=== PATIENT | male | born 1930 | race Caucasian/White ===

== ENCOUNTER 2017-01-14 14:13 | Emergency (ER) | payer BC ==
[~2017-01-14] VITALS: Ht 172.7 cm; Wt 66.0 kg
[~2017-01-14 14:13] MED LIST: CRD2 PO; CZR25 PO; MULTCAP42 PO; [UNRECOGNIZED DRUG - CODE] PO
[2017-01-14 14:26] VITALS: TEMP 36.7; Ht 172.7 cm; Wt 66.0 kg
[2017-01-14] MEDS ORDERED: DOXA1TAB88 PO (15:16)
[2017-01-14] MEDS ORDERED: ASPI81TA28 PO (15:16)
[2017-01-14] MEDS ORDERED: ACET-1256 PO (15:16)
[2017-01-14] MEDS ORDERED: CARB25TA12 PO (15:16)
[2017-01-14] MEDS ORDERED: POLY335019 PO (15:16)
[2017-01-14] MEDS ORDERED: NAPR-1169 PO (15:16)
--- NOTE | 2017-01-14 15:38 | DIAGNOSTIC IMAGING REPORT ---
LUMBAR SPINE 5 VIEWS HISTORY: L-S1 back pain x1wk COMPARISON: Lumbar spine 05/06/2011. FINDINGS: There is no fracture. 3 mm of retrolisthesis of L2 on L3 and 3 mm of anterolisthesis of L4 and L5. This is similar to the prior study. Mild to moderate disc space narrowing with large endplate osteophytes throughout the lumbar spine. There is moderate to severe facet arthrosis within the mid to lower lumbar spine. This remains unchanged. IMPRESSION: Similar degenerative changes as described above. No acute fracture within the lumbar spine. Electronically signed by: Esdras Hinkle M.D. 01/14/2017 3:37 PM Dictated Date/Time: 01/14/2017 3:33 PM
--- NOTE | 2017-01-14 16:09 | EMERGENCY ROOM VISIT NOTE ---
ED Visit Note First contact with patient: 14:46 I saw this patient in conjunction with Dontrell Boo PA-C. I agree with his decision-making and treatment plan.
[2017-01-14] MEDS ORDERED: HYDR-5688 PO (16:18)
[2017-01-14 16:26] VITALS: BP 153/82; PULSE 77; O2SAT 100
--- NOTE | 2017-01-15 10:30 | EMERGENCY ROOM VISIT NOTE ---
ED Visit Note First contact with patient: 14:46 Chief Complaint: Lower back pain. History of Present Illness: Mr. Bro is an 86-year-old white male who ambulates into the ED accompanied by multiple family members complaining of lumbar back pain. Historically patient denies any prior significant back disease/surgeries. Patient reports 6 days ago he spilled something on the floor. He then went down and now the floor and scrub the floor to clean up the mass. He reports while he was scrubbing the floor he felt like he "pulled something". After standing he reports he had intermittent mild back pain. Since that time the pain has gradually increased in intensity. Currently he describes the pain as a sharp sensation. He places his discomfort predominantly over the right sacroiliac joint but does also report he has some mild pain over the left sacroiliac joint area. His pain occurs with the initial flexion at the waist to sit down and extension of the waist to stand up. Once he is in these positions he is comfortable and describes minimal pain. The severity of his pain is 10/10. His pain is nonradiating. His cranium improves when he is not flexing or extending at the waist. He has taken intermittent ibuprofen with minimal relief of his discomfort. He denies any associated fevers, chills, sweats, skin eruptions, skin color changes, urinary symptoms, hematuria, abdominal pain, nausea, vomiting, diarrhea, constipation, rectal bleeding, black/tarry stools, genital paresthesias, bowel and bladder dysfunction, lower extremity weakness/numbness/tingling. Review of Systems: As noted above in history of present illness. At least body systems were reviewed and found to be negative as noted above. Past Medical History: Hypertension, Parkinson's disease, status post right knee arthroplasty and tonsillectomy. Current Medications: Home Meds and Scripts Medications Dose Route/Sig Max Daily Dose Days Date Category Dose Instructions Miralax (Polyethylene Glycol 3350) 1 Pow 17 Gm PO DAILY PRN 01/14/17 Reported Tylenol (Acetaminophen) 500 Mg Tab 500-1,000 Mg PO DIRECTED PRN 01/14/17 Reported Naprosyn (Naproxen) 500 Mg Tab 500 Mg PO BID PRN 01/14/17 Reported Sinemet 25MG/100MG (Carbidopa/Levodopa) Tab 1 Tab PO TID 01/14/17 Reported TAKES AM, NOON, HS. Aspirin Ec (Aspirin) 81 Mg Tab 81 Mg PO QAM 01/14/17 Reported Doxazosin Mesylate 1 Mg Tab 1 Mg PO HS 01/14/17 Reported Selegiline HCl 5 Mg Tab 5 Mg PO BIDM 04/07/14 Reported MORNING AND NOON WITH MEALS Allergies to Medications: Bactrim, clopidogrel, allopurinol. Social History: Patient is currently retired; he lives with his and feels safe in his home environment; he denies tobacco use; he admits to alcohol use. Physical Examination: Vital Signs: Date Time Temp Pulse Resp B/P Pulse Ox O2 Delivery O2 Flow Rate FiO2 01/14/17 16:26 77 153/82 100 01/14/17 14:26 36.7 103 18 168/77 98 Room Air GENERAL: 86-year-old male in mild distress due to pain, nontoxic-appearing, afebrile and hemodynamically stable. Patient does rest comfortably but when he starts to flex and extend his lumbar spine as noted above his pain is apparently severe NEUROLOGICAL: Awake, alert and oriented to person, place and time. Answering questions appropriately and following commands. Normal gait. Good hand eye coordination. No focal motor or sensory deficits. SKIN: Warm, dry and pink. No soft tissue eruptions or trauma noted. HEENT: Atraumatic and normocephalic. PERRLA. Sclera white and conjunctiva pink. Airway patent. Speech normal. No lymphadenopathy. Trachea midline. No jugular venous distention. BACK: No tenderness over the bony cervical and thoracic spine. Mild tenderness over the area of the left sacroiliac joint without bony deformity, swelling or ecchymosis. Decreased range of motion predominantly in flexion and extension of the waist due to pain. Negative straight leg raise test. No CVA tenderness. THORAX: Lungs sounds are clear to auscultation and equal bilaterally with symmetrical chest wall. ABDOMEN: Flat, soft and nontender. Positive bowel sounds in all quadrants. No guarding, rigidity or organomegaly. EXTREMITIES: Moves all extremities well on command and with purpose. All distal neurovascular statuses are intact and equal bilaterally. No calf tenderness or cords. Lower Extremities: 2+ patellar and Achilles deep tendon reflexes intact and equal bilaterally. He was able to distinguish light sensations through all dermatomes of the legs and feet. 4/5 muscle strength in flexion and extension and abduction and abduction of the hips, flexion and extension of the knees and plantar flexion and dorsiflexion of the ankles. ED Course: Patient is assessed as noted above. Lumbar Spine X-Rays: Were reviewed by myself and read by the radiologist and shows no acute fractures. 3 mm retolisthesis of L2 on L3 and 3 mm of anterolisthesis of L4-L5 similar to previous x-rays. [id number] disc narrowing with large endplate osteophytes throughout the lumbar spine. Moderate to severe facet that arthrosis within the mid to lower lumbar spine. These x-rays were similar to previous from 2010. Patient was offered pain medication and refused. Patient's case was reviewed with Dr. Nguyễn; he independently assessed the patient we agreed on diagnostic approach, treatment, disposition and plan. Patient and family members were educated about jeermieight's findings and instructed on his treatment plan; they verbalized understanding and agreement with this plan. Clinical Impression: Lumbar back pain. Disposition: Patient discharged home in stable condition accompanied by his family member; prior to departure he was reassessed and subjectively reported he was feeling better. Plan: Patient was encouraged to continue his ibuprofen and if he felt like he was not receiving enough relief he was prescribed one Henry 5/325 tablets every 6 hours as needed for pain. Additional cough or measures were discussed with the patient including the use of ice and proper standing and moving techniques. Patient was encouraged to follow-up with family physician early this week for recheck. Patient was encouraged return the ED for worsening/uncontrolled pain, abdominal pain, nausea/vomiting, leg weakness/numbness/tingling or any new/concerning symptoms.
[2017-07-18] MEDS ORDERED: TPRSR25 PO (17:13)
[2017-07-18] MEDS ORDERED: ELAS-2208 (17:24)
== END 2017-01-14 16:27 | disposition home or self-care (01) ==
LOC: C.EDB 14:14 → C.EDD 16:27
DX: M54.5 Low back pain (principal); I10 Essential (primary) hypertension; G20 Parkinson's disease; Z96.651 Presence of right artificial knee joint; Z98.890 Other specified postprocedural states; Z88.8 Allergy status to other drugs, medicaments and biological substances

== ENCOUNTER 2017-02-17 20:01 | Observation (INO) | payer BC ==
[~2017-02-17] VITALS: Ht 172.7 cm; Wt 69.8 kg
[~2017-02-17 20:01] MED LIST changes: +ACET-1256 PO; +ASPI81TA28 PO; +CARB25TA12 PO; -CRD2 PO; -CZR25 PO; +DOXA1TAB88 PO; +HYDR-5688 PO; -MULTCAP42 PO; +NAPR-1169 PO; +POLY335019 PO
[2017-02-17 20:34] LABS: BASO % 0.2 %; BASO ABS # 0.01 K/uL (0-0.2); COMPLETE YES; EOS % 1.5 %; HEMATOCRIT 41.2 % (42-52); IG% 0.2 %; LYMPH ABS # 1.53 K/uL (1.2-3.4); MEAN CELL VOLUME 93.2 fL (80-100); MEAN CORPUSCULAR HEMOGLOBIN 30.8 pg (25-34); MEAN PLATELET VOLUME 10.8 fL (7.4-10.4); MONO % 12.3 %; NEUT % 57.8 %; PLATELET COUNT 216 K/uL (130-400); RED BLOOD COUNT 4.42 M/uL (4.7-6.1); WHITE BLOOD COUNT 5.46 K/uL (4.8-10.8)
[2017-02-17 20:43] LABS: ALT/SGPT 10 U/L (12-78); AST/SGOT 13 U/L (15-37); BLOOD UREA NITROGEN 23 mg/dl (7-18); BUN/CREATININE RATIO 20.9 (10-20); CALCIUM 8.5 mg/dl (8.5-10.1); CARBON DIOXIDE 29 mmol/L (21-32); CHLORIDE 104 mmol/L (98-107); GLUCOSE 108 mg/dl (70-99); SODIUM 141 mmol/L (136-145)
[2017-02-17 20:48] LABS: ALKALINE PHOSPHATASE 70 U/L (45-117); CKMB/CK RATIO 1.8 (0-3.0)
[2017-02-17] MEDS ORDERED: ONDANSETRON INJ 2 MG/ML 2 ML VIAL IV STA (20:49)
--- NOTE | 2017-02-17 20:50 | DIAGNOSTIC IMAGING REPORT ---
SINGLE VIEW CHEST CLINICAL HISTORY: Atypical chest pain. FINDINGS: 2 AP, portable, upright chest radiographs are compared to study dated 10/14/2014. Correlation is made with chest CT dated 05/13/2011. The examination is degraded by portable technique and patient rotation. The heart is enlarged and there is atherosclerotic calcification of the thoracic aorta. The pulmonary vasculature is noncongested. Chronic interstitial thickening is similar to previous. No airspace consolidation, pleural effusion, or pneumothorax is seen. The skeletal structures are osteopenic. Degenerative change is noted throughout the thoracic spine. IMPRESSION: Cardiomegaly with no acute cardiopulmonary abnormality. Electronically signed by: Juan M Anne M.D. 02/17/2017 8:49 PM Dictated Date/Time: 02/17/2017 8:47 PM
[2017-02-17] MEDS ORDERED: SODIUM CHLORIDE 0.9% 1000ML 1,000 ML IV STA (20:55)
[2017-02-17] MEDS ORDERED: NITROGLYCERIN 0.4 MG SL PER TAB CHARGE SL PRN (21:00)
--- NOTE | 2017-02-17 21:59 | DIAGNOSTIC IMAGING REPORT ---
CT SCAN OF THE BRAIN WITHOUT IV CONTRAST CLINICAL HISTORY: Dizziness. COMPARISON STUDY: CT of the brain dated 10/14/2014. TECHNIQUE: Unenhanced axial CT scan of the brain is performed from the vertex to the skull base. CT DOSE: 537.48 mGy.cm FINDINGS: Brain parenchyma: There are age-related involutional changes noting mild subcortical and periventricular microangiopathic change. There is no hemorrhage, mass effect, or evidence of acute territorial ischemia by CT criteria. Hickey-white matter is preserved. No extra-axial fluid collection is seen. Ventricles, sulci, cisterns: Prominent secondary to involutional change. Intracranial vasculature: There is atherosclerotic calcification of the cavernous carotid and vertebral arteries. Calvarium: Unremarkable. Sinuses and mastoids: The visualized paranasal sinuses are clear. The mastoid air cells are well pneumatized. Orbits: The bony orbits are grossly intact. IMPRESSION: There is no hemorrhage, mass effect, or evidence of acute territorial ischemia by CT criteria. Electronically signed by: Juan M Anne M.D. 02/17/2017 9:58 PM Dictated Date/Time: 02/17/2017 9:56 PM
[2017-02-17] MEDS ORDERED: FSM70 PO (22:21)
[2017-02-17] MEDS ORDERED: NITROGLYCERIN OINT 2% 1GM PACKET EXT ONE (22:30)
[2017-02-17 23:56] LABS: MAGNESIUM 2.1 mg/dl (1.8-2.4)
[2017-02-18] VITALS (12 sets, daily range): BP systolic 100–168; BP diastolic 55–93; PULSE 44–92; TEMP 36.3–36.7; O2SAT 94–100; Ht 172.7 cm; Wt 69.8 kg
--- NOTE | 2017-02-18 00:29 | EMERGENCY ROOM VISIT NOTE ---
History Report prepared by Laureano: Netta Hutchins Under the Supervision of: Dr. Dontrell Sheriff M.D. First contact with patient: 20:26 Chief Complaint: CHEST PAIN Stated Complaint: CHEST PAIN Nursing Triage Summary: Pt reports feeling dizzy this morning and went away around noon. Pt then starting feeling chest tightness that progressively got worse throughout the day. Hx parkinsons. Pt received 324mg aspiring from EMS. History of Present Illness The patient is a 87 year old male who presents to the Emergency Room via EMS with complaints of constant mid-chest tightness starting about 4 hours ago. He woke up with dizziness this morning. He had another episode of dizziness after the chest pain started. He currently reports some lightheadedness. He is unable to ambulate as normal due to the dizziness. He also currently complains of some mild nausea. He received Aspirin in route to the Emergency Room. He denies any history of similar pain. He does not have a history of heart disease. He denies any history of stress tests or heart catheterization. He has a history of hypotension but is no longer on any medications. He also has a history of Parkinson's disease. Pt denies LOC, headache, fevers, chills, cough, diaphoresis, visual changes, neck pain, breathing difficulties, vomiting, abdominal pain, back pain, melena, hematochezia, urinary symptoms, numbness, weakness, lymphadenopathy, rash, or other complaints. Source of History: patient Onset: about 4 hours ago Position: chest (mid) Quality: other (tightness) Timing: constant Modifying Factors (Relieving): other (Aspirin) Associated Symptoms: + nausea Review of Systems See HPI for pertinent positives and negatives. A total of ten systems were reviewed and were otherwise negative. Past Medical & Surgical Medical Problems: (1) Anemia (2) Bronchitis (3) Chest pain (4) Closed head injury (5) Facial contusion (6) Facial laceration (7) Fall (8) Hyperlipidemia Nec/Nos (9) Hypertension Nos (10) Lower extremity edema (11) Parkinson disease (12) Thrombocytopenia (13) Weakness Surgical Problems: (1) S/P knee replacement Family History Cancer Diabetes mellitus Social History Smoking Status: Former Smoker Alcohol Use: occasionally Drug Use: none Marital Status: Occupation Status: retired Current/Historical Medications Scheduled Alendronate Sodium (Alendronate Sodium), 1 TAB PO WK Aspirin (Aspirin Ec), 81 MG PO QAM Carbidopa/Levodopa (Sinemet 25MG/100MG), 1 TAB PO TID Doxazosin Mesylate (Doxazosin Mesylate), 1 MG PO HS Selegiline HCl (Selegiline HCl), 5 MG PO BIDM Scheduled PRN Acetaminophen (Tylenol), 500-1,000 MG PO DIRECTED PRN for Pain Hydrocodone/Acetaminophen 5MG/325MG ([place] 5MG/325MG), 1 TABLET PO Q6H PRN for Pain Naproxen (Naprosyn), 500 MG PO BID PRN for Pain Polyethylene Glycol 3350 (Miralax), 17 GM PO DAILY PRN for Constipation Allergies Coded Allergies: Sulfamethoxazole w/Trimethoprim (Verified Allergy, Severe, ANEMIA, THROMBOCYTOPENIA, 02/17/17) Clopidogrel (Verified Allergy, Unknown, UNKNOWN, 02/17/17) Allopurinol (Verified Adverse Reaction, Intermediate, DIARRHEA, 02/17/17) Physical Exam Vital Signs Date Time Temp Pulse Resp B/P (MAP) Pulse Ox O2 Delivery O2 Flow Rate FiO2 02/18/17 00:02 86 18 117/79 97 Room Air 02/17/17 22:19 82 20 172/75 96 Room Air 02/17/17 20:50 80 20 149/86 97 Room Air 02/17/17 20:30 96 Room Air 02/17/17 20:24 90 20 172/81 96 Room Air 02/17/17 20:16 88 02/17/17 20:10 37.0 87 16 186/109 99 Room Air 02/17/17 20:10 99 Room Air 02/17/17 20:10 Room Air Physical Exam GENERAL: Awake, alert, well-appearing, in no distress HENT: Normocephalic, atraumatic. Oropharynx unremarkable. EYES: Normal conjunctiva. Sclera non-icteric. NECK: Supple. No nuchal rigidity. FROM. No JVD. RESPIRATORY: Clear to auscultation. CARDIAC: Regular rate, normal rhythm. Extremities warm and well perfused. Pulses equal. ABDOMEN: Soft, non-distended. No tenderness to palpation. No rebound or guarding. No masses. RECTAL: Deferred. MUSCULOSKELETAL: Chest examination reveals no tenderness. The back is symmetrical on inspection without obvious abnormality. There is no CVA tenderness to palpation. No joint edema. LOWER EXTREMITIES: Calves are equal size bilaterally and non-tender. No edema. No discoloration. NEURO: Normal sensorium. No sensory or motor deficits noted. Parkinson tremor. SKIN: No rash or jaundice noted. Medical Decision & Procedures ER Provider Diagnostic Interpretation: X-ray: Per my interpretation, radiologist review. SINGLE VIEW CHEST CLINICAL HISTORY: Atypical chest pain. FINDINGS: 2 AP, portable, upright chest radiographs are compared to study dated 10/14/2014. Correlation is made with chest CT dated 05/13/2011. The examination is degraded by portable technique and patient rotation. The heart is enlarged and there is atherosclerotic calcification of the thoracic aorta. The pulmonary vasculature is noncongested. Chronic interstitial thickening is similar to previous. No airspace consolidation, pleural effusion, or pneumothorax is seen. The skeletal structures are osteopenic. Degenerative change is noted throughout the thoracic spine. IMPRESSION: Cardiomegaly with no acute cardiopulmonary abnormality. Electronically signed by: Jua nM Anne M.D. 02/17/2017 8:49 PM Dictated Date/Time: 02/17/2017 8:[address]: Radiology results as stated below per my review and radiologist interpretation CT SCAN OF THE BRAIN WITHOUT IV CONTRAST CLINICAL HISTORY: Dizziness. COMPARISON STUDY: CT of the brain dated 10/14/2014. TECHNIQUE: Unenhanced axial CT scan of the brain is performed from the vertex to the skull base. CT DOSE: 537.48 mGy.cm FINDINGS: Brain parenchyma: There are age-related involutional changes noting mild subcortical and periventricular microangiopathic change. There is no hemorrhage, mass effect, or evidence of acute territorial ischemia by CT criteria. Hickey-white matter is preserved. No extra-axial fluid collection is seen. Ventricles, sulci, cisterns: Prominent secondary to involutional change. Intracranial vasculature: There is atherosclerotic calcification of the cavernous carotid and vertebral arteries. Calvarium: Unremarkable. Sinuses and mastoids: The visualized paranasal sinuses are clear. The mastoid air cells are well pneumatized. Orbits: The bony orbits are grossly intact. IMPRESSION: There is no hemorrhage, mass effect, or evidence of acute territorial ischemia by CT criteria. Electronically signed by: Juan M Anne M.D. 02/17/2017 9:58 PM Dictated Date/Time: 02/17/2017 9:56 PM Laboratory Results 02/17/17 19:40 Red Blood Count 4.42, Mean Corpuscular Volume 93.2, Mean Corpuscular Hemoglobin 30.8, Mean Corpuscular Hemoglobin Concent 33.0, Mean Platelet Volume 10.8, Neutrophils (%) (Auto) 57.8, Lymphocytes (%) (Auto) 28.0, Monocytes (%) (Auto) 12.3, Eosinophils (%) (Auto) 1.5, Basophils (%) (Auto) 0.2, Neutrophils # (Auto ) 3.16, Lymphocytes # (Auto) 1.53, Monocytes # (Auto) 0.67, Eosinophils # (Auto ) 0.08, Basophils # (Auto) 0.01 02/17/17 19:40 Test 02/17/17 19:40 White Blood Count 5.46 K/uL (4.8-10.8) Red Blood Count 4.42 M/uL (4.7-6.1) Hemoglobin 13.6 g/dL (14.0-18.0) Hematocrit 41.2 % (42-52) Mean Corpuscular Volume 93.2 fL (80-100) Mean Corpuscular Hemoglobin 30.8 pg (25-34) Mean Corpuscular Hemoglobin Concent 33.0 g/dl (32-36) Platelet Count 216 K/uL (130-400) Mean Platelet Volume 10.8 fL (7.4-10.4) Neutrophils (%) (Auto) 57.8 % Lymphocytes (%) (Auto) 28.0 % Monocytes (%) (Auto) 12.3 % Eosinophils (%) (Auto) 1.5 % Basophils (%) (Auto) 0.2 % Neutrophils # (Auto) 3.16 K/uL (1.4-6.5) Lymphocytes # (Auto) 1.53 K/uL (1.2-3.4) Monocytes # (Auto) 0.67 K/uL (0.11-0.59) Eosinophils # (Auto) 0.08 K/uL (0-0.5) Basophils # (Auto) 0.01 K/uL (0-0.2) RDW Standard Deviation 47.6 fL (36.4-46.3) RDW Coefficient of Variation 13.9 % (11.5-14.5) Immature Granulocyte % (Auto) 0.2 % Immature Granulocyte # (Auto) 0.01 K/uL (0.00-0.02) Activated Partial Thromboplast Time 26.7 SECONDS (21.0-31.0) Partial Thromboplastin Ratio 1.0 Anion Gap 8.0 mmol/L (3-11) Est Creatinine Clear Calc Drug Dose 45.0 ml/min Estimated GFR () 70.1 Estimated GFR (Non- 60.5 BUN/Creatinine Ratio 20.9 (10-20) Calcium Level 8.5 mg/dl (8.5-10.1) Magnesium Level 2.1 mg/dl (1.8-2.4) Total Bilirubin 0.5 mg/dl (0.2-1) Direct Bilirubin 0.1 mg/dl (0-0.2) Aspartate Amino Transf (AST/SGOT) 13 U/L (15-37) Alanine Aminotransferase (ALT/SGPT) 10 U/L (12-78) Alkaline Phosphatase 70 U/L (45-117) Total Creatine Kinase 50 U/L (39-308) Creatine Kinase MB 0.9 ng/ml (0.5-3.6) Creatine Kinase MB Ratio 1.8 (0-3.0) Troponin I < 0.015 ng/ml (0-0.045) Total Protein 7.6 gm/dl (6.4-8.2) Albumin 4.1 gm/dl (3.4-5.0) Lipase 457 U/L (73-393) Thyroid Stimulating Hormone (TSH) 2.090 uIu/ml (0.300-4.500) Laboratory results reviewed by me Medications Administered Medications (Trade) Dose Ordered Sig/Robbie Route Start Time Stop Time Status Last Admin Dose Admin Ondansetron HCl (Zofran Inj) 4 mg NOW STAT IV 02/17/17 20:49 02/17/17 20:51 DC 02/17/17 20:59 4 MG Sodium Chloride 1,000 ml @ 125 mls/hr Q8H STAT IV 02/17/17 20:55 02/18/17 04:54 02/17/17 21:00 125 MLS/HR Nitroglycerin (Nitroglycerin 2% Oint) 0.5 inch NOW ONCE EXT 02/17/17 22:30 02/18/17 00:04 DC 02/17/17 22:45 0.5 INCH ECG Indication: chest pain Rate (beats per minute): 85 Rhythm: sinus rhythm Findings: PAC, no acute ischemic change ED Course 2025: The patient was evaluated in room C04. A complete history and physical exam was performed. Medication Reconciliation: I attest that I have personally reviewed the patient' s current medication list Blood pressure screening: Patient was found to have an elevated blood pressure and was referred to their primary doctor for recheck and further treatment. 2048: Zofran Inj 4 mg IV 2099: Nitroglycerin 0.4 mg SL 2212: Upon reexamination, the patient was resting comfortably. I discussed the test results and treatment plan with him. The patient will be evaluated for further management. 2229: Nitroglycerin 0.5 Inch EXT 2235: I discussed the patient's case with Dr. Rosario, from [facility]. Medical Decision Triage Nursing notes reviewed. The patient's presentation and history were concerning for chest tightness and difficulty walking. Etiologies such as cardiac ischemia, aortic dissection, pulmonary embolism, pneumonia, pneumothorax, musculoskeletal, infections, gastrointestinal, neurologic as well as others were entertained. The patient was evaluated. He had been given aspirin. His ECG was nonischemic. Blood work was obtained. The patient was ordered Zofran and nitroglycerin. Head CT was ordered. Chest x-ray was unremarkable. The patient declined any nitroglycerin tablets. On reassessment his blood pressure still moderately elevated. He was feeling better but still had some tightness. He was given nitro paste. His CBC and chemistry panel were unremarkable. The patient had an unremarkable head CT. Given his chest symptoms and neurologic and plans the patient will need further evaluation and management in hospital. Consult patient was made with internal medicine. Patient was evaluated in the Emergency Room for further treatment. The chart was completed utilizing [employer] Speech voice recognition software. Grammatical errors, random word insertions, pronoun errors, and incomplete sentences are an occasional consequence of this system due to software limitations, ambient noise, and hardware issues. Any formal questions or concerns about the content, text, or information contained within the body of this dictation should be directly addressed to the physician for clarification. Consults Time Called: 2229 Consulting Physician: Dr. Rosario, from [facility] Returned Call: [phone] I discussed the [facility] Impression Primary Impression: Substernal chest pain Additional Impression: Gait disturbance Scribe Attestation The scribe's documentation has been prepared under my direction and personally reviewed by me in its entirety. I confirm that the note above accurately reflects all work, treatment, procedures, and medical decision making performed by me. Departure Information Dispostion Being Evaluated By Hospitalist Referrals Micheal Ramirez M.D. (PCP) Patient Instructions My [facility] Problem Qualifiers
[2017-02-18] MEDS ORDERED: IV FLUIDS COMPLETED PRN (00:45)
[2017-02-18] MEDS ORDERED: ACETAMINOPHEN 325 MG TAB PO PRN (01:00)
[2017-02-18] MEDS ORDERED: POLYETHYLENE (MIRALAX) 17 GM PACK PO PRN (01:00)
[2017-02-18] MEDS ORDERED: ONDANSETRON INJ 2 MG/ML 2 ML VIAL IV PRN (01:00)
[2017-02-18] MEDS ORDERED: MoRPHine SULFATE 2 MG/ML CARP IV PRN (01:00)
[2017-02-18] MEDS ORDERED: NITROGLYCERIN 0.4 MG SL PER TAB CHARGE SL PRN (01:00)
[2017-02-18] MEDS ORDERED: HYDROCODONE/ACETAMOPHEN 5/325MG TAB PO PRN (01:00)
[2017-02-18] MEDS ORDERED: SODIUM CHLORIDE 0.9% 1000ML 1,000 ML IV ONE (02:15)
[2017-02-18 06:28] LABS: BASO % 0.4 %; BASO ABS # 0.02 K/uL (0-0.2); COMPLETE YES; HEMATOCRIT 37.9 % (42-52); IG% 0.2 %; LYMPH % 29.1 %; LYMPH ABS # 1.45 K/uL (1.2-3.4); MEAN CELL VOLUME 92.7 fL (80-100); MEAN CORPUSCULAR HEMOGLOBIN 29.8 pg (25-34); MEAN CORPUSCULAR HGB CONC 32.2 g/dl (32-36); MEAN PLATELET VOLUME 10.3 fL (7.4-10.4); MONO % 10.4 %; NEUT % 56.9 %; PLATELET COUNT 176 K/uL (130-400); RED BLOOD COUNT 4.09 M/uL (4.7-6.1); WHITE BLOOD COUNT 4.99 K/uL (4.8-10.8)
[2017-02-18 06:39] LABS: PROTHROMBIN TIME (PATIENT) 10.7 SECONDS (9.0-12.0)
[2017-02-18 06:56] LABS: BLOOD UREA NITROGEN 20 mg/dl (7-18); CALCIUM 8.2 mg/dl (8.5-10.1); CARBON DIOXIDE 29 mmol/L (21-32); CHLORIDE 108 mmol/L (98-107); CREATININE 0.99 mg/dl (0.60-1.40); GLUCOSE 89 mg/dl (70-99); SODIUM 143 mmol/L (136-145)
[2017-02-18] MEDS ORDERED: LORAZEPAM 2 MG/ML 1 ML VIAL IV PRN (07:15)
[2017-02-18] MEDS ORDERED: LACTATED RINGER'S 1000ML 1,000 ML IV ONE (07:15)
[2017-02-18] MEDS ORDERED: LORAZEPAM 1 MG TAB PO PRN (07:30)
[2017-02-18] MEDS ORDERED: LORAZEPAM INJ 0.5 MG in SYRINGE 0.75 ML IV PRN (07:30)
[2017-02-18] MEDS: ASPIRIN 81 MG ECTAB PO SCH (07:53)
[2017-02-18] MEDS: THIAMINE HCL 100 MG TAB PO SCH (07:53)
[2017-02-18] MEDS: SELEGILINE HCL 5 MG CAP PO SCH ×2 (07:53→16:40)
[2017-02-18] MEDS: CARBIDOPA/LEVODOPA 25/100MG TAB PO SCH ×3 (07:53→20:16)
[2017-02-18] MEDS: FLINTSTONES COMPLETE CHEWABLE TAB PO SCH (07:53)
[2017-02-18] MEDS: ENOXAPARIN 40 MG/0.4 ML SYR SC SCH (07:54)
[2017-02-18] MEDS ORDERED: PNEUMOCOCCAL POLYSACCHARIDES 25 MCG/0.5 ML VIAL/SYR IM. ONE (08:00)
[2017-02-18] MEDS ORDERED: PNEUMOCOCCAL ADMINISTRATION CHARGE ONE (08:00)
[2017-02-18] MEDS ORDERED: GABAPENTIN 600 MG TAB PO ONE (08:00)
[2017-02-18] MEDS ORDERED: DOXAZosin TAB 1 MG TAB PO ONE (08:00)
--- NOTE | 2017-02-18 08:25 | HISTORY & PHYSICAL EXAMINATION ---
DATE OF ADMISSION: 02/18/2017 PRIMARY CARE PHYSICIAN: Dr. Ramirez. CHIEF COMPLAINT: Chest pain. HISTORY OF PRESENT ILLNESS: Hx obtained from px and records. Medical history significant for Parkinson disease, hypertension, chronic diastolic dysfunction as per records, PACs per records, past tobacco abuse, ETOH abuse as per records. Recent confinement August 2014 for leg swelling, attributed to not being very active. Yesterday morning, the patient noted dizziness described as lightheadedness, had chest tightness, out of breath, no cough symptoms. Patient does not check blood pressure at home. Admits to daily intake of OTC NSAIDs for right lower extremity pain. Denies abdominal pain. At the Emergency Room, systolic blood pressure noted to be 180s. Chest tightness relieved with nitroglycerin. MEDICAL HISTORY: As above. Deputy Sheriff Generalist/Bailiff is Dr. Cornejo of [facility]. SURGERIES: He has had a knee surgery, tonsillectomy, prostate biopsy, cataract surgery. HOME MEDICATIONS: Include MiraLax, aspirin, Tylenol, alendronate, Sinemet, doxazosin, naproxen. ALLERGIES: BACTRIM, PLAVIX. ALLOPURINOL FAMILY HISTORY: Hypertension. PERSONAL AND SOCIAL HISTORY: Past tobacco abuse. Daily alcohol beverage intake. ("2 swallows/day"), retired from TV work REVIEW OF SYSTEMS: As per HPI. all other ROS negative PHYSICAL EXAMINATION: VITAL SIGNS: Blood pressure was noted to be 186/109 pulse rate 86, RR 18, T 37 sats 100% in room air. GENERAL: Noted to be comfortable, no respiratory distress, looks younger for stated age. SKIN: Pallor. HEENT: Pale palpebral conjunctivae. Dry mucosa. NECK: No JVD. supple CHEST: Clear to auscultation. HEART: Regular rate and rhythm. ABDOMEN: Soft. EXTREMITIES: Minimal LE edema, no tenderness. NEUROLOGIC: no gross focality except for intention tremors. gait and stance not assessed LABORATORY DATA: Hemoglobin was noted to be 13.6, hematocrit 41.2, platelets 216. Sodium 140 chloride 104, CO2 23, glucose 108. trop 0 IMAGING DATA: Chest x-ray - cardiomegaly. CT head, no acute pathology. EKG as per my interpretation rate 85, normal sinus rhythm, no ischemia. PACs ASSESSMENT: 1. Chest pain, dizziness possibly from hypertensive urgency NSAID intake poss contributory. ro orthostasis as cause of dizziness 2. Parkinson's, stable on meds. 3. past tobacco abuse. 4. alcohol abuse per records. 5 LE pain ro dvt PLAN: Observation PCU. facilitate home Cardura, may need augment home rx check orthostatic VS Follow cardiac markers 2D echo, Cardio consult RE cp (Dr. Cornejo as per patient request) px counselled about adverse effects of NSAIDs on HTN LE dopplers ro dvt DT precautions. PT OT eval DVT prophylaxis. Lovenox SQ Full code. Patient's son requesting updates from providers. Mr. Erich Bro at [phone]. MTDD
[2017-02-18] MEDS ORDERED: METOPROLOL TARTRATE 1 MG/ML VIAL IV ONE (09:00)
--- NOTE | 2017-02-18 09:56 | DIAGNOSTIC IMAGING REPORT ---
BILATERAL LOWER EXTREMITY VENOUS DOPPLER HISTORY: leg pain COMPARISON STUDY: None. FINDINGS: There is normal compressibility, flow, and augmentation within the bilateral lower extremity deep venous systems. IMPRESSION: No DVT within the right or left lower extremity. Electronically signed by: Esdras Hinkle M.D. 02/18/2017 9:54 AM Dictated Date/Time: 02/18/2017 9:54 AM
[2017-02-18] MEDS: GABAPENTIN 600 MG TAB PO SCH ×2 (13:58→20:16)
--- NOTE | 2017-02-18 15:29 | Progress Note ---
Internal Med Progress Note Date of Service: Feb 18, 2017. Provider Documentation: SUBJECTIVE: Patient denies any complaints today. No dizziness, chest tightness, pain, sob, cough, fever, chills, headaches, vertigo, nausea, vomiting No fever, chills. OBJECTIVE: Vital Signs-as noted below Exam: General-AAOX3, no distress Neck-Supple Lungs-AEBE , no wheezing, rhonchi Heart-S1, S2 normal Abdomen-Soft , non tender, BS present Extremities-No edema Neuro-AAOX3, Power 5/5 all extremities, No sensory deficits Lab data as noted below. ASSESSMENT & PLAN: ASSESSMENT AND PLAN : DIZZINESS- Had 2 episodes of dizziness yesterday - AM and PM described as " feeling that he would pass out". In evening, just couldnt get up and had some chest tightness and thus was brought to ER. No more dizziness or chest tightness today. No associated symptoms or neurological deficits. -D/D considered: Vasovagal, Autonomic dysfunction with hx of parkinsons disease of sinemet, posterior circulation stroke but lightheadedness more than vertigo with no associated neurological symptoms or signs, so less likely. -Will do orthostats -PT/OT -Work up- CT scan head- no acute abnormalities CHEST TIGHTNESS From hx , less likely to be cardiac etiology -EKG- no acute ischemic changes, Troponin x 2 negative -Cardiology consulted HYPERTENSIVE URGENCY BP 186/100s on presentation, now down to 110s -S/P IV Metoprolol 5 mg x 1 dose -Not on any medications at home. -Will monitor BP closely and accordingly add new medication as BP down already ELEVATED LIPASE No signs or symptoms of pancreatitis -Monitor ALCOHOL USE Daily 2-3 glasses of whiskey PARKINSONS -Says gait has not been an issue, was able to ambulate and go up and down the stairs yesterday -Continue with sinemet -PT/OT ordered DVT PRECAUTIONS FULL CODE DISPOSITION Continue with tele monitoring The patient's son requesting updates from providers, Mr. Erich Bro . Vital Signs: Date Time Temp Pulse Resp B/P (MAP) Pulse Ox O2 Delivery O2 Flow Rate FiO2 02/18/17 15:40 36.5 44 17 110/70 (83) 98 Room Air 02/18/17 14:19 92 104/59 (74) 02/18/17 12:00 Room Air 02/18/17 11:31 36.3 87 16 128/63 (84) 97 Room Air 02/18/17 09:09 84 110/73 (85) 02/18/17 09:00 84 110/73 02/18/17 08:00 Room Air 02/18/17 07:40 36.4 87 16 168/93 (118) 96 Room Air 02/18/17 04:52 36.7 86 20 166/79 Room Air 02/18/17 01:55 36.7 86 20 166/79 (108) 100 Room Air 02/18/17 01:36 79 20 155/72 97 02/18/17 00:02 86 18 117/79 97 Room Air 02/17/17 22:19 82 20 172/75 96 Room Air 02/17/17 20:50 80 20 149/86 97 Room Air 02/17/17 20:30 96 Room Air 02/17/17 20:24 90 20 172/81 96 Room Air 02/17/17 20:16 88 02/17/17 20:10 37.0 87 16 186/109 99 Room Air 02/17/17 20:10 99 Room Air 02/17/17 20:10 Room Air Lab Results: Results Past 24 Hours Test 02/17/17 19:40 02/18/17 06:15 Range/Units White Blood Count 5.46 4.99 4.8-10.8 K/uL Red Blood Count 4.42 4.09 4.7-6.1 M/uL Hemoglobin 13.6 12.2 14.0-18.0 g/dL Hematocrit 41.2 37.9 42-52 % Mean Corpuscular Volume 93.2 92.7 80-100 fL Mean Corpuscular Hemoglobin 30.8 29.8 25-34 pg Mean Corpuscular Hemoglobin Concent 33.0 32.2 32-36 g/dl Platelet Count 216 176 130-400 K/uL Mean Platelet Volume 10.8 10.3 7.4-10.4 fL Neutrophils (%) (Auto) 57.8 56.9 % Lymphocytes (%) (Auto) 28.0 29.1 % Monocytes (%) (Auto) 12.3 10.4 % Eosinophils (%) (Auto) 1.5 3.0 % Basophils (%) (Auto) 0.2 0.4 % Neutrophils # (Auto) 3.16 2.84 1.4-6.5 K/uL Lymphocytes # (Auto) 1.53 1.45 1.2-3.4 K/uL Monocytes # (Auto) 0.67 0.52 0.11-0.59 K/uL Eosinophils # (Auto) 0.08 0.15 0-0.5 K/uL Basophils # (Auto) 0.01 0.02 0-0.2 K/uL RDW Standard Deviation 47.6 47.0 36.4-46.3 fL RDW Coefficient of Variation 13.9 13.8 11.5-14.5 % Immature Granulocyte % (Auto) 0.2 0.2 % Immature Granulocyte # (Auto) 0.01 0.01 0.00-0.02 K/uL Activated Partial Thromboplast Time 26.7 21.0-31.0 SECONDS Partial Thromboplastin Ratio 1.0 Sodium Level 141 143 136-145 mmol/L Potassium Level 4.0 4.0 3.5-5.1 mmol/L Chloride Level 104 108 98-107 mmol/L Carbon Dioxide Level 29 29 21-32 mmol/L Anion Gap 8.0 6.0 3-11 mmol/L Blood Urea Nitrogen 23 20 7-18 mg/dl Creatinine 1.10 0.99 0.60-1.40 mg/dl Est Creatinine Clear Calc Drug Dose 45.0 50.0 ml/min Estimated GFR () 70.1 79.6 Estimated GFR (Non- 60.5 68.7 BUN/Creatinine Ratio 20.9 20.0 10-20 Random Glucose 108 89 70-99 mg/dl Calcium Level 8.5 8.2 8.5-10.1 mg/dl Magnesium Level 2.1 1.8-2.4 mg/dl Total Bilirubin 0.5 0.2-1 mg/dl Direct Bilirubin 0.1 0-0.2 mg/dl Aspartate Amino Transf (AST/SGOT) 13 15-37 U/L Alanine Aminotransferase (ALT/SGPT) 10 12-78 U/L Alkaline Phosphatase 70 45-117 U/L Total Creatine Kinase 50 39-308 U/L Creatine Kinase MB 0.9 0.5-3.6 ng/ml Creatine Kinase MB Ratio 1.8 0-3.0 Troponin I < 0.015 < 0.015 0-0.045 ng/ml Total Protein 7.6 6.4-8.2 gm/dl Albumin 4.1 3.4-5.0 gm/dl Lipase 457 637 73-393 U/L Thyroid Stimulating Hormone (TSH) 2.090 0.300-4.500 uIu/ml Prothrombin Time 10.7 9.0-12.0 SECONDS Prothromb Time International Ratio 1.0 0.9-1.1
--- NOTE | 2017-02-18 19:54 | Cardiology Consultation ---
Cardiology Consultation Date of Consultation: Feb 18, 2017 History of Present Illness Nabil Bro is a 87 year old male seen in cardiology consultation per the request of Dr. Devi for evaluation of chest discomfort. The patient's primary switchboard receptionist is Dr. Nabil Cornejo of our practice. The patient is followed for his history of frequent premature atrial contractions. The Holter monitor in December 2014 revealed nearly 50,000 PACs in a 24 hour interval. He has reportedly been relatively asymptomatic from a premature atrial contractions standpoint and has not been treated with beta julia therapy perhaps due to concerns of orthostatics and gait stability setting of Parkinson' s disease. He presented to the emergency department the evening of 02/17/17 complaining of 4 hours of chest tightness as well as waxing and waning dizziness. He tells me that mostly his concern was that he was trying to walk and he just could not get his legs to move. He denies having any falls. He typically walks without a walker and without any assistance. He lives with his spouse and per his description is also debilitated and unable to walk. He was concerned regarding chest tightness but this has completely subsided since being in the hospital and he has no residual discomfort at present. EKG performed presentation 02/17/2017 at 20:06 reviewed independently revealed sinus rhythm at 85 bpm with frequent premature atrial contractions significant repolarization changes. Repeat tracing dated 02/18/2017 at 10:59 AM revealed sinus rhythm with frequent premature atrial contractions in a pattern of atrial bigeminy. Orthostatic vital signs have been taken this evening at 1712 his blood pressure was 111/55 sitting 100/60 standing. Serial cardiac isoenzymes are negative. His blood pressure was elevated on presentation at 186/109, this is normalized with most recent reading of 100/60 mmHg. History Past Medical History: 1. History of hypertension, off medications due to Parkinson's disease 2. Parkinson's disease 3. History of pancytopenia for which she previously followed with hematology 4. Prior tobacco use 5. Dyslipidemia Past Surgical History: 1. Right knee arthroplasty 2013 2. Tonsillectomy and adenoidectomy 3. Pilonidal cyst surgery 4. Prostate biopsy 5. Cataract surgery Social History: He quit smoking 1963. Received doesn't penetrate television station Family History: Mother had history of lung carcinoma and diabetes. Brother with history of hypertension. Review Of Systems See above for pertinent positives & negatives. A total of 10 systems reviewed and were otherwise negative. Allergies Coded Allergies: Sulfamethoxazole w/Trimethoprim (Verified Allergy, Severe, ANEMIA, THROMBOCYTOPENIA, 02/17/17) Clopidogrel (Verified Allergy, Unknown, UNKNOWN, 02/17/17) Allopurinol (Verified Adverse Reaction, Intermediate, DIARRHEA, 02/17/17) Medications Reported Home Medications Medications Dose Route/Sig Max Daily Dose Days Date Category Dose Instructions Alendronate Sodium 70 Mg Tab 1 Tab PO WK 02/17/17 Reported Collins 5MG/325MG (Acetaminophen/Hydrocodone Bitart) Tab 1 Tablet PO Q6H PRN 01/14/17 Rx For Initial Treatment Miralax (Polyethylene Glycol 3350) 1 Pow 17 Gm PO DAILY PRN 01/14/17 Reported Tylenol (Acetaminophen) 500 Mg Tab 500-1,000 Mg PO DIRECTED PRN 01/14/17 Reported Naprosyn (Naproxen) 500 Mg Tab 500 Mg PO BID PRN 01/14/17 Reported Sinemet 25MG/100MG (Carbidopa/Levodopa) Tab 1 Tab PO TID 01/14/17 Reported TAKES AM, NOON, HS. Aspirin Ec (Aspirin) 81 Mg Tab 81 Mg PO QAM 01/14/17 Reported Doxazosin Mesylate 1 Mg Tab 1 Mg PO HS 01/14/17 Reported Selegiline HCl 5 Mg Tab 5 Mg PO BIDM 04/07/14 Reported MORNING AND NOON WITH MEALS Physical Exam Vital Signs (Last 8hrs): Last 8 Hrs Date Time Temp Pulse Resp B/P (MAP) Pulse Ox O2 Delivery O2 Flow Rate FiO2 02/18/17 17:12 80 111/55 (73) 02/18/17 17:12 88 100/60 (73) 02/18/17 17:11 76 124/67 (86) 02/18/17 16:00 Room Air 02/18/17 15:40 36.5 76 17 110/70 (83) 98 Room Air 02/18/17 14:19 92 104/59 (74) 02/18/17 12:00 Room Air 02/18/17 11:31 36.3 87 16 128/63 (84) 97 Room Air General Appearance: Alert and Oriented x3. NAD. Head: Normocephalic Atraumatic. Eyes: PERRLA, EOMI, conjunctiva and sclera clear Neck: Supple. No carotid bruits noted. No JVD. No HJD. Respiratory: Breath sounds clear to auscultation bilaterally. No w/r/r. Cardiovascular: Reg rate and rhythm. S1 and S2 noted. No murmurs, rubs, gallops. PMI non displace. Abdomen: Normal bowel sounds, soft nontender. no abdominal bruits. Extremities: No edema, no clubbing or cyanosis. distal pulses 2/4 bilaterally. Neuro: No focal deficits. Psychiatric: Normal affect. Data Last 24 Hours Test 02/17/17 19:40 02/18/17 06:15 White Blood Count 5.46 K/uL 4.99 K/uL Red Blood Count 4.42 M/uL 4.09 M/uL Hemoglobin 13.6 g/dL 12.2 g/dL Hematocrit 41.2 % 37.9 % Mean Corpuscular Volume 93.2 fL 92.7 fL Mean Corpuscular Hemoglobin 30.8 pg 29.8 pg Mean Corpuscular Hemoglobin Concent 33.0 g/dl 32.2 g/dl Platelet Count 216 K/uL 176 K/uL Mean Platelet Volume 10.8 fL 10.3 fL Neutrophils (%) (Auto) 57.8 % 56.9 % Lymphocytes (%) (Auto) 28.0 % 29.1 % Monocytes (%) (Auto) 12.3 % 10.4 % Eosinophils (%) (Auto) 1.5 % 3.0 % Basophils (%) (Auto) 0.2 % 0.4 % Neutrophils # (Auto) 3.16 K/uL 2.84 K/uL Lymphocytes # (Auto) 1.53 K/uL 1.45 K/uL Monocytes # (Auto) 0.67 K/uL 0.52 K/uL Eosinophils # (Auto) 0.08 K/uL 0.15 K/uL Basophils # (Auto) 0.01 K/uL 0.02 K/uL RDW Standard Deviation 47.6 fL 47.0 fL RDW Coefficient of Variation 13.9 % 13.8 % Immature Granulocyte % (Auto) 0.2 % 0.2 % Immature Granulocyte # (Auto) 0.01 K/uL 0.01 K/uL Activated Partial Thromboplast Time 26.7 SECONDS Partial Thromboplastin Ratio 1.0 Sodium Level 141 mmol/L 143 mmol/L Potassium Level 4.0 mmol/L 4.0 mmol/L Chloride Level 104 mmol/L 108 mmol/L Carbon Dioxide Level 29 mmol/L 29 mmol/L Anion Gap 8.0 mmol/L 6.0 mmol/L Blood Urea Nitrogen 23 mg/dl 20 mg/dl Creatinine 1.10 mg/dl 0.99 mg/dl Est Creatinine Clear Calc Drug Dose 45.0 ml/min 50.0 ml/min Estimated GFR () 70.1 79.6 Estimated GFR (Non- 60.5 68.7 BUN/Creatinine Ratio 20.9 20.0 Random Glucose 108 mg/dl 89 mg/dl Calcium Level 8.5 mg/dl 8.2 mg/dl Magnesium Level 2.1 mg/dl Total Bilirubin 0.5 mg/dl Direct Bilirubin 0.1 mg/dl Aspartate Amino Transf (AST/SGOT) 13 U/L Alanine Aminotransferase (ALT/SGPT) 10 U/L Alkaline Phosphatase 70 U/L Total Creatine Kinase 50 U/L Creatine Kinase MB 0.9 ng/ml Creatine Kinase MB Ratio 1.8 Troponin I < 0.015 ng/ml < 0.015 ng/ml Total Protein 7.6 gm/dl Albumin 4.1 gm/dl Lipase 457 U/L 637 U/L Thyroid Stimulating Hormone (TSH) 2.090 uIu/ml Prothrombin Time 10.7 SECONDS Prothromb Time International Ratio 1.0 EKG on presentation repeat today as noted above. Telemetry revealed sinus rhythm with PACs. CT of the brain without hemorrhage, mass effect or evidence of acute territorial ischemia. Lower extremity venous duplex negative for DVT. Chest x-ray report per radiology revealed cardiomegaly without acute cardiopulmonary disease. Assessment & Plan Impression: 87-year-old male 1. Transient chest discomfort, negative EKG, negative cardiac enzymes 2. 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 Hypotension, concern for autonomic insufficiency in the setting of Parkinson 's disease. Recommendations: At present, I recommend just continued surveillance for his chest discomfort. He obviously would not be able to complete an exercise stress test. Given his generalized frailty, I would have significant reservations about proceeding with stress testing as even if he did have ischemia, he is a poor candidate for cardiac catheterization. At present recommend continued conservative management. Resting echocardiogram will be requested and will be reviewed. Hubert Canada D.O.
--- NOTE | 2017-02-18 20:10 | ECHOCARDIOGRAM REPORT ---
*NOTICE TO RECEIVING DEMOCRAT AGENCY This information is strictly Confidential and protected under [place] law. [place] law prohibits you from making any further disclosure of this information unless further disclosure is expressly permitted by the written consent of the person to whom it pertains or is authorized by law. A general authorization for the release of medical or other information is not sufficient for this purpose. Hospital accepts no responsibility if the information is made available to any other person, INCLUDING THE PATIENT. Interpretation Summary * Name: PAMELA PATEL Study Date: 02/18/2017 10:22 AM BP: 166/79 mmHg * Patient Location: [facility]\S\N276\S\2 HR: 85 * : 1930 (M/d/yyyy) Gender: Male Height: 68 in * Age: 87 yrs Ethnicity: [place] Weight: 145 lb * Ordering Physician: Pipe Rosario * Referring Physician: Self, Referred * Performed By: Pipe Arana RDCS * * Reason For Study: Chest pain * BSA: 1.8 m2 * -- Conclusions -- * Sinus rhythm with frequent supraventricular ectopy was present during the echocardiogram. * The left ventricular wall motion is normal. * The LV Ejection Fraction = 55-60%. * Aortic valve sclerosis moderate, without significant aortic valvular stenosis. * There is mild mitral regurgitation. * Grade I diastolic dysfunction, (abnormal relaxation pattern). Procedure Details * A complete two-dimensional transthoracic echocardiogram was performed (2D, M-mode, Doppler and color flow Doppler). * The study was technically adequate. Left Ventricle * The left ventricle is normal in size. * There is normal left ventricular wall thickness. * Left ventricular systolic function is normal. * Ejection Fraction = 55-60%. * The left ventricular wall motion is normal. Right Ventricle * The right ventricle is normal size. * The right ventricular systolic function is normal as assessed by tricuspid annular plane systolic excursion (TAPSE) (normal >1.5 cm). Atria * The left atrial size is normal. * Right atrial size is normal. * There is no evidence of atrial septal defect, but resolution does not allow assessment for a patent foramen ovale. Mitral Valve * There is mild mitral annular calcification. * There is no mitral valve stenosis. * There is mild mitral regurgitation. Tricuspid Valve * The tricuspid valve is normal. * There is no tricuspid stenosis. * Significant tricuspid regurgitation is absent. * Doppler findings do not suggest pulmonary hypertension. Aortic Valve * The aortic valve is trileaflet. * Aortic valve sclerosis moderate, without significant aortic valvular stenosis. * Aortic stenosis is absent. * There is no significant aortic regurgitation. Pulmonic Valve * The pulmonary valve is not well seen, but the Doppler examination is normal without significant regurgitation or stenosis. Great Vessels * The aortic root and proximal ascending aorta are normal sized. Pericardium/Pleural * There is no pericardial effusion. Great Vessels * Normal inferior vena cava diameter and respiratory variation suggests normal central venous pressure. Left Ventricular Diastolic Function * Grade I diastolic dysfunction, (abnormal relaxation pattern). MMode 2D Measurements and Calculations IVSd 1.5 cm IVSs 1.8 cm LVIDd 4.6 cm LVIDs 4.3 cm LVPWd 1.5 cm LVPWs 1.8 cm IVS/LVPW 0.98 FS 6.4 % EDV(Teich) 99.4 ml ESV(Teich) 85.1 ml EF(Teich) 14.4 % EDV(cubed) 100.0 ml ESV(cubed) 82.0 ml EF(cubed) 18.1 % % IVS thick 19.5 % % LVPW thick 19.7 % LV mass(C)d 293.2 grams LV mass(C)dI 164.4 grams/m\S\2 LV mass(C)s 353.4 grams LV mass(C)sI 198.2 grams/m\S\2 SV(Teich) 14.4 ml SI(Teich) 8.1 ml/m\S\2 SV(cubed) 18.1 ml SI(cubed) 10.1 ml/m\S\2 EPSS 0.34 cm Ao root diam 3.4 cm Ao root area 9.0 cm\S\2 ACS 1.0 cm LA dimension 4.5 cm asc Aorta Diam 2.6 cm LA/Ao 1.3 LVOT diam 2.0 cm LVOT area 3.1 cm\S\2 LVAd ap4 20.0 cm\S\2 LVLd ap4 7.2 cm EDV(MOD-sp4) 45.0 ml LVAs ap4 11.7 cm\S\2 LVLs ap4 6.5 cm ESV(MOD-sp4) 18.0 ml EF(MOD-sp4) 60.0 % LVAd ap2 22.2 cm\S\2 LVLd ap2 7.5 cm EDV(MOD-sp2) 55.0 ml LVAs ap2 12.9 cm\S\2 LVLs ap2 6.4 cm ESV(MOD-sp2) 22.0 ml EF(MOD-sp2) 60.0 % SV(MOD-sp4) 27.0 ml SI(MOD-sp4) 15.1 ml/m\S\2 SV(MOD-sp2) 33.0 ml SI(MOD-sp2) 18.5 ml/m\S\2 Doppler Measurements and Calculations MV E max geremias 87.4 cm/sec MV A max geremias 131.3 cm/sec MV E/A 0.67 MV dec time 0.22 sec Ao V2 max 200.3 cm/sec Ao max PG 16.0 mmHg Ao max PG (full) 11.1 mmHg DIANA(V,A) 1.7 cm\S\2 DIANA(V,D) 1.7 cm\S\2 LV V1 max PG 5.0 mmHg LV V1 max 111.8 cm/sec PA V2 max 117.3 cm/sec PA max PG 5.5 mmHg PI end-d geremias 99.9 cm/sec TR max geremias 191.8 cm/sec
[2017-02-18] MEDS ORDERED: DOXAZosin TAB 1 MG TAB PO SCH (21:00)
[2017-02-19 04:00] VITALS: BP 95/56; PULSE 83; TEMP 36.8; O2SAT 96
[2017-02-19] MEDS: GABAPENTIN 600 MG TAB PO SCH ×2 (05:37→14:20)
[2017-02-19 07:27] VITALS: BP 101/63; PULSE 41; TEMP 36.3; O2SAT 96
[2017-02-19] MEDS: ASPIRIN 81 MG ECTAB PO SCH (07:52)
[2017-02-19] MEDS: THIAMINE HCL 100 MG TAB PO SCH (07:52)
[2017-02-19] MEDS: ENOXAPARIN 40 MG/0.4 ML SYR SC SCH (07:52)
[2017-02-19] MEDS: SELEGILINE HCL 5 MG CAP PO SCH (07:52)
[2017-02-19] MEDS: FLINTSTONES COMPLETE CHEWABLE TAB PO SCH (07:52)
[2017-02-19] MEDS: CARBIDOPA/LEVODOPA 25/100MG TAB PO SCH ×2 (07:53→14:20)
[2017-02-19 07:59] LABS: BUN/CREATININE RATIO 22.7 (10-20); CALCIUM 8.4 mg/dl (8.5-10.1); CREATININE 0.82 mg/dl (0.60-1.40); POTASSIUM 4.1 mmol/L (3.5-5.1)
--- NOTE | 2017-02-19 09:37 | Progress Note ---
Internal Med Progress Note Date of Service: Feb 19, 2017. Provider Documentation: SUBJECTIVE: Patient did have c/o dizziness yesterday, no association with change of position , but orthostatics significantly positive. Today feeling well and denies any dizziness, chest tightness, pain, sob, cough, fever, chills, headaches, vertigo, nausea, vomiting No fever, chills. Tolerating PO well. OBJECTIVE: Vital Signs-as noted below Exam: General-AAOX3, no distress Neck-Supple Lungs-AEBE , no wheezing, rhonchi Heart-S1, S2 normal Abdomen-Soft , non tender, BS present Extremities-No edema Neuro-AAOX3, Power 5/5 all extremities, No sensory deficits Lab data as noted below. 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 In evening, just couldnt get up and had some chest tightness and thus was brought to ER. No more dizziness or chest tightness today. No associated symptoms or neurological deficits. -D/D considered: Vasovagal, Posterior circulation stroke but lightheadedness more than vertigo with no associated neurological symptoms or signs, so less likely. -Orthostats- significantly positive . Explained about changing positions slowly -PT/OT ordered -Work up- CT scan head- no acute abnormalities CHEST TIGHTNESS - Resolved From hx , less likely to be cardiac etiology. Resolved and no more episodes since admission. Was not associated with any symptoms concerning for cardiac etiology -EKG- no acute ischemic changes, Troponin x 2 negative -Cardiology consulted- No further intervention as likely chest tightness is non cardiac in etiology, Echo done- EF 55-60%, Gd I diastolic dysfunction, Normal wall motion HYPERTENSIVE URGENCY- Resolved BP 186/100s on presentation, now down to 110s- 90s -S/P IV Metoprolol 5 mg x 1 dose -Not on any medications at home. -Will avoid any antihypertensives as BP is already in 90s ELEVATED LIPASE No signs or symptoms of pancreatitis -Monitor ALCOHOL USE Daily 2-3 glasses of whiskey -Watch for withdrawal PARKINSONS DISEASE -Says gait has not been an issue, was able to ambulate and go up and down the stairs yesterday -Continue with sinemet -PT/OT ordered DVT PRECAUTIONS FULL CODE DISPOSITION Likely discharge today after PT/OT assessment The patient's son requesting updates from providers, Mr. Erich Bro . Vital Signs: Date Time Temp Pulse Resp B/P (MAP) Pulse Ox O2 Delivery O2 Flow Rate FiO2 02/19/17 12:00 Room Air 02/19/17 08:00 Room Air 02/19/17 07:27 36.3 41 16 101/63 (76) 96 Room Air 02/19/17 04:00 Room Air 02/19/17 04:00 36.8 83 18 95/56 (69) 96 Room Air 02/19/17 00:00 Room Air 02/18/17 23:21 36.5 66 16 119/69 (86) 98 Room Air 02/18/17 20:00 Room Air 02/18/17 19:43 36.7 64 16 122/62 (82) 94 Room Air 02/18/17 17:12 80 111/55 (73) 02/18/17 17:12 88 100/60 (73) 02/18/17 17:11 76 124/67 (86) 02/18/17 16:00 Room Air 02/18/17 15:40 36.5 76 17 110/70 (83) 98 Room Air 02/18/17 14:19 92 104/59 (74) Lab Results: Results Past 24 Hours Test 02/19/17 07:01 Range/Units Sodium Level 142 136-145 mmol/L Potassium Level 4.1 3.5-5.1 mmol/L Chloride Level 108 98-107 mmol/L Carbon Dioxide Level 26 21-32 mmol/L Anion Gap 8.0 3-11 mmol/L Blood Urea Nitrogen 19 7-18 mg/dl Creatinine 0.82 0.60-1.40 mg/dl Est Creatinine Clear Calc Drug Dose 62.5 ml/min Estimated GFR () 92.8 Estimated GFR (Non- 80.1 BUN/Creatinine Ratio 22.7 10-20 Random Glucose 96 70-99 mg/dl Calcium Level 8.4 8.5-10.1 mg/dl
--- NOTE | 2017-02-19 14:04 | Discharge Instructions ---
Discharge Instructions Date of Service Feb 19, 2017. Admission Reason for Admission: Chest Pain Discharge Discharge Diagnosis / Problem: 1. Dizziness secondary to orthostatic hypotension Discharge Goals Goal(s): Decrease discomfort, Improve function Activity Recommendations Activity Limitations: per Instructions/Follow-up section (as tolerated prior to admission) . Instructions / Follow-Up Instructions / Follow-Up No changes in medications FOLLOW UP 1. Follow up with Dr Ramirez 02/23/17 at 12:40 PM Current Hospital Diet Patient's current hospital diet: AHA Diet (Heart Healthy) Discharge Diet Recommended Diet: AHA Diet (Heart Healthy), Low Sodium Diet (2gm Na) Pending Studies Studies pending at discharge: no Medical Emergencies . Who to Call and When: Medical Emergencies: If at any time you feel your situation is an emergency, please call 911 immediately. . Non-Emergent Contact Non-Emergency issues call your: Primary Care Provider . . "Provider Documentation" section prepared by Oriana Whitlock. . VTE Core Measure Inpt VTE Proph given/why not?: Enoxaparin (Lovenox)SQ
--- NOTE | 2017-02-19 14:10 | Discharge Summary ---
Discharge Summary Date of Service Feb 19, 2017. Discharge Summary Admission Date: Feb 18, 2017 at 00:03 Discharge Date: Feb 19, 2017 Discharge Disposition: Home with services Principal Diagnosis: 1. Dizziness secondary to orthostatic hypotension secondary to autonomic dysfunction with parkinsons 2. Chest tightness, acute VA ruled out Secondary Diagnoses/Problems: 1. Parkinsons disease 2. Alcohol use 3. Ambulatory dysfunction Procedures: Tele monitoring EKG- serial Troponin- serial Echocardiogram CXR CT head Venous duplex Orthostats- positive Consultations: Cardiology Pending Studies/Follow-Up: Instructions / Follow-Up Instructions / Follow-Up No changes in medications FOLLOW UP 1. Follow up with PCP in 1 week. We will call you for appt date/time Medication Reconciliation Continued Medications: Acetaminophen (Tylenol) 500 Mg Tab 500-1000 MG PO DIRECTED PRN for Pain, TAB Alendronate Sodium (Alendronate Sodium) 70 Mg Tab 1 TAB PO WK, #12 Aspirin (Aspirin Ec) 81 Mg Tab 81 MG PO QAM Carbidopa/Levodopa (Sinemet 25MG/100MG) Tab 1 TAB PO TID, TAB TAKES AM, NOON, HS. Doxazosin Mesylate (Doxazosin Mesylate) 1 Mg Tab 1 MG PO HS Hydrocodone/Acetaminophen 5MG/325MG ([place] 5MG/325MG) Tab 1 TABLET PO Q6H PRN for Pain, #12 TAB For Initial Treatment Naproxen (Naprosyn) 500 Mg Tab 500 MG PO BID PRN for Pain, TAB Polyethylene Glycol 3350 (Miralax) 1 Pow Pow 17 GM PO DAILY PRN for Constipation, #527 GM Selegiline HCl (Selegiline HCl) 5 Mg Tab 5 MG PO BIDM MORNING AND NOON WITH MEALS Admission Information HPI (per Admitting provider): HISTORY OF PRESENT ILLNESS: Medical history significant for Parkinson disease, hypertension, chronic diastolic dysfunction as per records, PVCs per records, past tobacco abuse. Recent confinement August 2014 for leg swelling, attributed to being very active. Yesterday morning, the patient noted dizziness described as lightheadedness, had chest tightness, of breath, no cough symptoms. At the Emergency Room, systolic blood pressure noted to be 180s, relieved with nitroglycerin. Patient ____ blood pressure at home, intake of NSAIDs for right lower extremity pain. Denies abdominal pain. 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 In evening, just couldnt get up and had some chest tightness and thus was brought to ER. No more dizziness or chest tightness today. No associated symptoms or neurological deficits. -D/D considered: Vasovagal, Posterior circulation stroke but lightheadedness more than vertigo with no associated neurological symptoms or signs, so less likely. -Orthostats- significantly positive . Explained about changing positions slowly , Tele - Atrial bigeminy -PT/OT ordered -Work up- CT scan head- no acute abnormalities CHEST TIGHTNESS - Resolved From hx , less likely to be cardiac etiology. Resolved and no more episodes since admission. Was not associated with any symptoms concerning for cardiac etiology -EKG- no acute ischemic changes, Troponin x 2 negative; Trop- atrial bigeminy -Cardiology consulted- No further intervention as likely chest tightness is non cardiac in etiology, Echo done- EF 55-60%, Gd I diastolic dysfunction, Normal wall motion HYPERTENSIVE URGENCY- Resolved BP 186/100s on presentation, now down to 110s- 90s -S/P IV Metoprolol 5 mg x 1 dose -Not on any medications at home. -Will avoid any antihypertensives as BP is already in 90s ELEVATED LIPASE No signs or symptoms of pancreatitis -Monitor ALCOHOL USE Daily 2-3 glasses of whiskey -Watch for withdrawal PARKINSONS DISEASE -Says gait has not been an issue- same as baseline, was able to ambulate and go up and down the stairs. -Continue with Sinemet, Selegiline -PT/OT ordered DVT PRECAUTIONS Lovenox SQ FULL CODE DISPOSITION PT/OT evaluated- near his baseline Eager to be discharged Ok to discharge home with [facility] today. Family does have care givers at home The patient's son requesting updates from providers, Mr. Erich Bro [phone]. Total time spent on discharge = 28 minutes This includes examination of the patient, discharge planning, medication reconciliation, and communication with other providers. Discharge Instructions Discharge Goals Goal(s): Decrease discomfort, Improve function Activity Recommendations Activity Limitations: per Instructions/Follow-up section (as tolerated prior to admission) . Instructions / Follow-Up Instructions / Follow-Up No changes in medications FOLLOW UP 1. Follow up with PCP in 1 week. We will call you for appt date/time Current Hospital Diet Patient's current hospital diet: AHA Diet (Heart Healthy) Discharge Diet Recommended Diet: AHA Diet (Heart Healthy), Low Sodium Diet (2gm Na) Pending Studies Studies pending at discharge: no Medical Emergencies . Who to Call and When: Medical Emergencies: If at any time you feel your situation is an emergency, please call 911 immediately. . Non-Emergent Contact Non-Emergency issues call your: Primary Care Provider . . "Provider Documentation" section prepared by Oriana Whitlock. . VTE Core Measure Inpt VTE Proph given/why not?: Enoxaparin (Lovenox)SQ
[2017-02-19 14:27] VITALS: BP 101/63; PULSE 41; TEMP 36.3; O2SAT 96
[2017-02-20] MEDS ORDERED: GABAPENTIN 600 MG TAB PO SCH (10:00)
[2017-02-21] MEDS ORDERED: GABAPENTIN 600 MG TAB PO SCH (22:00)
[2017-07-18] MEDS ORDERED: TPRSR25 PO (17:13)
[2017-07-18] MEDS ORDERED: ELAS-2208 (17:24)
== END 2017-02-19 15:23 | disposition home health service (06) ==
LOC: EDBD 20:01 → C.EDC 20:02 → C.MED 02-18 00:03 → ENRESERV 02-18 01:19
PROVIDERS: ADMIT Internal Medicine; ATTEND Internal Medicine
DX: R42 Dizziness and giddiness (principal); I95.1 Orthostatic hypotension; G20 Parkinson's disease; R07.89 Other chest pain; Z72.89 Other problems related to lifestyle; R26.89 Other abnormalities of gait and mobility; Z87.891 Personal history of nicotine dependence; Z96.659 Presence of unspecified artificial knee joint; Z88.2 Allergy status to sulfonamides; Z90.89 Acquired absence of other organs; Z98.890 Other specified postprocedural states; Z98.49 Cataract extraction status, unspecified eye; Z80.9 Family history of malignant neoplasm, unspecified; Z83.3 Family history of diabetes mellitus; Z82.49 Family history of ischemic heart disease and other diseases of the circulatory system

== ENCOUNTER 2017-04-16 21:31 | Emergency (ER) | payer BC ==
[~2017-04-16] VITALS: Ht 172.7 cm; Wt 62.0 kg
[~2017-04-16 21:31] MED LIST changes: +FSM70 PO
[2017-04-16 21:34] VITALS: TEMP 36.7; Ht 172.7 cm; Wt 62.0 kg
--- NOTE | 2017-04-16 21:48 | EMERGENCY ROOM VISIT NOTE ---
History Report prepared by Laureano: Tristan Lowery Under the Supervision of: Dr. Nabil Jorgensen D.O. First contact with patient: 21:39 Chief Complaint: OTHER COMPLAINT Stated Complaint: BLUE HANDS,TREMOR, RAYNAUDS History of Present Illness The patient is an 87 year old male who presents to the Emergency Room with concerns over a "blue/purple" coloration to his hands bilaterally that occurred shortly prior to arrival. The patient is here in the emergency department with his , who is also currently a patient. The patient's son states that his hands became blue suddenly while waiting in the hospital room. He was also complaining of dizziness and global tremors. He is currently being evaluated for Raynaud's disease. Source of History: patient, family Onset: shotly [employer] Position: hand Quality: other (Blue color) Timing: other (Sudden onset) Note: Dizziness, tremors. Review of Systems See HPI for pertinent positives and negatives. A total of ten systems were reviewed and were otherwise negative. Past Medical & Surgical Medical Problems: (1) Anemia (2) Bronchitis (3) Chest pain (4) Closed head injury (5) Facial contusion (6) Facial laceration (7) Fall (8) Hyperlipidemia Nec/Nos (9) Hypertension Nos (10) Lower extremity edema (11) Parkinson disease (12) Thrombocytopenia (13) Weakness Surgical Problems: (1) S/P knee replacement Family History Cancer Diabetes mellitus Social History Smoking Status: Former Smoker Alcohol Use: occasionally Drug Use: none Marital Status: Occupation Status: retired Current/Historical Medications Scheduled Alendronate Sodium (Alendronate Sodium), 1 TAB PO WK Aspirin (Aspirin Ec), 81 MG PO QAM Carbidopa/Levodopa (Sinemet 25MG/100MG), 1 TAB PO TID Selegiline HCl (Selegiline HCl), 5 MG PO BIDM Scheduled PRN Acetaminophen (Tylenol), 500-1,000 MG PO DIRECTED PRN for Pain Naproxen (Naprosyn), 500 MG PO BID PRN for Pain Polyethylene Glycol 3350 (Miralax), 17 GM PO DAILY PRN for Constipation Allergies Coded Allergies: Sulfamethoxazole w/Trimethoprim (Verified Allergy, Severe, ANEMIA, THROMBOCYTOPENIA, 04/16/17) Clopidogrel (Verified Allergy, Unknown, UNKNOWN, 04/16/17) Allopurinol (Verified Adverse Reaction, Intermediate, DIARRHEA, 04/16/17) Physical Exam Vital Signs Date Time Temp Pulse Resp B/P (MAP) Pulse Ox O2 Delivery O2 Flow Rate FiO2 04/16/17 22:30 84 20 117/84 97 Room Air 04/16/17 22:06 89 20 145/116 97 Room Air 04/16/17 22:02 89 04/16/17 21:34 36.7 42 16 158/69 95 Room Air Physical Exam GENERAL: Awake, alert, well-appearing, in no distress HENT: Normocephalic, atraumatic. Oropharynx unremarkable. EYES: Normal conjunctiva. Sclera non-icteric. NECK: Supple. No nuchal rigidity. FROM. No JVD. RESPIRATORY: Clear to auscultation. CARDIAC: Regular rate, normal rhythm. Extremities warm and well perfused. Pulses equal. ABDOMEN: Soft, non-distended. No tenderness to palpation. No rebound or guarding. No masses. RECTAL: Deferred. MUSCULOSKELETAL: Chest examination reveals no tenderness. The back is symmetrical on inspection without obvious abnormality. There is no CVA tenderness to palpation. No joint edema. LOWER EXTREMITIES: Calves are equal size bilaterally and non-tender. No edema. Hands are erythematous, not cyanotic. The capillary refill is less than 2 seconds. There are bounding radial pulses bilaterally. NEURO: Normal sensorium. No sensory or motor deficits noted. Resting tremors. SKIN: No rash or jaundice noted. Medical Decision & Procedures ECG Indication: other (Raynaud's ) Rate (beats per minute): 88 Rhythm: normal sinus Findings: no acute ischemic change, no ectopy ED Course 2140: The patient was evaluated in room A2. A complete history and physical exam was performed. 5: I reevaluated the patient. His hands are warm and the hands have good blood blow. The patient is ready to be discharged home. 4: Patient's repeat blood pressure was 117/84 Much better on re-exam; hands are warm; suspect vasospasm no clot Medical Decision Differential Diagnosis includes; Raynaud's, vasospasm, anxiety. Medication Reconcilliation Current Medication List: was personally reviewed by me Blood Pressure Screening Patient's blood pressure: Normal blood pressure Impression Primary Impression: Cold hand without peripheral vascular disease Scribe Attestation The scribe's documentation has been prepared under my direction and personally reviewed by me in its entirety. I confirm that the note above accurately reflects all work, treatment, procedures, and medical decision making performed by me. Departure Information Dispostion Home / Self-Care Referrals Micheal Ramirez M.D. (PCP) Patient Instructions My [facility], Raynaud Disease
[2017-04-16 22:49] VITALS: BP 131/88; PULSE 85; O2SAT 97
== END 2017-04-16 22:51 | disposition home or self-care (01) ==
LOC: C.EDB 21:33 → C.EDA 22:51
DX: R20.9 Unspecified disturbances of skin sensation (principal); R42 Dizziness and giddiness; G25.2 Other specified forms of tremor; E78.5 Hyperlipidemia, unspecified; I10 Essential (primary) hypertension; G20 Parkinson's disease; Z79.82 Long term (current) use of aspirin; Z79.899 Other long term (current) drug therapy; Z87.891 Personal history of nicotine dependence; Z87.898 Personal history of other specified conditions; Z83.3 Family history of diabetes mellitus

== ENCOUNTER 2017-07-16 18:16 | Observation (INO) | payer BC ==
[~2017-07-16] VITALS: Ht 172.7 cm; Wt 63.9 kg
[~2017-07-16 18:16] MED LIST changes: -DOXA1TAB88 PO; -HYDR-5688 PO
[2017-07-16] MEDS ORDERED: SODIUM CHLORIDE 0.9% 1000ML 500 ML IV STA (18:31)
[2017-07-16] MEDS ORDERED: CHOL400T PO (18:47)
--- NOTE | 2017-07-16 18:47 | EMERGENCY ROOM VISIT NOTE ---
History Report prepared by Laureano: Manda Azevedo Under the Supervision of: Dr. Juan M Yousif M.D. First contact with patient: 18:25 Chief Complaint: DIZZY Stated Complaint: WOOZY,LIGHT HEADED,GENERAL MALAISE,LEAD IN STOMACH History of Present Illness The patient is a 87 year old male who presents to the Emergency Room with complaints of persistent dizziness that started 3 hours ago. He notes that the dizziness is diffuse. The patient states that he has been feeling off balance but has not fallen. He notes that he has Parkinson's and he loses balance from time to time but this feeling is different. The patient states that he had an irregular heartbeat 1 year ago where his doctor felt there was no need for intervention. He notes that his telephoto engineer noticed "a little extra something after every heart beat". The patient states that he has been experiencing shortness of breath for the last three hours. He notes that he has been having chest pain that he describes as a "lead feeling". The patient denies having a cough, congestion, or any urinary symptoms. He notes that he has been eating and drinking regularly. He denies any medication changes recently. Source of History: patient History Limited By: other (dizzy) Onset: 3 hours ago Position: other (global) Symptom Intensity: mild Quality: other (dizzy) Timing: other (persistent) Associated Symptoms: + chest pain, + SOB, No headache, No cough, No urinary symptoms Review of Systems See HPI for pertinent positives & negatives. A total of 10 systems reviewed and were otherwise negative. Past Medical & Surgical Medical Problems: (1) Anemia (2) Bronchitis (3) Chest pain (4) Closed head injury (5) Facial contusion (6) Facial laceration (7) Fall (8) Hyperlipidemia Nec/Nos (9) Hypertension Nos (10) Lower extremity edema (11) Parkinson disease (12) Thrombocytopenia (13) Weakness Surgical Problems: (1) S/P knee replacement Family History Cancer Diabetes mellitus Social History Smoking Status: Former Smoker Alcohol Use: occasionally Drug Use: none Marital Status: Occupation Status: retired Current/Historical Medications Scheduled Alendronate Sodium (Alendronate Sodium), 1 TAB PO WK Aspirin (Aspirin Ec), 81 MG PO QAM Carbidopa/Levodopa (Sinemet 25MG/100MG), 1 TAB PO TID Cholecalciferol (Vitamin D), 400 UNITS PO QAM Selegiline HCl (Selegiline HCl), 5 MG PO BIDM Scheduled PRN Acetaminophen (Tylenol), 500-1,000 MG PO DIRECTED PRN for Pain Naproxen (Naprosyn), 500 MG PO BID PRN for Pain Polyethylene Glycol 3350 (Miralax), 17 GM PO DAILY PRN for Constipation Allergies Coded Allergies: Sulfamethoxazole w/Trimethoprim (Verified Allergy, Severe, ANEMIA, THROMBOCYTOPENIA, 07/16/17) Clopidogrel (Verified Allergy, Unknown, UNKNOWN, 07/16/17) Allopurinol (Verified Adverse Reaction, Intermediate, DIARRHEA, 07/16/17) Physical Exam Vital Signs Date Time Temp Pulse Resp B/P (MAP) Pulse Ox O2 Delivery O2 Flow Rate FiO2 07/16/17 19:21 88 07/16/17 19:13 86 174/68 89 148/66 103 143/72 07/16/17 19:13 87 174/68 07/16/17 18:42 Room Air 07/16/17 18:19 36.4 47 20 163/107 100 Room Air Physical Exam GENERAL: Patient is in no acute distress. HEENT: No acute trauma, normocephalic atraumatic, mucous membranes moist, no nasal congestion, no scleral icterus. NECK: No stridor, no adenopathy, no meningismus, trachea is midline. LUNGS: Clear to auscultation bilaterally, no wheeze, no rhonchi, breath sounds equal. HEART: irregular rhythm with frequent extra beats. No murmurs. Normal rate. ABDOMEN: Soft, nontender, bowel sounds positive, no hernias, no peritonitis. EXTREMITIES: No cyanosis or edema, full range of motion of all the joints without pain or difficulty, no signs for acute trauma. NEUROLOGIC: Oriented x 3, no acute motor or sensory deficits, no focal weakness. No cerebellar deficits or pronator drift. No speech slur or facial droop. SKIN: No rash, no jaundice, no diaphoresis. Medical Decision & Procedures ER Provider Diagnostic Interpretation: Radiology results as stated below per my review and radiologist interpretation: HEAD WITHOUT CONTRAST (CT) CT DOSE: 623.48 mGy.cm HISTORY: Mental status change weakness TECHNIQUE: Multiaxial CT images of the head were performed without the use of intravenous contrast. A dose lowering technique was utilized adhering to the principles of ALARA. Comparison: 02/17/2017 Findings: The paranasal sinuses and mastoid air cells are clear. The calvarium and skull base are intact. The ventricles and sulci are within normal limits. There is no mass, hematoma, midline shift, or acute infarct. Impression: No acute intracranial abnormality. The above report was generated using voice recognition software. It may contain grammatical, syntax or spelling errors. Electronically signed by: Ridge Appiah M.D. 07/16/2017 6:56 PM Dictated Date/Time: 07/16/2017 6:54 PM CHEST ONE VIEW PORTABLE CLINICAL HISTORY: EVALUATE ALTERED MENTAL STATUS/WEAKNESS dyspnea COMPARISON STUDY: 02/17/2017 FINDINGS: Moderate emphysematous change. No acute infiltrate. Heart top limits of normal terms of size. Diaphragms smooth. IMPRESSION: Emphysematous change. No acute process. The above report was generated using voice recognition software. It may contain grammatical, syntax or spelling errors. Electronically signed by: Ridge Appiah M.D. 07/16/2017 7:10 PM Dictated Date/Time: 07/16/2017 7:09 PM Orthostatic vital signs were positive. Laboratory Results 07/16/17 18:31 Red Blood Count 4.26, Mean Corpuscular Volume 92.7, Mean Corpuscular Hemoglobin 30.5, Mean Corpuscular Hemoglobin Concent 32.9, Mean Platelet Volume 10.3, Neutrophils (%) (Auto) 61.5, Lymphocytes (%) (Auto) 26.0, Monocytes (%) (Auto) 10.6, Eosinophils (%) (Auto) 1.5, Basophils (%) (Auto) 0.3, Neutrophils # (Auto ) 4.63, Lymphocytes # (Auto) 1.96, Monocytes # (Auto) 0.80, Eosinophils # (Auto ) 0.11, Basophils # (Auto) 0.02 07/16/17 18:31 Test 07/16/17 18:31 White Blood Count 7.53 K/uL (4.8-10.8) Red Blood Count 4.26 M/uL (4.7-6.1) Hemoglobin 13.0 g/dL (14.0-18.0) Hematocrit 39.5 % (42-52) Mean Corpuscular Volume 92.7 fL (80-100) Mean Corpuscular Hemoglobin 30.5 pg (25-34) Mean Corpuscular Hemoglobin Concent 32.9 g/dl (32-36) Platelet Count 247 K/uL (130-400) Mean Platelet Volume 10.3 fL (7.4-10.4) Neutrophils (%) (Auto) 61.5 % Lymphocytes (%) (Auto) 26.0 % Monocytes (%) (Auto) 10.6 % Eosinophils (%) (Auto) 1.5 % Basophils (%) (Auto) 0.3 % Neutrophils # (Auto) 4.63 K/uL (1.4-6.5) Lymphocytes # (Auto) 1.96 K/uL (1.2-3.4) Monocytes # (Auto) 0.80 K/uL (0.11-0.59) Eosinophils # (Auto) 0.11 K/uL (0-0.5) Basophils # (Auto) 0.02 K/uL (0-0.2) RDW Standard Deviation 46.4 fL (36.4-46.3) RDW Coefficient of Variation 13.7 % (11.5-14.5) Immature Granulocyte % (Auto) 0.1 % Immature Granulocyte # (Auto) 0.01 K/uL (0.00-0.02) Prothrombin Time 10.1 SECONDS (9.0-12.0) Prothromb Time International Ratio 0.9 (0.9-1.1) Activated Partial Thromboplast Time 27.5 SECONDS (21.0-31.0) Partial Thromboplastin Ratio 1.1 Anion Gap 7.0 mmol/L (3-11) Est Creatinine Clear Calc Drug Dose 59.3 ml/min Estimated GFR () 92.8 Estimated GFR (Non- 80.1 BUN/Creatinine Ratio 27.2 (10-20) Calcium Level 8.6 mg/dl (8.5-10.1) Magnesium Level 2.3 mg/dl (1.8-2.4) Total Bilirubin 0.5 mg/dl (0.2-1) Aspartate Amino Transf (AST/SGOT) 12 U/L (15-37) Alanine Aminotransferase (ALT/SGPT) < 6 U/L (12-78) Alkaline Phosphatase 68 U/L (45-117) Total Creatine Kinase 42 U/L (39-308) Creatine Kinase MB 0.9 ng/ml (0.5-3.6) Creatine Kinase MB Ratio 2.1 (0-3.0) Troponin I < 0.015 ng/ml (0-0.045) Total Protein 7.6 gm/dl (6.4-8.2) Albumin 4.1 gm/dl (3.4-5.0) Globulin 3.5 gm/dl (2.5-4.0) Albumin/Globulin Ratio 1.2 (0.9-2) Thyroid Stimulating Hormone (TSH) 1.200 uIu/ml (0.300-4.500) Laboratory results reviewed by me. Medications Administered Medications (Trade) Dose Ordered Sig/Robbie Route Start Time Stop Time Status Last Admin Dose Admin Sodium Chloride 500 ml @ 999 mls/hr Q31M STAT IV 07/16/17 18:31 07/16/17 19:01 DC 07/16/17 19:12 999 MLS/HR Metoprolol Tartrate (Lopressor Iv) 2.5 mg NOW STAT IV 07/16/17 19:02 07/16/17 19:03 DC 07/16/17 19:13 2.5 MG ECG Indication: other (dizzy) Rate (beats per minute): 86 Rhythm: sinus rhythm Findings: PAC (frequent), no acute ischemic change, other (bigeminy pattern) ED Course 1824: The patient was evaluated in room A10. A complete history and physical exam was performed. 1830: Sodium Chloride 500 ml @ 999 mls/hr IV. 1853: I discussed the patient's case with [facility]. He considers giving the patient beta blockers. He recommends hospitalization. 1901: Lopressor IV 2.5 mg IV. 0: I discussed results and treatment plan with the patient. He verbalizes agreement and understanding. The patient will be evaluated for further management. 1927: Discussed the patient's case with Gregory [facility]. He agrees with the treatment plan. 1929: I updated the patient and let him know his treatment plan.The patient will be evaluated for further management by Dr. Rosario. 1931: Lopressor IV 2.5 mg IV. Medical Decision Differential diagnosis: Dysrhythmia, cardiac ischemia, NV, dehydration, electrolyte imbalance, stroke, infection There is no leukocytosis or concerning anemia. No significant electrolyte abnormality or kidney failure. There is no hepatitis or coagulopathy. Brain CT shows no acute bleed or mass effect. Chest x-ray shows some emphysema, no pneumonia or CHF. EKG shows a sinus rhythm with PACs in a pattern of bigeminy. No acute ischemia. Cardiac enzyme testing times one is not consistent with acute cardiac injury. The patient appears to be in a euthyroid state. Patient received IV saline, he was given a few doses of IV Lopressor to try to lessen the number of PACs. I did speak with cardiology. They did recommend Lopressor use. At this point, I do think a hospital stay is warranted. He has some chest discomfort, he is orthostatic, he is technically bradycardic in that the PAC does not produce a palpable pulse. His physiologic heart rate is really in the 40s. I think this is causing him to feel weak and fatigued. I spoke to the patient and case management. The on-call hospitalist was consulted. Medication Reconcilliation Current Medication List: was personally reviewed by me Blood Pressure Screening Patient's blood pressure: Elevated blood pressure Blood pressure disposition: Referred to PCP Consults Time Called: 1849 Consulting Physician: Dr. Burroughs. [facility] Returned Call: 1853 I discussed the patient's case with [facility]. He considers giving the patient beta blockers. He recommends hospitalization. Additional Consults: Time Called: 1923 Consulted Physician: Dr. Rosario Returned Call: 1927 Additional Comments: Discussed the patient's case with Gregory [facility]. He agrees with the treatment plan. Impression Primary Impression: Dizziness Additional Impressions: Weakness Bradycardia Scribe Attestation The scribe's documentation has been prepared under my direction and personally reviewed by me in its entirety. I confirm that the note above accurately reflects all work, treatment, procedures, and medical decision making performed by me. Departure Information Dispostion Being Evaluated By Hospitalist Referrals Micheal Ramirez M.D. (PCP) Patient Instructions My [facility] Problem Qualifiers
[2017-07-16 18:49] LABS: BASO % 0.3 %; BASO ABS # 0.02 K/uL (0-0.2); COMPLETE YES; EOS % 1.5 %; HEMATOCRIT 39.5 % (42-52); IG% 0.1 %; LYMPH ABS # 1.96 K/uL (1.2-3.4); MEAN CELL VOLUME 92.7 fL (80-100); MEAN CORPUSCULAR HEMOGLOBIN 30.5 pg (25-34); MEAN CORPUSCULAR HGB CONC 32.9 g/dl (32-36); MEAN PLATELET VOLUME 10.3 fL (7.4-10.4); MONO % 10.6 %; NEUT % 61.5 %; PLATELET COUNT 247 K/uL (130-400); RED BLOOD COUNT 4.26 M/uL (4.7-6.1); WHITE BLOOD COUNT 7.53 K/uL (4.8-10.8)
--- NOTE | 2017-07-16 18:57 | DIAGNOSTIC IMAGING REPORT ---
HEAD WITHOUT CONTRAST (CT) CT DOSE: 623.48 mGy.cm HISTORY: Mental status change weakness TECHNIQUE: Multiaxial CT images of the head were performed without the use of intravenous contrast. A dose lowering technique was utilized adhering to the principles of ALARA. Comparison: 02/17/2017 Findings: The paranasal sinuses and mastoid air cells are clear. The calvarium and skull base are intact. The ventricles and sulci are within normal limits. There is no mass, hematoma, midline shift, or acute infarct. Impression: No acute intracranial abnormality. The above report was generated using voice recognition software. It may contain grammatical, syntax or spelling errors. Electronically signed by: Ridge Appiah M.D. 07/16/2017 6:56 PM Dictated Date/Time: 07/16/2017 6:54 PM
[2017-07-16 18:59] LABS: INR 0.9 (0.9-1.1); PARTIAL THROMBOPLASTIN RATIO 1.1; PROTHROMBIN TIME (PATIENT) 10.1 SECONDS (9.0-12.0)
[2017-07-16] MEDS ORDERED: METOPROLOL TARTRATE 1 MG/ML VIAL IV STA ×2 (19:02→19:32)
[2017-07-16 19:08] LABS: ALT/SGPT < 6 U/L (12-78); AST/SGOT 12 U/L (15-37); BLOOD UREA NITROGEN 22 mg/dl (7-18); BUN/CREATININE RATIO 27.2 (10-20); CALCIUM 8.6 mg/dl (8.5-10.1); CARBON DIOXIDE 29 mmol/L (21-32); CHLORIDE 103 mmol/L (98-107); CREATININE 0.82 mg/dl (0.60-1.40); GLUCOSE 93 mg/dl (70-99); MAGNESIUM 2.3 mg/dl (1.8-2.4); POTASSIUM 4.1 mmol/L (3.5-5.1); SODIUM 139 mmol/L (136-145)
--- NOTE | 2017-07-16 19:11 | DIAGNOSTIC IMAGING REPORT ---
CHEST ONE VIEW PORTABLE CLINICAL HISTORY: EVALUATE ALTERED MENTAL STATUS/WEAKNESS dyspnea COMPARISON STUDY: 02/17/2017 FINDINGS: Moderate emphysematous change. No acute infiltrate. Heart top limits of normal terms of size. Diaphragms smooth. IMPRESSION: Emphysematous change. No acute process. The above report was generated using voice recognition software. It may contain grammatical, syntax or spelling errors. Electronically signed by: Ridge Appiah M.D. 07/16/2017 7:10 PM Dictated Date/Time: 07/16/2017 7:09 PM
[2017-07-16 19:19] LABS: ALB/GLOB RATIO 1.2 (0.9-2); ALKALINE PHOSPHATASE 68 U/L (45-117); CKMB/CK RATIO 2.1 (0-3.0)
[2017-07-16] MEDS ORDERED: IV FLUIDS COMPLETED PRN (20:00)
[2017-07-16] MEDS ORDERED: MULTI-VITAMIN INFUSION INJ 10 ML, THIAMINE HCL INJ 100 MG, FoLIC ACID INJ 1 MG in SODIU... IV ONE (20:15)
[2017-07-16] MEDS ORDERED: POLYETHYLENE (MIRALAX) 17 GM PACK PO ONE (20:18)
[2017-07-16] MEDS ORDERED: DOCUSATE SODIUM 100 MG CAP PO ONE (20:18)
[2017-07-16] MEDS ORDERED: NITROGLYCERIN 0.4 MG SL PER TAB CHARGE SL PRN (20:30)
[2017-07-16] MEDS ORDERED: PROMETHAZINE HCL INJ 12.5 MG in SODIUM CHLORIDE 0.9% 50ML 50 ML IV PRN (20:30)
[2017-07-16] MEDS ORDERED: GABAPENTIN 600 MG TAB PO SCH (20:30)
[2017-07-16] MEDS ORDERED: ACETAMINOPHEN 325 MG TAB PO PRN (20:30)
[2017-07-16] MEDS ORDERED: LORAZEPAM 2 MG/ML 1 ML VIAL IV PRN (20:30)
[2017-07-16] MEDS ORDERED: ATROPINE SO4 1 MG/ML 1ML VIAL IV PRN (20:30)
[2017-07-16] MEDS ORDERED: POLYETHYLENE (MIRALAX) 17 GM PACK PO PRN (20:30)
[2017-07-16] MEDS ORDERED: TRAMADOL HCL 50 MG TAB PO PRN (20:30)
[2017-07-16] MEDS ORDERED: OXYCODONE/ACETAMINOPHEN 5-325 TAB PO PRN (20:45)
[2017-07-16] MEDS: ENOXAPARIN 40 MG/0.4 ML SYR SC SCH (21:21)
[2017-07-16] MEDS: CARBIDOPA/LEVODOPA 25/100MG TAB PO SCH (21:21)
[2017-07-16] MEDS ORDERED: GABAPENTIN 1200MG LOADING DOSE PO SCH (21:30)
--- NOTE | 2017-07-16 21:54 | HISTORY & PHYSICAL EXAMINATION ---
DATE OF ADMISSION: 07/16/2017 PRIMARY CARE PHYSICIAN: Dr. Ramirez. CHIEF COMPLAINT: Dizziness. HISTORY OF PRESENT ILLNESS: History obtained from patient and records. Medical history significant for chronic diastolic dysfunction as per records, hypertension, currently not on meds, orthostatic hypotension, Parkinson's disease, chronic anemia (baseline hemoglobin 12), alcohol abuse as per records, past tobacco abuse. Recent confinement February 2017 for chest pain, dizziness attributed to orthostatic hypotension from Parkinson's dse. A 2D echo at that time showed EF of 60%, grade 1 diastolic dysfunction. Patient had a followup with PCP following discharge. Patient noted to be orthostatic in the clinic 02/23/2017. Bradycardic episodes noted in the office as well. Doxazosin stopped. Outpatient Holter monitor did not show any significant bradycardia; frequent symptomatic PACs noted. Patient referred to [facility]. Patient seen last 03/07/2017. As per note, patient noted to be bradycardic during the visit - pulse rate of 44. As per EPS note, the patient having frequent APCs sometimes a bigeminal pattern w/c can be misinterpreted as bradycardia. No indication for pacemaker during visit. Few hours ago, patient was watching television when he developed dizziness described as lightheadedness when he got up. No chest pain, no shortness of breath, no abdominal pain, kind of constipated. At the Emergency Room, initially cardiac rate was noted to be in the 40s, later patient noted to be orthostatic. Patient given IV Lopressor as per Cardiology recommendation for PACs as per ER M.D. MEDICAL HISTORY: As above. SURGERIES: He has had knee surgery, prostate biopsy, tonsillectomy, cataract surgery, removal of pilonidal cyst. HOME MEDICATIONS: Include, Carbidopa, selegiline, alendronate, aspirin. ALLERGIES: ALLOPURINOL, PLAVIX. FAMILY HISTORY: There is a family history of lung cancer, Parkinson's disease, high blood pressure. PERSONAL AND SOCIAL HISTORY: Past tobacco use. 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 Daily alcohol intake. REVIEW OF SYSTEMS: As per HPI, all other ROS negative. PHYSICAL EXAMINATION: VITAL SIGNS: Blood pressure noted to be 163/107 later 148/60, pulse rate 47, later 86, RR 20 T37, sats 100 on room air. GENERAL: Noted to be comfortable, no respiratory distress. Looks younger for stated age. SKIN: Pallor. Warm. HEENT: Pale palpebral conjunctivae. No ptosis. Dry buccal mucosa. NECK: Supple, no JVD, no tenderness. CHEST: Clear to auscultation. No tenderness. CARDIOVASCULAR: Regular rate and rhythm. Palpable lower extremity pulses. ABDOMEN: Soft, nontender. EXTREMITIES: No edema. No gross deformities. No tenderness. NEUROLOGIC: Coherent, intentional tremors of the hands. Gait and stance not assessed. LABORATORY DATA: Hemoglobin was noted to be 13, hematocrit 39.1, white cell 7.5, platelets 247. Sodium 139, potassium 4.1, chloride 103, CO2 of 29, BUN 22, creatinine 1.82, glucose 92. trop 0 CT head, no acute pathology. Chest x-ray: COPD. EKG as per my interpretation, rate 85, normal sinus rhythm, PACs. ASSESSMENT: 1. Dizziness likely from recurrent orthostasis (hx autonomic dysfunction secondary to Parkinson's disease, home Selegiline possibly contributory) ro symptomatic bradycardia versus pseudo-bradycardia (PACs, occ bigeminy perceived as bradycardia as per outpatient EPS note) 2. Hypertension, slightly elevated not on meds due to recurrent orthostasis 3. History of diastolic dysfunction. euvolemic to dry 4. Chronic anemia, Hg at baseline 5. alcohol abuse as per records 6. past tobacco abuse. 7. Constipation PLAN: Observation PCU. Would hold off on additional beta julia given propensity for bradycardia/ orthostasis until patient seen by Cardiology in a.m. May need PPM placement if symptoms coincide with bradycardic episodes. DT precautions. Laxative Rx PT, OT eval. DVT prophylaxis with Lovenox subQ. Full code. MTDD
[2017-07-16 22:23] VITALS: BP 150/72; PULSE 41; TEMP 36.5; O2SAT 100; Ht 172.7 cm; Wt 63.9 kg
[2017-07-17] VITALS (7 sets, daily range): BP systolic 101–168; BP diastolic 52–82; PULSE 40–106; TEMP 36.4–36.9; O2SAT 96–99
[2017-07-17 02:45] LABS: URINE APPEARANCE CLEAR (CLEAR); URINE BILIRUBIN NEG (NEG); URINE COLOR YELLOW; URINE NITRITE NEG (NEG); URINE SPECIFIC GRAVITY 1.023 (1.000-1.030); UROBILINOGEN NEG (NEG); ZZUR CULT IF INDIC CLEAN CATCH NO
[2017-07-17 02:52] LABS: MANUAL MICROSCOPIC REQUIRED? NO; REVIEW REQ? NO
[2017-07-17] MEDS ORDERED: GABAPENTIN 600MG Q6H DOSE PO SCH (06:00)
[2017-07-17 07:54] LABS: BASO % 0.4 %; BASO ABS # 0.02 K/uL (0-0.2); COMPLETE YES; HEMATOCRIT 34.3 % (42-52); IG% 0.2 %; LYMPH % 32.8 %; LYMPH ABS # 1.64 K/uL (1.2-3.4); MEAN CELL VOLUME 92.2 fL (80-100); MEAN CORPUSCULAR HEMOGLOBIN 29.8 pg (25-34); MEAN CORPUSCULAR HGB CONC 32.4 g/dl (32-36); MEAN PLATELET VOLUME 10.5 fL (7.4-10.4); NEUT % 52.6 %; PLATELET COUNT 218 K/uL (130-400); RED BLOOD COUNT 3.72 M/uL (4.7-6.1)
[2017-07-17] MEDS: CARBIDOPA/LEVODOPA 25/100MG TAB PO SCH ×3 (08:32→20:13)
[2017-07-17] MEDS: THIAMINE HCL 100 MG TAB PO SCH (08:32)
[2017-07-17] MEDS: MULTIVITAMIN TAB PO SCH (08:33)
[2017-07-17] MEDS: SELEGILINE HCL 5 MG CAP PO SCH ×2 (08:33→17:00)
[2017-07-17] MEDS: ASPIRIN 81 MG ECTAB PO SCH (08:34)
[2017-07-17] MEDS: DOCUSATE SODIUM 100 MG CAP PO SCH (08:34)
--- NOTE | 2017-07-17 10:42 | Cardiology Consultation ---
Cardiology Consultation Date of Consultation: Jul 17, 2017 Requesting Physician: Abraham Attending Check Embosser: Heike (Ridge Perry PA-C) History of Present Illness Mr. Bro is a very pleasant 87 year old male who is being seen at the request of Dr. Rosario. Reason for cardiology consultation is dizziness. Mr. Bro notes developing dizziness while sitting in a chair watching television a few hours prior to presentation to the [facility]. Symptoms occurred while sitting, at rest, and seemed to be aggravated by positional change. He denies the sensation of spinning. Denies nausea, vomiting, or recent issues with diarrhea (currently constipated). Denies recent illnesses. Denies recent medication changes. Denies chest pain, tachypalpitations, new or worsening dyspnea, cough, orthopnea, PND, or peripheral edema. EKG on presentation, dated and timed 16-JUL-2017 @ 18:32:15, revealed sinus rhythm with premature atrial complexes. When compared to the EKG from 16-APR-2017 @ 21:45 there were no significant changes. He was noted to be orthostatic. Head CT showed no acute intracranial abnormality as per interpretation radiologist. Chest x-ray showed emphysematous change but no acute process. Patient recently admitted to [facility] in February 2017 with chest pain and dizziness attributed to orthostatic hypotension from Parkinson's disease. Echocardiography was obtained and is summarized below. Post discharge he was again noted to be orthostatic for which doxazosin was discontinued. He was also noted to be bradycardic for which he underwent 24-hour holter monitoring prior to Electrophysiology consultation. The patient was noted to have frequent PAC's sometimes in a pattern of bigeminy. No significant bradycardia observed. No indication for permanent pacemaker implantation noted. This morning the patient's dizziness, after administration of IVF's and two doses of 2.5 mg IV lopressor, his dizziness has improved. (Ridge Perry PA-C) Past Medical/Surgical History Problem List: Past Medical and Surgical History: Parkinson's disease Orthostatic hypotension Hypertension Chart history of diastolic dysfunction Dyslipidemia Obstructive sleep apnea Stage III chronic kidney disease History of pancytopenia for which she previously followed with hematology Remote history of tobacco abuse Chronic alcohol use. Gout Psoriasis Osteoarthritis Right knee arthroplasty 2014 Tonsillectomy and adenoidectomy Pilonidal cyst surgery Prostate biopsy Cataract surgery (Ridge Perry PA-C) Family History Family History: Mother at 63 with lung carcinoma. Father at 83 with Parkinson's disease. Brother with hypertension. (Ridge Perry PA-C) Cancer Diabetes mellitus (Patrick Burroughs DO) Social History Social History: Reformed smoker, quit in 1963. He did smoke less than 1 ppd from the age of 17 to 34. No smokeless tobacco use. Alcohol: 3 drinks per day. Illegal drug use: Denies. to [place]. Two grown children. Retired [employer] after working his way up to [employer]. (Ridge Perry PA-C) Review Of Systems General: Denies weight change. Denies fever or chills. HEENT: Prior head trauma. No headache Cardiovascular: Denies chest pain or chest discomfort. Chronic stable dyspnea on exertion. Denies palpitations. No orthopnea or PND. Pulmonary: See above. No cough. No hemoptysis. No sputum. Gastrointestinal: No nausea, vomiting, or diarrhea. + Constipation. Skin: Denies rash. Musculoskeletal: See above. Neurological: Denies history of TIA, CVA, seizure disorder. Complete review of systems is as stated above, negative, or noncontributory. (Rideg Perry PA-C) Allergies Coded Allergies: Sulfamethoxazole w/Trimethoprim (Verified Allergy, Severe, ANEMIA, THROMBOCYTOPENIA, 07/16/17) Clopidogrel (Verified Allergy, Unknown, UNKNOWN, 07/16/17) Allopurinol (Verified Adverse Reaction, Intermediate, DIARRHEA, 07/16/17) Medications Reported Home Medications Medications Dose Route/Sig Max Daily Dose Days Date Category Dose Instructions Vitamin D (Cholecalciferol) 400 Unit Tab 400 Units PO QAM 07/16/17 Reported Alendronate Sodium 70 Mg Tab 1 Tab PO WK 02/17/17 Reported TAKES ON SUNDAYS Miralax (Polyethylene Glycol 3350) 1 Pow Pow 17 Gm PO DAILY PRN 01/14/17 Reported Tylenol (Acetaminophen) 500 Mg Tab 500-1,000 Mg PO DIRECTED PRN 01/14/17 Reported Naprosyn (Naproxen) 500 Mg Tab 500 Mg PO BID PRN 01/14/17 Reported Sinemet 25MG/100MG (Carbidopa/Levodopa) Tab 1 Tab PO TID 01/14/17 Reported TAKES AM, NOON, HS. Aspirin Ec (Aspirin) 81 Mg Tab 81 Mg PO QAM 01/14/17 Reported Selegiline HCl 5 Mg Tab 5 Mg PO BIDM 04/07/14 Reported MORNING AND NOON WITH MEALS (Ridge Perry PA-C) Physical Exam Vital Signs (Last 8hrs): Last 8 Hrs Date Time Temp Pulse Resp B/P (MAP) Pulse Ox O2 Delivery O2 Flow Rate FiO2 07/17/17 09:16 Room Air 07/17/17 07:17 36.5 80 20 124/55 (78) 96 Room Air 07/17/17 04:00 Room Air General Appearance: Alert and Oriented x3. NAD. Head: Normocephalic Atraumatic. Eyes: PER. EOMI. Conjunctiva and sclera clear Neck: Supple. No carotid bruits. No JVD. Respiratory: Diminished but clear to auscultation bilaterally. No w/r/r. Cardiovascular: Regular with ectopy in a pattern of bigeminy. Heart rates in the 80's. Soft apical systolic murmur. No diastolic murmur. No rub. Abdomen: +BS. No abdominal bruits. Soft. Nontender. Extremities: Mild edema. No clubbing. No cyanosis. Distal pulses 1/4 bilaterally. Neuro: Typical Parkinson's features. Psychiatric: Normal affect. (Ridge Perry PA-C) Data Last 24 Hours Test 07/16/17 18:31 07/16/17 21:16 07/17/17 02:34 07/17/17 06:43 White Blood Count 7.53 K/uL 5.00 K/uL Red Blood Count 4.26 M/uL 3.72 M/uL Hemoglobin 13.0 g/dL 11.1 g/dL Hematocrit 39.5 % 34.3 % Mean Corpuscular Volume 92.7 fL 92.2 fL Mean Corpuscular Hemoglobin 30.5 pg 29.8 pg Mean Corpuscular Hemoglobin Concent 32.9 g/dl 32.4 g/dl Platelet Count 247 K/uL 218 K/uL Mean Platelet Volume 10.3 fL 10.5 fL Neutrophils (%) (Auto) 61.5 % 52.6 % Lymphocytes (%) (Auto) 26.0 % 32.8 % Monocytes (%) (Auto) 10.6 % 12.0 % Eosinophils (%) (Auto) 1.5 % 2.0 % Basophils (%) (Auto) 0.3 % 0.4 % Neutrophils # (Auto) 4.63 K/uL 2.63 K/uL Lymphocytes # (Auto) 1.96 K/uL 1.64 K/uL Monocytes # (Auto) 0.80 K/uL 0.60 K/uL Eosinophils # (Auto) 0.11 K/uL 0.10 K/uL Basophils # (Auto) 0.02 K/uL 0.02 K/uL RDW Standard Deviation 46.4 fL 46.3 fL RDW Coefficient of Variation 13.7 % 13.7 % Immature Granulocyte % (Auto) 0.1 % 0.2 % Immature Granulocyte # (Auto) 0.01 K/uL 0.01 K/uL Prothrombin Time 10.1 SECONDS Prothromb Time International Ratio 0.9 Activated Partial Thromboplast Time 27.5 SECONDS Partial Thromboplastin Ratio 1.1 Sodium Level 139 mmol/L Potassium Level 4.1 mmol/L Chloride Level 103 mmol/L Carbon Dioxide Level 29 mmol/L Anion Gap 7.0 mmol/L Blood Urea Nitrogen 22 mg/dl Creatinine 0.82 mg/dl Est Creatinine Clear Calc Drug Dose 59.3 ml/min Estimated GFR () 92.8 Estimated GFR (Non- 80.1 BUN/Creatinine Ratio 27.2 Random Glucose 93 mg/dl Calcium Level 8.6 mg/dl Magnesium Level 2.3 mg/dl Total Bilirubin 0.5 mg/dl Aspartate Amino Transf (AST/SGOT) 12 U/L Alanine Aminotransferase (ALT/SGPT) < 6 U/L Alkaline Phosphatase 68 U/L Total Creatine Kinase 42 U/L Creatine Kinase MB 0.9 ng/ml Creatine Kinase MB Ratio 2.1 Troponin I < 0.015 ng/ml Total Protein 7.6 gm/dl Albumin 4.1 gm/dl Globulin 3.5 gm/dl Albumin/Globulin Ratio 1.2 Lipase 363 U/L Thyroid Stimulating Hormone (TSH) 1.200 uIu/ml Ethyl Alcohol mg/dL < 3.0 mg/dl Urine Color YELLOW Urine Appearance CLEAR Urine pH 7.0 Urine Specific [place] 1.023 Urine Protein NEG Urine Glucose (UA) NEG Urine Ketones NEG Urine Occult Blood NEG Urine Nitrite NEG Urine Bilirubin NEG Urine Urobilinogen NEG Urine Leukocyte Esterase NEG December 2014 Holter Monitor: Sinus with an average heart rate of 80 bpm. PACs - very frequent isolated complexes (40,999). Frequent atrial bigeminy. Rare 3-5 beat salvos of atrial tachycardia. PVCs - one isolated complex. One 4-beat cynthia of nonsustained ventricular tachycardia. Symptoms - No symptoms reported. No diary submitted. February 2017 Holter Monitor: Sinus rhythm with an average heart rate of 81 bpm. Max. Heart Rate: 116 bpm. Min. Heart Rate: 62 bpm. PACs - very frequent, including isolated PACs and atrial bigeminy (31,066). There was a 5 beat cynthia of supraventricular tachycardia with peak rate of 138 beats per minute. PVCs - rare, including isolated PVCs ,two runs of three beast in duration with rate of 125 bmp, and an 11 beat ventricular run at 87 bpm. Symptoms - none reported. No prolonged bradycardia, pauses , or AV block was detected. February 18, 2017 TTE Interpretation Summary ([facility], Dr. [place]): Sinus rhythm with frequent supraventricular ectopy was present during the echocardiogram. The left ventricular wall motion is normal. The LV Ejection Fraction = 55-60%. Aortic valve sclerosis moderate, without significant aortic valvular stenosis. There is mild mitral regurgitation. Grade I diastolic dysfunction, (abnormal relaxation pattern). Inpatient Telemetry this admission reveals sinus predominately in a pattern of bigeminy. No significant bradycardia. No significant pauses. No overt atrial fibrillation yet. EKG: See above. (Ridge Perry PA-C) Assessment & Plan Multifactorial dizziness, intravascular volume depletion, symptomatic orthostasis from Selegiline and/or Sinemet, Parkinson's disease Seemingly asymptomatic frequent premature atrial complexes predominately in a pattern of bigeminy. No overt atrial fibrillation thus far Hypertension Chart history of diastolic dysfunction. Chronic anemia Chronic alcohol use. Dyslipidemia RECOMMENDATIONS/PLAN: Add low dose Toprol XL, 12.5 mg/day, in an attempt to lessen atrial ectopy and reduce future possibility of atrial fibrillation No overt indication for permanent pacemaker implantation at this point. Conservative medical management of the presumed underlying coronary artery disease OK to feed this morning, as discussed with nursing. No invasive cardiac evaluations planned today. ? Adjustment in Parkinson's disease medications. (Ridge Perry PA-C) Cardiology attending physician: Patient seen and examined at the bedside. Notes worsening dizziness this a.m. Continues to be in sinus rhythm with atrial bigeminy on telemetry. No significant changes from a rhythm standpoint overnight. Orthostatic hypotension documented. Patient admits to moderate to high levels of alcohol intake on a daily basis. IV fluid infusing at this time. He received a dose of gabapentin as well which may have exacerbated his baseline dizziness. Denies orthopnea, PND, or lower extremity edema. No chest discomfort or unusual shortness of breath. Chronic gait unsteadiness unchanged. No falls or injuries reported. Son is present at bedside PE: VSS, +orthostatic BP. Gen: NAD, AAO x 3. Heart Regularly Irregular, no murmur. Lungs: Clear bilateral, No rales rhonchi or wheeze. Ext: no edema. A/P: Agree with above PAC history, physical exam, assessment and plan. Patient presents with orthostatic hypotension without evidence of symptomatic bradycardia. No indication for permanent pacemaker placement at this time. Agree with low-dose beta julia. Gabapentin will be discontinued. Continue IV hydration and monitor for signs of alcohol withdrawal. Consider addition of knee-high compression stockings. PT scheduled. We will continue to follow during hospitalization. Rodriguez Burroughs DO, FACC (Patrick Burroughs DO)
[2017-07-17] MEDS: METOPROLOL SUCC 25MG EXT REL TAB PO SCH (12:46)
--- NOTE | 2017-07-17 14:29 | DIAGNOSTIC IMAGING REPORT ---
SINUSES MIN 3 VIEWS ROUTINE CLINICAL HISTORY: f/u sinusitis sinusitis COMPARISON STUDY: FINDINGS: All sinuses are considered clear. Orbital margins are intact. There are no air-fluid levels. IMPRESSION: All major sinuses are clear. The above report was generated using voice recognition software. It may contain grammatical, syntax or spelling errors. Electronically signed by: Ridge Appiah M.D. 07/17/2017 2:27 PM Dictated Date/Time: 07/17/2017 2:25 PM
--- NOTE | 2017-07-17 15:42 | Neurology Consultation ---
Neurology Consultation Date of Consultation: Jul 17, 2017. Attending Physician: Yeimi Lopez DO Primary Care Physician: Micheal Ramirez M.D. Reason for Consultation: dizziness/hx parkinson's History of Present Illness Source: patient Nabil has a H chronic diastolic dysfunction, HTN, orthostatic hypotension, PD , chronic anemia, EtOH abuse. He was admitted in February of 2017 for CP, and dizziness attributed to orthostatic hypotension. TTE showed EF 60% diastolic dysfunctions. He was also orthostatic in clinic on 02/23/2017, and bradycardic. his doxazosin was stopped at that time. he wore an outpatient monitor with no significant bradycardia. When he was seen 03/07/2017 he was noted to have a pulse of 44. He presents to the hospital with dizziness. He states the feeling is not the same as he gets with his parkinson's it's more than dizziness but its hard for him to define. He had a 15 pound weight loss over this past year although he states he is eating well. currently he is not having the dizziness. denies falls, medication changes, N, V, CP, SOB, abdominal pain, weakness, numbness tingling one sided. Past Medical/Surgical History Medical Problems: (1) Bradycardia Status: Acute (2) Cold hand without peripheral vascular disease Status: Acute (3) Dizziness Status: Acute (4) Gait disturbance Status: Acute (5) Lumbar back pain Status: Acute (6) Substernal chest pain Status: Acute (7) Weakness Status: Acute Allergies Coded Allergies: Sulfamethoxazole w/Trimethoprim (Verified Allergy, Severe, ANEMIA, THROMBOCYTOPENIA, 07/16/17) Clopidogrel (Verified Allergy, Unknown, UNKNOWN, 07/16/17) Allopurinol (Verified Adverse Reaction, Intermediate, DIARRHEA, 07/16/17) Current Inpatient Medications Current Inpatient Medications Medications (Trade) Dose Ordered Sig/Robbie Route Start Time Stop Time Status Last Admin Dose Admin Miscellaneous (Iv Fluids Completed) 1 ea PRN PRN N/A 07/16/17 20:00 07/16/18 19:59 Enoxaparin Sodium (Lovenox Inj) 40 mg Q24H SC 07/16/17 21:00 08/15/17 20:59 07/16/17 21:21 40 MG Acetaminophen (Tylenol Tab) 650 mg Q4H PRN PO 07/16/17 20:30 08/15/17 20:29 Nitroglycerin (Nitrostat Tab) 0.4 mg UD PRN SL 07/16/17 20:30 08/15/17 20:29 Aspirin (Ecotrin Tab) 81 mg QAM PO 07/17/17 09:00 08/16/17 08:59 07/17/17 08:34 81 MG Carbidopa/Levodopa (Sinemet 25/ 100MG Tab) 1 tab TID PO 07/16/17 21:00 08/15/17 20:59 07/17/17 14:30 1 TAB Selegiline HCl (Eldepryl Cap) 5 mg BIDM PO 07/17/17 08:00 08/16/17 07:59 07/17/17 08:33 5 MG Docusate Sodium (coLACE CAP) 100 mg DAILY PO 07/17/17 09:00 08/16/17 08:59 07/17/17 08:34 100 MG Polyethylene (Miralax Powder Packet) 17 gm DAILY PRN PO 07/16/17 20:30 08/15/17 20:29 Atropine Sulfate (Atropine Sulfate 1MG/Ml Inj) 0.5 mg Q5M PRN IV 07/16/17 20:30 08/15/17 20:29 Promethazine HCl 12.5 mg/Sodium Chloride 50.5 ml @ 204 mls/hr Q6H PRN IV 07/16/17 20:30 08/15/17 20:29 Lorazepam (Ativan Inj) PRN Dosing -Active Protocol Q1H PRN IV 07/16/17 20:30 08/15/17 20:29 Thiamine HCl (Vitamin B-1 Tab) 100 mg QAM PO 07/17/17 09:00 08/16/17 08:59 07/17/17 08:32 100 MG Multivitamins (Multivitamin Tab) 1 tab QAM PO 07/17/17 09:00 08/16/17 08:59 07/17/17 08:33 1 TAB Folic Acid (Folvite Tab) 1 mg QAM PO 07/17/17 09:00 08/16/17 08:59 07/17/17 08:32 1 MG Oxycodone/ Acetaminophen (Percocet 5-325mg Tab) 1 tab Q6H PRN PO 07/16/17 20:45 07/30/17 20:44 Metoprolol Succinate (Toprol Xl Tab) 12.5 mg QAM PO 07/17/17 11:00 08/16/17 10:59 07/17/17 12:46 12.5 MG Physical Exam Vital Signs (Past 24 Hrs): Date Time Temp Pulse Resp B/P (MAP) Pulse Ox O2 Delivery O2 Flow Rate FiO2 07/17/17 15:09 36.4 81 18 101/52 (68) 99 Room Air 07/17/17 13:11 40 99 07/17/17 12:00 Room Air 07/17/17 10:50 58 18 136/62 (86) 99 66 128/58 (81) 07/17/17 09:16 Room Air 07/17/17 07:17 36.5 80 20 124/55 (78) 96 Room Air 07/17/17 04:00 Room Air 07/17/17 00:06 36.9 84 18 139/56 (83) 96 Room Air 07/17/17 00:00 Room Air 07/16/17 22:23 36.5 41 18 150/72 100 Room Air 07/16/17 20:21 78 18 155/68 100 Room Air 07/16/17 19:50 77 18 148/63 99 Room Air 07/16/17 19:49 79 148/63 07/16/17 19:21 88 07/16/17 19:13 86 174/68 89 148/66 103 143/72 07/16/17 19:13 87 174/68 07/16/17 18:42 Room Air 07/16/17 18:19 36.4 47 20 163/107 100 Room Air Physical Exam: Constitutional: appearance nourished, healthy and normal, mask facies Ears, Nose, Mouth and Throat: mucous membranes moist, no injection and skin normal, eyes normal Cardiovascular: normal S-1 and S-2 and regular rate and rhythm Respiratory: clear to auscultation (CTA) and no rales, rhonchi or wheeze Musculoskeletal: no peripheral edema and good distal pulses Skin: no stigmata of neurocutaneous disease noted and normal and intact Eyes: extraocular muscles intact (EOMI) and pupils equal, round and reactive to light (PERRL), decreased blink frequency NEUROLOGIC EXAMINATION: Mental status: Alert and interactive Oriented to full date and location[facility], phillip [place] pen, phone Oriented to person Speech fluent with no evidence of aphasia Cranial Nerves smile eye brow raise symmetric Reflexes: Deep tendon reflexes were symmetrical and graded 2/5. Plantar responses were flexor. Coordination: finger to nose with no bi pass, resting tremor L>R no cogwheeling Gait/Stance: Posture normal. stands with no assistance, slight off balance with standing. Motor: Negative for pronator drift of out stretched arms with eyes closed. Strength: biceps triceps hand teletype technician 5/5 bilaterally, hip flex 5/5 bilaterally Laboratory Results Past 24 Hours: 07/17/17 06:43 Red Blood Count 3.72, Mean Corpuscular Volume 92.2, Mean Corpuscular Hemoglobin 29.8, Mean Corpuscular Hemoglobin Concent 32.4, Mean Platelet Volume 10.5, Neutrophils (%) (Auto) 52.6, Lymphocytes (%) (Auto) 32.8, Monocytes (%) (Auto) 12.0, Eosinophils (%) (Auto) 2.0, Basophils (%) (Auto) 0.4, Neutrophils # (Auto ) 2.63, Lymphocytes # (Auto) 1.64, Monocytes # (Auto) 0.60, Eosinophils # (Auto ) 0.10, Basophils # (Auto) 0.02 07/16/17 18:31 Test 07/16/17 18:31 07/16/17 21:16 07/17/17 02:34 07/17/17 06:43 Prothrombin Time 10.1 SECONDS (9.0-12.0) Prothromb Time International Ratio 0.9 (0.9-1.1) Activated Partial Thromboplast Time 27.5 SECONDS (21.0-31.0) Partial Thromboplastin Ratio 1.1 Anion Gap 7.0 mmol/L (3-11) Est Creatinine Clear Calc Drug Dose 59.3 ml/min Estimated GFR () 92.8 Estimated GFR (Non- 80.1 BUN/Creatinine Ratio 27.2 (10-20) Calcium Level 8.6 mg/dl (8.5-10.1) Magnesium Level 2.3 mg/dl (1.8-2.4) Total Bilirubin 0.5 mg/dl (0.2-1) Aspartate Amino Transf (AST/SGOT) 12 U/L (15-37) Alanine Aminotransferase (ALT/SGPT) < 6 U/L (12-78) Alkaline Phosphatase 68 U/L (45-117) Total Creatine Kinase 42 U/L (39-308) Creatine Kinase MB 0.9 ng/ml (0.5-3.6) Creatine Kinase MB Ratio 2.1 (0-3.0) Troponin I < 0.015 ng/ml (0-0.045) Total Protein 7.6 gm/dl (6.4-8.2) Albumin 4.1 gm/dl (3.4-5.0) Globulin 3.5 gm/dl (2.5-4.0) Albumin/Globulin Ratio 1.2 (0.9-2) Lipase 363 U/L (73-393) Thyroid Stimulating Hormone (TSH) 1.200 uIu/ml (0.300-4.500) Ethyl Alcohol mg/dL < 3.0 mg/dl (0-3) Urine Color YELLOW Urine Appearance CLEAR (CLEAR) Urine pH 7.0 (4.5-7.5) Urine Specific [place] 1.023 (1.000-1.030) Urine Protein NEG (NEG) Urine Glucose (UA) NEG (NEG) Urine Ketones NEG (NEG) Urine Occult Blood NEG (NEG) Urine Nitrite NEG (NEG) Urine Bilirubin NEG (NEG) Urine Urobilinogen NEG (NEG) Urine Leukocyte Esterase NEG (NEG) White Blood Count 5.00 K/uL (4.8-10.8) Red Blood Count 3.72 M/uL (4.7-6.1) Hemoglobin 11.1 g/dL (14.0-18.0) Hematocrit 34.3 % (42-52) Mean Corpuscular Volume 92.2 fL (80-100) Mean Corpuscular Hemoglobin 29.8 pg (25-34) Mean Corpuscular Hemoglobin Concent 32.4 g/dl (32-36) Platelet Count 218 K/uL (130-400) Mean Platelet Volume 10.5 fL (7.4-10.4) Neutrophils (%) (Auto) 52.6 % Lymphocytes (%) (Auto) 32.8 % Monocytes (%) (Auto) 12.0 % Eosinophils (%) (Auto) 2.0 % Basophils (%) (Auto) 0.4 % Neutrophils # (Auto) 2.63 K/uL (1.4-6.5) Lymphocytes # (Auto) 1.64 K/uL (1.2-3.4) Monocytes # (Auto) 0.60 K/uL (0.11-0.59) Eosinophils # (Auto) 0.10 K/uL (0-0.5) Basophils # (Auto) 0.02 K/uL (0-0.2) RDW Standard Deviation 46.3 fL (36.4-46.3) RDW Coefficient of Variation 13.7 % (11.5-14.5) Immature Granulocyte % (Auto) 0.2 % Immature Granulocyte # (Auto) 0.01 K/uL (0.00-0.02) Test 07/17/17 10:45 Bedside Glucose 90 mg/dl (70-99) Imaging xray sinuses- All sinuses are considered clear. Orbital margins are intact. There are no air-fluid levels. CT head- No acute intracranial abnormality. Impression 87 year old male s/p dizziness and hx parkinson's disease. Plan 1. continue current Sinemet dosing 100/25 mg TID has been on for years 2. 15 pound unintentional weight loss will need to monitor for further weight loss 3. cardiology for evaluate and med changes 4. fall precautions 5. PT/OT for discharge needs 6. correct and metabolic issues 7. continue orthostatic blood pressure checks 8. would avoid narcotics 9. MRI brain with and without r/o embolic shower I have seen and discussed above patient with Dr Dontrell Martinez, neurology I have seen this man in the past and currently his parkinsons control seems stable The event yesterday that precipitated admission is very unclear historically and I would classify it a a protracted low grade confusional event for want of a better term An embolic shower or protracted supraventricular tachycardial could have produced a similar pattern douobt seizure and doubt orthostatic event as he was seated most of the time and symptoms did not apparently increase with standing. agree with the above plans will add an eeg but doubt we will see much Dontrell Martinez MD
--- NOTE | 2017-07-17 17:00 | Progress Note ---
Subjective Date of Service: Jul 17, 2017. Subjective Pt evaluation today including: conversation w/ patient, physical exam, lab review, review of studies, review of inpatient medication list Saw/examined the patient in room 280 He is in the room, seated, son is at bedside States he's been getting lightheaded - denies dizziness Denies chest pain/shortness of breath Problem List Medical Problems: (1) Bradycardia Status: Acute (2) Cold hand without peripheral vascular disease Status: Acute (3) Dizziness Status: Acute (4) Gait disturbance Status: Acute (5) Lumbar back pain Status: Acute (6) Substernal chest pain Status: Acute (7) Weakness Status: Acute Review of Systems Respiratory: No shortness of breath Cardiac: No chest pain Musculoskeletal: No joint pain Male : No dysuria, No urinary frequency Neurologic: + balance problems (lightheadedness), + problem reported (tremor, chronic), No memory loss, No paralysis Heme: No abnormal bleeding/bruising Medications Current Inpatient Medications Medications (Trade) Dose Ordered Sig/Robbie Route Start Time Stop Time Status Last Admin Dose Admin Miscellaneous (Iv Fluids Completed) 1 ea PRN PRN N/A 07/16/17 20:00 07/16/18 19:59 Enoxaparin Sodium (Lovenox Inj) 40 mg Q24H SC 07/16/17 21:00 08/15/17 20:59 07/16/17 21:21 40 MG Acetaminophen (Tylenol Tab) 650 mg Q4H PRN PO 07/16/17 20:30 08/15/17 20:29 Nitroglycerin (Nitrostat Tab) 0.4 mg UD PRN SL 07/16/17 20:30 08/15/17 20:29 Aspirin (Ecotrin Tab) 81 mg QAM PO 07/17/17 09:00 08/16/17 08:59 07/17/17 08:34 81 MG Carbidopa/Levodopa (Sinemet 25/ 100MG Tab) 1 tab TID PO 07/16/17 21:00 08/15/17 20:59 07/17/17 14:30 1 TAB Selegiline HCl (Eldepryl Cap) 5 mg BIDM PO 07/17/17 08:00 08/16/17 07:59 07/17/17 08:33 5 MG Docusate Sodium (coLACE CAP) 100 mg DAILY PO 07/17/17 09:00 08/16/17 08:59 07/17/17 08:34 100 MG Polyethylene (Miralax Powder Packet) 17 gm DAILY PRN PO 07/16/17 20:30 08/15/17 20:29 Atropine Sulfate (Atropine Sulfate 1MG/Ml Inj) 0.5 mg Q5M PRN IV 07/16/17 20:30 08/15/17 20:29 Promethazine HCl 12.5 mg/Sodium Chloride 50.5 ml @ 204 mls/hr Q6H PRN IV 07/16/17 20:30 08/15/17 20:29 Lorazepam (Ativan Inj) PRN Dosing -Active Protocol Q1H PRN IV 07/16/17 20:30 08/15/17 20:29 Thiamine HCl (Vitamin B-1 Tab) 100 mg QAM PO 07/17/17 09:00 08/16/17 08:59 07/17/17 08:32 100 MG Multivitamins (Multivitamin Tab) 1 tab QAM PO 07/17/17 09:00 08/16/17 08:59 07/17/17 08:33 1 TAB Folic Acid (Folvite Tab) 1 mg QAM PO 07/17/17 09:00 08/16/17 08:59 07/17/17 08:32 1 MG Oxycodone/ Acetaminophen (Percocet 5-325mg Tab) 1 tab Q6H PRN PO 07/16/17 20:45 07/30/17 20:44 Metoprolol Succinate (Toprol Xl Tab) 12.5 mg QAM PO 07/17/17 11:00 08/16/17 10:59 07/17/17 12:46 12.5 MG Objective Vital Signs Date Time Temp Pulse Resp B/P (MAP) Pulse Ox O2 Delivery O2 Flow Rate FiO2 07/17/17 15:09 36.4 81 18 101/52 (68) 99 Room Air 07/17/17 13:11 40 99 07/17/17 12:00 Room Air 07/17/17 10:50 58 18 136/62 (86) 99 66 128/58 (81) 07/17/17 09:16 Room Air 07/17/17 07:17 36.5 80 20 124/55 (78) 96 Room Air 07/17/17 04:00 Room Air 07/17/17 00:06 36.9 84 18 139/56 (83) 96 Room Air 07/17/17 00:00 Room Air 07/16/17 22:23 36.5 41 18 150/72 100 Room Air 07/16/17 20:21 78 18 155/68 100 Room Air 07/16/17 19:50 77 18 148/63 99 Room Air 07/16/17 19:49 79 148/63 07/16/17 19:21 88 07/16/17 19:13 86 174/68 89 148/66 103 143/72 07/16/17 19:13 87 174/68 07/16/17 18:42 Room Air 07/16/17 18:19 36.4 47 20 163/107 100 Room Air Physical Exam General Appearance: no apparent distress, + thin, + pertinent finding (ill appearing) Respiratory/Chest: no respiratory distress, no accessory muscle use Cardiovascular: regular rate, rhythm, no edema, no murmur Neurologic/Psychiatric: + pertinent finding (chronic resting tremor) Laboratory Results Last 24 Hours Test 07/16/17 18:31 07/16/17 21:16 07/17/17 02:34 07/17/17 06:43 White Blood Count 7.53 K/uL 5.00 K/uL Red Blood Count 4.26 M/uL 3.72 M/uL Hemoglobin 13.0 g/dL 11.1 g/dL Hematocrit 39.5 % 34.3 % Mean Corpuscular Volume 92.7 fL 92.2 fL Mean Corpuscular Hemoglobin 30.5 pg 29.8 pg Mean Corpuscular Hemoglobin Concent 32.9 g/dl 32.4 g/dl Platelet Count 247 K/uL 218 K/uL Mean Platelet Volume 10.3 fL 10.5 fL Neutrophils (%) (Auto) 61.5 % 52.6 % Lymphocytes (%) (Auto) 26.0 % 32.8 % Monocytes (%) (Auto) 10.6 % 12.0 % Eosinophils (%) (Auto) 1.5 % 2.0 % Basophils (%) (Auto) 0.3 % 0.4 % Neutrophils # (Auto) 4.63 K/uL 2.63 K/uL Lymphocytes # (Auto) 1.96 K/uL 1.64 K/uL Monocytes # (Auto) 0.80 K/uL 0.60 K/uL Eosinophils # (Auto) 0.11 K/uL 0.10 K/uL Basophils # (Auto) 0.02 K/uL 0.02 K/uL RDW Standard Deviation 46.4 fL 46.3 fL RDW Coefficient of Variation 13.7 % 13.7 % Immature Granulocyte % (Auto) 0.1 % 0.2 % Immature Granulocyte # (Auto) 0.01 K/uL 0.01 K/uL Prothrombin Time 10.1 SECONDS Prothromb Time International Ratio 0.9 Activated Partial Thromboplast Time 27.5 SECONDS Partial Thromboplastin Ratio 1.1 Sodium Level 139 mmol/L Potassium Level 4.1 mmol/L Chloride Level 103 mmol/L Carbon Dioxide Level 29 mmol/L Anion Gap 7.0 mmol/L Blood Urea Nitrogen 22 mg/dl Creatinine 0.82 mg/dl Est Creatinine Clear Calc Drug Dose 59.3 ml/min Estimated GFR () 92.8 Estimated GFR (Non- 80.1 BUN/Creatinine Ratio 27.2 Random Glucose 93 mg/dl Calcium Level 8.6 mg/dl Magnesium Level 2.3 mg/dl Total Bilirubin 0.5 mg/dl Aspartate Amino Transf (AST/SGOT) 12 U/L Alanine Aminotransferase (ALT/SGPT) < 6 U/L Alkaline Phosphatase 68 U/L Total Creatine Kinase 42 U/L Creatine Kinase MB 0.9 ng/ml Creatine Kinase MB Ratio 2.1 Troponin I < 0.015 ng/ml Total Protein 7.6 gm/dl Albumin 4.1 gm/dl Globulin 3.5 gm/dl Albumin/Globulin Ratio 1.2 Lipase 363 U/L Thyroid Stimulating Hormone (TSH) 1.200 uIu/ml Ethyl Alcohol mg/dL < 3.0 mg/dl Urine Color YELLOW Urine Appearance CLEAR Urine pH 7.0 Urine Specific [place] 1.023 Urine Protein NEG Urine Glucose (UA) NEG Urine Ketones NEG Urine Occult Blood NEG Urine Nitrite NEG Urine Bilirubin NEG Urine Urobilinogen NEG Urine Leukocyte Esterase NEG Test 07/17/17 10:45 Bedside Glucose 90 mg/dl Assessment and Plan This is an 87 year old male with a PMH of Parkinson's disease, chronic diastolic dysfunction, hx. of orthostatic hypotension, hx. of atrial bigeminy, HTN, possible hx. of alcohol abuse as per records - presents with dizziness/ lightheadedness Lightheadedness Presyncope secondary to Orthostatic Hypotension? possibly related to his Parkinson's vs. orthostatic hypotension checked sinus x-ray - no sinusitis PT/OT appreciate cardiology and neurology input b-julia started as per cardiology due to PACs; atrial bigeminy checking MRI - pending - as per neurology Parkinson's Disease continue current medications Hx. of EtOH abuse had discussion with patient and patient's son they state that there is no dependence on EtOH; he has stopped in the past with no withdrawal symptoms stopping gabapentin protocol HTN blood pressure stable, does not take any medications for blood pressure at home started on Toprol XL DVT ppx Lovenox FULL CODE
[2017-07-17] MEDS: ENOXAPARIN 40 MG/0.4 ML SYR SC SCH (20:13)
[2017-07-17] MEDS ORDERED: GABAPENTIN 600MG Q8H DOSE PO SCH (22:00)
[2017-07-18 04:23] VITALS: BP 132/65; PULSE 69; TEMP 36.6; O2SAT 97
[2017-07-18 06:41] LABS: BUN/CREATININE RATIO 23.5 (10-20); CALCIUM 8.4 mg/dl (8.5-10.1); CREATININE 0.96 mg/dl (0.60-1.40); POTASSIUM 3.9 mmol/L (3.5-5.1)
[2017-07-18 07:35] VITALS: BP_SYST 110; BP_SYST 111; BP_SYST 131; BP_DIAS 63; BP_DIAS 64; BP_DIAS 75; PULSE 43; PULSE 60; PULSE 93; TEMP 36.4; O2SAT 98
[2017-07-18] MEDS: SELEGILINE HCL 5 MG CAP PO SCH ×2 (09:06→17:08)
[2017-07-18] MEDS: CARBIDOPA/LEVODOPA 25/100MG TAB PO SCH ×2 (09:06→14:16)
[2017-07-18] MEDS: ASPIRIN 81 MG ECTAB PO SCH (09:06)
[2017-07-18] MEDS: DOCUSATE SODIUM 100 MG CAP PO SCH (09:06)
[2017-07-18] MEDS: MULTIVITAMIN TAB PO SCH (09:06)
[2017-07-18] MEDS: THIAMINE HCL 100 MG TAB PO SCH (09:07)
[2017-07-18] MEDS: METOPROLOL SUCC 25MG EXT REL TAB PO SCH (09:15)
--- NOTE | 2017-07-18 09:31 | Cardiology Follow-Up ---
Subjective General Date of Service: Jul 18, 2017. Chief Complaint: PAC's Pt evaluation today including: conversation w/ patient, physical exam, chart review, lab review, review of studies, review of inpatient medication list History of Present Illness Patient seen and examined. Dizziness resolved. Telemetry: Sinus with ongoing PAC's in a pattern of bigeminy. PVC's in singles. One 7 beat VPC run on 07/17/2017 at 17:16:01. Denies chest pain, palpitations, or dizziness. Allergies Coded Allergies: Sulfamethoxazole w/Trimethoprim (Verified Allergy, Severe, ANEMIA, THROMBOCYTOPENIA, 07/16/17) Clopidogrel (Verified Allergy, Unknown, UNKNOWN, 07/16/17) Allopurinol (Verified Adverse Reaction, Intermediate, DIARRHEA, 07/16/17) Social History Hx Tobacco Use In Past Year?: No Hx Alcohol Use - Type And Amou: Yes (scotch, few drinks a week) Hx Substance Use - Type And Am: No Problem List Medical Problems: (1) Bradycardia Status: Acute (2) Cold hand without peripheral vascular disease Status: Acute (3) Dizziness Status: Acute (4) Gait disturbance Status: Acute (5) Lumbar back pain Status: Acute (6) Substernal chest pain Status: Acute (7) Weakness Status: Acute Review of Systems Respiratory: No cough, No wheezing, No shortness of breath, No dyspnea on exertion, No dyspnea at rest, No hemoptysis Cardiac: No chest pain, No orthopnea, No PND, No edema, No claudication, No palpitations Physical Exam Vital Signs Last Vital Signs Documentation Date Time Temp Pulse Resp B/P (MAP) Pulse Ox O2 Delivery O2 Flow Rate FiO2 07/18/17 07:36 Room Air 07/18/17 07:35 36.4 43 20 131/75 (93) 98 60 110/64 (79) 93 111/63 (79) Physical Exam Constitutional: Level of Distress: NAD Psychiatric: Mental Status: active & alert Orientation: to time, to place, to person Memory: recent memory normal, remote memory normal Head: normocephalic, atraumatic Neck: pertinent finding (Normal JVP) Lungs: Respiratory effort: no dyspnea Auscultation: no wheezing, no rales/crackles, no rhonchi, deminished air movement Cardiovascular: Heart Auscultation: no rubs, pertinent finding (irregular with ectopy in a pattern of bigeminy) Peripheral Pulses: Radial Pulse: normal on the left, normal on the right Dorsalis Pedis Pulse: normal on the left, normal on the right Extremities: no cyanosis, no edema, no clubbing Assessment and Plan Assessment and Plan Dizziness, resolved. Intravascular volume depletion Symptomatic orthostatic hypotension complicated by resting/supine hypertension. Parkinson's disease Asymptomatic premature atrial complexes predominately in a pattern of bigeminy. Asymptomatic seven beat run of wide complex tachycardia as detailed above. No overt atrial fibrillation thus far Chart history of diastolic dysfunction. Chronic anemia Chronic alcohol use. Dyslipidemia RECOMMENDATIONS/PLAN: Increase Toprol XL from 12.5 mg/day to 25 mg/day; benefits, use, and risks explained. Increase oral intake of water. Decrease intake of alcohol. Utilize knee high compression stockings, on in the AM and off in the PM No overt indication for permanent pacemaker implantation at this point. Conservative medical management of the presumed underlying coronary artery disease. Cardiology attending physician: Patient seen and examined at the bedside. Feeling better today. Denies dizziness or lightheadedness this AM. Tolerating low dose Toprol. Remains in atrial bigeminy on telemetry. Notes worsening dizziness this a.m. PE: VSS, +orthostatic BP. Gen: NAD, AAO x 3. Heart Regularly Irregular, no murmur. Lungs: Clear bilateral, No rales rhonchi or wheeze. Ext: no edema. A/P: Agree with above PAC history, physical exam, assessment and plan. Toprol XL will be titrated to 25mg daily. Other conservative treatment measure for orthostasis as noted above. Rodriguez Burroughs DO, [facility] Laboratory Results Last 24 Hours Test 07/17/17 10:45 07/18/17 05:53 Bedside Glucose 90 mg/dl Sodium Level 140 mmol/L Potassium Level 3.9 mmol/L Chloride Level 107 mmol/L Carbon Dioxide Level 28 mmol/L Anion Gap 5.0 mmol/L Blood Urea Nitrogen 23 mg/dl Creatinine 0.96 mg/dl Est Creatinine Clear Calc Drug Dose 50.6 ml/min Estimated GFR () 82.6 Estimated GFR (Non- 71.3 BUN/Creatinine Ratio 23.5 Random Glucose 93 mg/dl Calcium Level 8.4 mg/dl Magnesium Level 2.0 mg/dl
--- NOTE | 2017-07-18 11:14 | Progress Note ---
Internal Med Progress Note Date of Service: Jul 18, 2017. Provider Documentation: SUBJECTIVE: Patient seen and examined at the bedside. Patient denies further episodes of "dizziness" or pressure of the head OBJECTIVE: GENERAL: Noted to be comfortable, no respiratory distress. Looks younger for stated age. SKIN: Pallor. Warm. HEENT: Pale palpebral conjunctivae. No ptosis. Dry buccal mucosa. NECK: Supple, no JVD, no tenderness. CHEST: Clear to auscultation. No tenderness. CARDIOVASCULAR: irregular beats ABDOMEN: Soft, nontender, + bowel sound EXTREMITIES: No edema. No gross deformities. No tenderness. NEUROLOGIC: right hand some rigidity of the wrist and tremors ASSESSMENT & PLAN: This is an 87 year old male with a PMH of Parkinson's disease, chronic diastolic dysfunction, hx. of orthostatic hypotension, hx. of atrial bigeminy, HTN, possible hx. of alcohol abuse as per records - presents with dizziness/ lightheadedness Lightheadedness symptoms resolving: possibly related to his Parkinson vs dehydration admission Sinus X ray: All sinuses are considered clear. Orbital margins are intact. There are no air-fluid levels admission Head CT: The paranasal sinuses and mastoid air cells are clear. The calvarium and skull base are intact. The ventricles and sulci are within normal limits. There is no mass, hematoma, midline shift, or acute infarct EEG completed on 07/18/17 obtain MRI as per neurology - imaging pending Cardiac: has been on telemetry with findings of: Asymptomatic premature atrial complexes predominately in a pattern of bigeminy, Asymptomatic seven beat run of wide complex tachycardia b-julia started as per cardiology due to PACs on this admission with recent cardiology recommendations to increase Toprol XL from 12.5 mg/day to 25 mg/day; Increase oral intake of water. Decrease intake of alcohol. Utilize knee high compression stockings, on in the AM and off in the PM. No overt indication for permanent pacemaker implantation at this point. Conservative medical management of the presumed underlying coronary artery disease. Parkinson's Disease continue current medications Hx. of EtOH abuse in the past but not currently HTN blood pressure stable, does not take any medications for blood pressure at home , is now on on Toprol XL DVT ppx Lovenox FULL CODE Disposition: Patient assessed by PT/OT and plans for discharge to home with assistance from his and family vs Home w/ Home Health vs inpatient Rehab when medical workup completed Vital Signs: Date Time Temp Pulse Resp B/P (MAP) Pulse Ox O2 Delivery O2 Flow Rate FiO2 07/18/17 11:29 36.7 97 20 153/74 (100) 98 Room Air 07/18/17 07:36 Room Air 07/18/17 07:35 36.4 43 20 131/75 (93) 98 Room Air 60 110/64 (79) 93 111/63 (79) 07/18/17 04:23 36.6 69 18 132/65 (87) 97 07/18/17 04:00 Room Air 07/18/17 00:00 Room Air 07/17/17 23:47 36.6 69 18 168/82 (110) 97 Room Air 145/70 (95) 149/70 (96) 07/17/17 19:47 Room Air 07/17/17 19:24 36.4 106 18 119/55 (76) 99 Room Air 07/17/17 16:00 Room Air 07/17/17 15:09 36.4 81 18 101/52 (68) 99 Room Air 07/17/17 13:11 40 99 07/17/17 12:00 Room Air Lab Results: Results Past 24 Hours Test 07/18/17 05:53 Range/Units Sodium Level 140 136-145 mmol/L Potassium Level 3.9 3.5-5.1 mmol/L Chloride Level 107 98-107 mmol/L Carbon Dioxide Level 28 21-32 mmol/L Anion Gap 5.0 3-11 mmol/L Blood Urea Nitrogen 23 7-18 mg/dl Creatinine 0.96 0.60-1.40 mg/dl Est Creatinine Clear Calc Drug Dose 50.6 ml/min Estimated GFR () 82.6 Estimated GFR (Non- 71.3 BUN/Creatinine Ratio 23.5 10-20 Random Glucose 93 70-99 mg/dl Calcium Level 8.4 8.5-10.1 mg/dl Magnesium Level 2.0 1.8-2.4 mg/dl
[2017-07-18 11:29] VITALS: BP 153/74; PULSE 97; TEMP 36.7; O2SAT 98
--- NOTE | 2017-07-18 16:00 | ELECTROENCEPHALOGRAPH REPORT ---
REQUESTING PHYSICIAN: Yandy Gonzalez. CLINICAL DIAGNOSIS: Parkinsonism with several hours of low-grade confusion, question non-convulsive seizures. ELECTROENCEPHALOGRAM DIAGNOSIS: Essentially normal during wakefulness. DESCRIPTION OF TRACING: This EEG was done as a bedside recording and is of excellent technical quality with few or no muscle or movement artifacts. Simultaneous video analysis of patient movement and behavior was obtained. Photic stimulation was performed. Hyperventilation was not. Drowsiness and light sleep were not recorded. Under these conditions, there is evidence for normal appearing background rhythm in the alpha range of up to 9-10 Hz of maximum frequency and 40-50 microvolts of maximum amplitude. This is maximum posterior head regions bilaterally symmetrical. Polymorphic mid to slightly lower frequency modest amplitude theta activity is seen symmetrically over the central regions predominantly, but spreads anteriorly as well. Anterior head region maximum bilaterally symmetrical low voltage fast activity in the beta range is present. Photic stimulation provoked some modest driving response without a photomyogenic or photoparoxysmal component. At no time during the waking tracing is there evidence for potentially epileptogenic activity in the form of polyspike or spike wave bursts, focal sharp waves or focal spikes. INTERPRETATION: This EEG is essentially normal during wakefulness without evidence for focal or generalized encephalopathy and without evidence for potentially epileptogenic activity. MTDD
--- NOTE | 2017-07-18 16:21 | Neurology Progress Notes ---
Neurology Progress Note Date of Service Jul 18, 2017. Subjective Nabil has a PMH chronic diastolic dysfunction, HTN, orthostatic hypotension, PD , chronic anemia, EtOH abuse. He was admitted in February of 2017 for CP, and dizziness attributed to orthostatic hypotension. TTE showed EF 60% diastolic dysfunctions. He was also orthostatic in clinic on 02/23/2017, and bradycardic. his doxazosin was stopped at that time. he wore an outpatient monitor with no significant bradycardia. When he was seen 03/07/2017 he was noted to have a pulse of 44. He presents to the hospital with dizziness. He states the feeling is not the same as he gets with his parkinson's it's more than dizziness but its hard for him to define. He had a 15 pound weight loss over this past year although he states he is eating well. currently he is not having the dizziness. Currently he states the symptoms have resolved and he is feeling back to baseline. denies falls, medication changes, N, V, CP, SOB, abdominal pain, weakness, numbness tingling one sided. Objective Date Time Temp Pulse Resp B/P (MAP) Pulse Ox O2 Delivery O2 Flow Rate FiO2 07/18/17 12:00 Room Air 07/18/17 11:29 36.7 97 20 153/74 (100) 98 Room Air 07/18/17 07:36 Room Air 07/18/17 07:35 36.4 43 20 131/75 (93) 98 Room Air 60 110/64 (79) 93 111/63 (79) 07/18/17 04:23 36.6 69 18 132/65 (87) 97 07/18/17 04:00 Room Air 07/18/17 00:00 Room Air 07/17/17 23:47 36.6 69 18 168/82 (110) 97 Room Air 145/70 (95) 149/70 (96) 07/17/17 19:47 Room Air 07/17/17 19:24 36.4 106 18 119/55 (76) 99 Room Air Last 24 Hours Test 07/18/17 05:53 Sodium Level 140 mmol/L Potassium Level 3.9 mmol/L Chloride Level 107 mmol/L Carbon Dioxide Level 28 mmol/L Anion Gap 5.0 mmol/L Blood Urea Nitrogen 23 mg/dl Creatinine 0.96 mg/dl Est Creatinine Clear Calc Drug Dose 50.6 ml/min Estimated GFR () 82.6 Estimated GFR (Non- 71.3 BUN/Creatinine Ratio 23.5 Random Glucose 93 mg/dl Calcium Level 8.4 mg/dl Magnesium Level 2.0 mg/dl Imaging: MRI brain with and without contrast- prelaminarly no acute infarcts will await final radiology comments Exam: Physical Exam: Constitutional: appearance nourished, healthy and mask facies Ears, Nose, Mouth and Throat: mucous membranes moist, no injection and skin normal, eyes normal Cardiovascular: normal S-1 and S-2 and regular rate and rhythm Respiratory: clear to auscultation (CTA) and no rales, rhonchi or wheeze Musculoskeletal: no peripheral edema Skin: no stigmata of neurocutaneous disease noted and normal and intact Eyes: extraocular muscles intact (EOMI) and pupils equal, round and reactive to light (PERRL) decreased blink frequency NEUROLOGIC EXAMINATION: Mental status: Alert and interactive Oriented to full date and location Oriented to person Speech fluent with no evidence of aphasia Cranial Nerves smile eye brow raise symmetric Coordination: finger to nose without bi pass, no reaching tremor, +cogwheeling and resting tremor R>L Gait/Stance: Posture sitting in bed side chair Motor: Negative for pronator drift of out stretched arms with eyes closed. 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, hip flex 5/5 Current Inpatient Medications Medications (Trade) Dose Ordered Sig/Robbie Route Start Time Stop Time Status Last Admin Dose Admin Miscellaneous (Iv Fluids Completed) 1 ea PRN PRN N/A 07/16/17 20:00 07/16/18 19:59 Enoxaparin Sodium (Lovenox Inj) 40 mg Q24H SC 07/16/17 21:00 08/15/17 20:59 07/17/17 20:13 40 MG Acetaminophen (Tylenol Tab) 650 mg Q4H PRN PO 07/16/17 20:30 08/15/17 20:29 Nitroglycerin (Nitrostat Tab) 0.4 mg UD PRN SL 07/16/17 20:30 08/15/17 20:29 Aspirin (Ecotrin Tab) 81 mg QAM PO 07/17/17 09:00 08/16/17 08:59 07/18/17 09:06 81 MG Carbidopa/Levodopa (Sinemet 25/ 100MG Tab) 1 tab TID PO 07/16/17 21:00 08/15/17 20:59 07/18/17 14:16 1 TAB Selegiline HCl (Eldepryl Cap) 5 mg BIDM PO 07/17/17 08:00 08/16/17 07:59 07/18/17 09:06 5 MG Docusate Sodium (coLACE CAP) 100 mg DAILY PO 07/17/17 09:00 08/16/17 08:59 07/18/17 09:06 100 MG Polyethylene (Miralax Powder Packet) 17 gm DAILY PRN PO 07/16/17 20:30 08/15/17 20:29 Atropine Sulfate (Atropine Sulfate 1MG/Ml Inj) 0.5 mg Q5M PRN IV 07/16/17 20:30 08/15/17 20:29 Promethazine HCl 12.5 mg/Sodium Chloride 50.5 ml @ 204 mls/hr Q6H PRN IV 07/16/17 20:30 08/15/17 20:29 Lorazepam (Ativan Inj) PRN Dosing -Active Protocol Q1H PRN IV 07/16/17 20:30 08/15/17 20:29 Thiamine HCl (Vitamin B-1 Tab) 100 mg QAM PO 07/17/17 09:00 08/16/17 08:59 07/18/17 09:07 100 MG Multivitamins (Multivitamin Tab) 1 tab QAM PO 07/17/17 09:00 08/16/17 08:59 07/18/17 09:06 1 TAB Folic Acid (Folvite Tab) 1 mg QAM PO 07/17/17 09:00 08/16/17 08:59 07/18/17 09:06 1 MG Oxycodone/ Acetaminophen (Percocet 5-325mg Tab) 1 tab Q6H PRN PO 07/16/17 20:45 07/30/17 20:44 Metoprolol Succinate (Toprol Xl Tab) 25 mg QAM PO 07/19/17 09:00 08/16/17 10:59 Impression 87 year old male s/p dizziness and hx parkinson's disease. Plan 1. continue current Sinemet dosing 100/25 mg TID has been on for years 2. 15 pound unintentional weight loss will need to monitor for further weight loss 3. cardiology for evaluate and med changes 4. fall precautions 5. PT/OT for discharge needs 6. correct and metabolic issues 7. continue orthostatic blood pressure checks 8. would avoid narcotics 9. MRI brain with and without - no acute findings waiting radiology read I have seen and discussed above patient with Dr Dontrell Martinez, neurology Patient back to baseline mri shows no new or even significant old infarcts and eeg is normal so at this point unless there are medical issues he could likely be discharged back to home care on his old medication schedule Dontrell Martinez MD
[2017-07-18 16:27] VITALS: BP_SYST 155; BP_SYST 158; BP_SYST 162; BP_DIAS 109; BP_DIAS 69; BP_DIAS 80; PULSE 71; TEMP 36.3; O2SAT 100
--- NOTE | 2017-07-18 16:30 | DIAGNOSTIC IMAGING REPORT ---
MRI OF THE BRAIN WITHOUT AND WITH IV CONTRAST CLINICAL HISTORY: Dizziness. Confusion. Possible cerebrovascular accident. COMPARISON STUDY: Head CT July 16, 2017. TECHNIQUE: Utilizing a 1.5 Jaylene magnet and dedicated coil, multiplanar, multiecho imaging of the brain was performed pre and postcontrast administration. IV administration of 6.3 mL of Gadavist contrast was uneventful. FINDINGS: There are no areas of restricted diffusion. No acute intracranial hemorrhage, midline shift or mass effect is present. Mild atrophy is noted. Ventricular system is unremarkable for age. Basilar cisterns are patent. No extra axial collections are present. Flow-voids for the major intracranial vessels are present. There are numerous small white matter T2 hyperintense foci which likely reflect small vessel disease. No intracranial mass or pathologic enhancement is present. Calvarial signal is unremarkable. Orbits are unremarkable. There is no fluid within the mastoid air cells. IMPRESSION: 1. No acute intracranial findings. 2. No intracranial mass or pathologic enhancement. 3. Mild atrophy and small vessel disease. Electronically signed by: Ayad Arzola M.D. 07/18/2017 4:29 PM Dictated Date/Time: 07/18/2017 4:25 PM
[2017-07-18] MEDS ORDERED: TPRSR25 PO (17:13)
--- NOTE | 2017-07-18 17:18 | Discharge Instructions ---
Discharge Instructions Date of Service Jul 18, 2017. Admission Reason for Admission: Dizziness Discharge Discharge Diagnosis / Problem: dizziness,premature atrial complexes and bigeminy,wide complex tachycardia Discharge Goals Goal(s): Decrease discomfort, Improve function Activity Recommendations Activity Limitations: per Instructions/Follow-up section Lifting Limitations: until after follow-up appointment Exercise/Sports Limitations: until after follow-up appointment May Resume Sexual Activity: after follow-up appointment Shower/Bathe: no limitations . Instructions / Follow-Up Instructions / Follow-Up Cardiac: has been on telemetry with findings of: Asymptomatic premature atrial complexes predominately in a pattern of bigeminy, Asymptomatic seven beat run of wide complex tachycardia b-julia started as per cardiology due to PACs on this admission with recent cardiology recommendations to increase Toprol XL from 12.5 mg/day to 25 mg/day; Increase oral intake of water. Decrease intake of alcohol. Utilize knee high compression stockings, on in the AM and off in the PM. No overt indication for permanent pacemaker implantation at this point. Conservative medical management of the presumed underlying coronary artery disease. EEG resulted on 07/18/2017 and negative Brain MRI obtained on 07/18/2017 negative Patient has outpatient appointments made for 07/25/2017 2:40 PM Micheal Ramirez MD Family Practice [facility] 07/28/2017 3:00 PM Nabil Cornejo Jr., DO Cardiology, [facility] 08/11/2017 11:20 AM Dontrell Martinez MD Neurology [facility] Diet Patient's current hospital diet: [facility] Diet (Heart Healthy) Discharge Diet Recommended Diet: AHA Diet (Heart Healthy) Pending Studies Studies pending at discharge: no Laboratory Results 07/17/17 06:43 Red Blood Count 3.72, Mean Corpuscular Volume 92.2, Mean Corpuscular Hemoglobin 29.8, Mean Corpuscular Hemoglobin Concent 32.4, Mean Platelet Volume 10.5, Neutrophils (%) (Auto) 52.6, Lymphocytes (%) (Auto) 32.8, Monocytes (%) (Auto) 12.0, Eosinophils (%) (Auto) 2.0, Basophils (%) (Auto) 0.4, Neutrophils # (Auto ) 2.63, Lymphocytes # (Auto) 1.64, Monocytes # (Auto) 0.60, Eosinophils # (Auto ) 0.10, Basophils # (Auto) 0.02 07/18/17 05:53 Test 07/16/17 18:31 07/16/17 21:16 07/17/17 02:34 07/17/17 06:43 Prothrombin Time 10.1 SECONDS (9.0-12.0) Prothromb Time International Ratio 0.9 (0.9-1.1) Activated Partial Thromboplast Time 27.5 SECONDS (21.0-31.0) Partial Thromboplastin Ratio 1.1 Total Bilirubin 0.5 mg/dl (0.2-1) Aspartate Amino Transf (AST/SGOT) 12 U/L (15-37) Alanine Aminotransferase (ALT/SGPT) < 6 U/L (12-78) Alkaline Phosphatase 68 U/L (45-117) Total Creatine Kinase 42 U/L (39-308) Creatine Kinase MB 0.9 ng/ml (0.5-3.6) Creatine Kinase MB Ratio 2.1 (0-3.0) Troponin I < 0.015 ng/ml (0-0.045) Total Protein 7.6 gm/dl (6.4-8.2) Albumin 4.1 gm/dl (3.4-5.0) Globulin 3.5 gm/dl (2.5-4.0) Albumin/Globulin Ratio 1.2 (0.9-2) Lipase 363 U/L (73-393) Thyroid Stimulating Hormone (TSH) 1.200 uIu/ml (0.300-4.500) Ethyl Alcohol mg/dL < 3.0 mg/dl (0-3) Urine Color YELLOW Urine Appearance CLEAR (CLEAR) Urine pH 7.0 (4.5-7.5) Urine Specific [place] 1.023 (1.000-1.030) Urine Protein NEG (NEG) Urine Glucose (UA) NEG (NEG) Urine Ketones NEG (NEG) Urine Occult Blood NEG (NEG) Urine Nitrite NEG (NEG) Urine Bilirubin NEG (NEG) Urine Urobilinogen NEG (NEG) Urine Leukocyte Esterase NEG (NEG) White Blood Count 5.00 K/uL (4.8-10.8) Red Blood Count 3.72 M/uL (4.7-6.1) Hemoglobin 11.1 g/dL (14.0-18.0) Hematocrit 34.3 % (42-52) Mean Corpuscular Volume 92.2 fL (80-100) Mean Corpuscular Hemoglobin 29.8 pg (25-34) Mean Corpuscular Hemoglobin Concent 32.4 g/dl (32-36) Platelet Count 218 K/uL (130-400) Mean Platelet Volume 10.5 fL (7.4-10.4) Neutrophils (%) (Auto) 52.6 % Lymphocytes (%) (Auto) 32.8 % Monocytes (%) (Auto) 12.0 % Eosinophils (%) (Auto) 2.0 % Basophils (%) (Auto) 0.4 % Neutrophils # (Auto) 2.63 K/uL (1.4-6.5) Lymphocytes # (Auto) 1.64 K/uL (1.2-3.4) Monocytes # (Auto) 0.60 K/uL (0.11-0.59) Eosinophils # (Auto) 0.10 K/uL (0-0.5) Basophils # (Auto) 0.02 K/uL (0-0.2) RDW Standard Deviation 46.3 fL (36.4-46.3) RDW Coefficient of Variation 13.7 % (11.5-14.5) Immature Granulocyte % (Auto) 0.2 % Immature Granulocyte # (Auto) 0.01 K/uL (0.00-0.02) Test 07/17/17 10:45 07/18/17 05:53 Bedside Glucose 90 mg/dl (70-99) Anion Gap 5.0 mmol/L (3-11) Est Creatinine Clear Calc Drug Dose 50.6 ml/min Estimated GFR () 82.6 Estimated GFR (Non- 71.3 BUN/Creatinine Ratio 23.5 (10-20) Calcium Level 8.4 mg/dl (8.5-10.1) Magnesium Level 2.0 mg/dl (1.8-2.4) Medical Emergencies . Who to Call and When: Medical Emergencies: If at any time you feel your situation is an emergency, please call 911 immediately. . Non-Emergent Contact Non-Emergency issues call your: Primary Care Provider, Store Operations Associate, Neurologist Call Non-Emergent contact if: you have any medication questions . . "Provider Documentation" section prepared by Brett Tong. . VTE Core Measure Inpt VTE Proph given/why not?: Enoxaparin (Lovenox)SQ
[2017-07-18] MEDS ORDERED: ELAS-2208 (17:24)
--- NOTE | 2017-07-18 17:27 | Discharge Summary ---
Discharge Summary Date of Service Jul 18, 2017. Discharge Summary Admission Date: Jul 16, 2017 at 19:52 Discharge Date: Jul 18, 2017 Principal Diagnosis: dizziness/lightheadedness, symptomatic premature atrial complexes predominately in a pattern of bigeminy, Asymptomatic seven beat run of wide complex tachycardia, Parkinson's Disease Consultations: cardiology, neurology Medication Reconciliation New Medications: Elastic Bandages & Supports (Medical Compression Stock) 1 Mis Mis UNITS, #2 Metoprolol Succinate (Metoprolol Succinate ER) 25 Mg Tabcr 25 MG PO QAM for 30 Days, #30 TAB Continued Medications: Acetaminophen (Tylenol) 500 Mg Tab 500-1000 MG PO DIRECTED PRN for Pain Alendronate Sodium (Alendronate Sodium) 70 Mg Tab 1 TAB PO WK TAKES ON SUNDAYS Aspirin (Aspirin Ec) 81 Mg Tab 81 MG PO QAM Carbidopa/Levodopa (Sinemet 25MG/100MG) Tab 1 TAB PO TID TAKES AM, NOON, HS. Cholecalciferol (Vitamin D) 400 Unit Tab 400 UNITS PO QAM Naproxen (Naprosyn) 500 Mg Tab 500 MG PO BID PRN for Pain Polyethylene Glycol 3350 (Miralax) 1 Pow 17 GM PO DAILY PRN for Constipation Selegiline HCl (Selegiline HCl) 5 Mg Tab 5 MG PO BIDM MORNING AND NOON WITH MEALS Admission Information HPI (per Admitting provider): CHIEF COMPLAINT: Dizziness. HISTORY OF PRESENT ILLNESS: History obtained from patient and records. Medical history significant for chronic diastolic dysfunction as per records, hypertension, currently not on meds, orthostatic hypotension, Parkinson's disease, chronic anemia (baseline hemoglobin 12), alcohol abuse as per records, past tobacco abuse. Recent confinement February 2017 for chest pain, dizziness attributed to orthostatic hypotension from Parkinson's dse. A 2D echo at that time showed EF of 60%, grade 1 diastolic dysfunction. Patient had a followup with PCP following discharge. Patient noted to be orthostatic in the clinic 02/23/2017. Bradycardic episodes noted in the office as well. Doxazosin stopped. Outpatient Holter monitor did not show any significant bradycardia; frequent symptomatic PACs noted. Patient referred to [facility]. Patient seen last 03/07/2017. As per note, patient noted to be bradycardic during the visit - pulse rate of 44. As per EPS note, the patient having frequent APCs sometimes a bigeminal pattern w/c can be misinterpreted as bradycardia. No indication for pacemaker during visit. Few hours ago, patient was watching television when he developed dizziness described as lightheadedness when he got up. No chest pain, no shortness of breath, no abdominal pain, kind of constipated. At the Emergency Room, initially cardiac rate was noted to be in the 40s, later patient noted to be orthostatic. Patient given IV Lopressor as per Cardiology recommendation for PACs as per ER M.D. MEDICAL HISTORY: As above. SURGERIES: He has had knee surgery, prostate biopsy, tonsillectomy, cataract surgery, removal of pilonidal cyst. HOME MEDICATIONS: Include, Carbidopa, selegiline, alendronate, aspirin. ALLERGIES: ALLOPURINOL, PLAVIX. FAMILY HISTORY: There is a family history of lung cancer, Parkinson's disease, high blood pressure. PERSONAL AND SOCIAL HISTORY: Past tobacco use. 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 Daily alcohol intake. REVIEW OF SYSTEMS: As per HPI, all other ROS negative. Physical Exam (per Admitting): PHYSICAL EXAMINATION: VITAL SIGNS: Blood pressure noted to be 163/107 later 148/60, pulse rate 47, later 86, RR 20 T37, sats 100 on room air. GENERAL: Noted to be comfortable, no respiratory distress. Looks younger for stated age. SKIN: Pallor. Warm. HEENT: Pale palpebral conjunctivae. No ptosis. Dry buccal mucosa. NECK: Supple, no JVD, no tenderness. CHEST: Clear to auscultation. No tenderness. CARDIOVASCULAR: Regular rate and rhythm. Palpable lower extremity pulses. ABDOMEN: Soft, nontender. EXTREMITIES: No edema. No gross deformities. No tenderness. NEUROLOGIC: Coherent, intentional tremors of the hands. Gait and stance not assessed. Hospital Course This is an 87 year old male with a PMH of Parkinson's disease, chronic diastolic dysfunction, hx. of orthostatic hypotension, hx. of atrial bigeminy, HTN, possible hx. of alcohol abuse as per records - presents with dizziness/ lightheadedness Lightheadedness symptoms resolving: possibly related to his Parkinson vs dehydration admission Sinus X ray: All sinuses are considered clear. Orbital margins are intact. There are no air-fluid levels admission Head CT: The paranasal sinuses and mastoid air cells are clear. The calvarium and skull base are intact. The ventricles and sulci are within normal limits. There is no mass, hematoma, midline shift, or acute infarct EEG completed on 07/18/17 MRI on 07/18/17 negative Cardiac: has been on telemetry with findings of: Asymptomatic premature atrial complexes predominately in a pattern of bigeminy, Asymptomatic seven beat run of wide complex tachycardia b-julia started as per cardiology due to PACs on this admission with recent cardiology recommendations to increase Toprol XL from 12.5 mg/day to 25 mg/day; Increase oral intake of water. Decrease intake of alcohol. Utilize knee high compression stockings, on in the AM and off in the PM. No overt indication for permanent pacemaker implantation at this point. Conservative medical management of the presumed underlying coronary artery disease. Parkinson's Disease continue current medications Hx. of EtOH abuse in the past but not currently HTN blood pressure stable, does not take any medications for blood pressure at home , is now on on Toprol XL DVT ppx Lovenox FULL CODE Disposition: Patient assessed by PT/OT and plans for discharge to home with assistance from his and family Total time spent on discharge = 60 minutes This includes examination of the patient, discharge planning, medication reconciliation, and communication with other providers. Discharge Instructions Cardiac: has been on telemetry with findings of: Asymptomatic premature atrial complexes predominately in a pattern of bigeminy, Asymptomatic seven beat run of wide complex tachycardia b-julia started as per cardiology due to PACs on this admission with recent cardiology recommendations to increase Toprol XL from 12.5 mg/day to 25 mg/day; Increase oral intake of water. Decrease intake of alcohol. Utilize knee high compression stockings, on in the AM and off in the PM. No overt indication for permanent pacemaker implantation at this point. Conservative medical management of the presumed underlying coronary artery disease. EEG resulted on 07/18/2017 and negative Brain MRI obtained on 07/18/2017 negative Patient has outpatient appointments made for 07/25/2017 2:40 PM Micheal Ramirez MD Family Practice [facility] 07/28/2017 3:00 PM Nabil Cornejo Jr., DO Cardiology, [facility] 08/11/2017 11:20 AM Dontrell Martinez MD Neurology [facility]
[2017-07-18 17:54] VITALS: BP 158/80; PULSE 71; TEMP 36.3; O2SAT 100
[2017-07-19] MEDS ORDERED: GABAPENTIN 600MG Q12H DOSE PO SCH
[2017-07-19] MEDS ORDERED: METOPROLOL SUCC 25MG EXT REL TAB PO SCH (09:00)
[2017-07-20] MEDS ORDERED: GABAPENTIN 600MG X1 DOSE PO SCH (12:00)
== END 2017-07-18 18:45 | disposition home or self-care (01) ==
LOC: C.EDB 18:17 → C.MED 19:52 → ENRESERV 20:02
PROVIDERS: ADMIT Family Medicine; ATTEND Hospitalist
DX: R42 Dizziness and giddiness (principal); R53.1 Weakness; R00.1 Bradycardia, unspecified; G20 Parkinson's disease; Z91.81 History of falling; E78.5 Hyperlipidemia, unspecified; I10 Essential (primary) hypertension; Z96.659 Presence of unspecified artificial knee joint; Z83.3 Family history of diabetes mellitus; Z87.891 Personal history of nicotine dependence; Z79.82 Long term (current) use of aspirin

== ENCOUNTER 2018-12-30 17:46 | Inpatient (IN) ==
[2018-12-30 18:37] LABS: Basophils # (auto) 0.01 K/uL (0-0.2); Basophils % (auto) 0.2 %; Eosinophils # (auto) 0.14 K/uL (0-0.5); Eosinophils % (auto) 2.6 %; Hematocrit (blood only) 37.2 % (42-52); Hemoglobin 12.1 g/dL (14.0-18.0); Immature Granulocytes # (auto) 0.01 K/uL (0.00-0.02); Immature Granulocytes % (auto) 0.2 %; Lymphocytes # (auto) 1.43 K/uL (1.2-3.4); Lymphocytes % (auto) 26.5 %; Mean Corpuscular Hgb Conc 32.5 g/dL (32-36); Mean Corpuscular Volume 89.4 fL (80-100); Mean Platelet Volume 10.8 fL (7.4-10.4); Monocytes % (auto) 7.4 %; Neutrophils # (auto) 3.41 K/uL (1.4-6.5); Neutrophils % (auto) 63.1 %; Platelet Count 252 K/uL (130-400); RDW Coefficient of Variation 13.9 % (11.5-14.5); Red Blood Count 4.16 M/uL (4.7-6.1)
--- NOTE | 2018-12-30 18:43 | XRay Report ---
XR chest 1V portable CLINICAL HISTORY: dizziness mental status change COMPARISON STUDY: 03/04/2018 FINDINGS: Moderate emphysematous change. Chronic pleural scarring left lung base. Lungs otherwise yaneth ear clear. IMPRESSION: Emphysematous change. No acute process. The above report was generated using voice recognition software. It may contain grammatical, syntax or spelling errors. Electronically signed by: Ridge Appiah M.D. 12/30/2018 6:42 PM
[2018-12-30 18:49] LABS: Alanine Aminotransferase 8 U/L (12-78); Albumin Level 3.8 gm/dl (3.4-5.0); Aspartate Aminotransferase 15 U/L (15-37); BUN Creatinine Ratio 22.2 (10-20); Blood Urea Nitrogen 32 mg/dl (7-18); Calcium 9.2 mg/dl (8.5-10.1); Carbon Dioxide 25 mmol/L (21-32); Chloride 109 mmol/L (98-107); Est GFR (African American) 50.2; Est GFR (Non-African American) 43.4; Glucose 101 mg/dl (70-99); Magnesium 2.3 mg/dl (1.8-2.4); Potassium 4.2 mmol/L (3.5-5.1); Sodium 142 mmol/L (136-145)
[2018-12-30 18:59] LABS: Alkaline Phosphatase 88 U/L (45-117); Bilirubin,Total 0.4 mg/dl (0.2-1); Globulin 3.9 gm/dl (2.5-4.0); NT Pro B Type Natriuretic Pept 140 pg/ml (0-1800); Total Protein 7.7 gm/dl (6.4-8.2); Troponin I < 0.015 ng/ml (0-0.045)
--- NOTE | 2018-12-30 19:05 | CT Scan Report ---
CT head/brain wo con CT DOSE: 614.27 mGy.cm HISTORY: Mental status change dizziness TECHNIQUE: Multiaxial CT images of the head were performed without the use of intravenous contrast. A dose lowering technique was utilized adhering to the principles of ALARA. Comparison: 07/16/2017 Findings: The paranasal sinuses and mastoid air cells are clear. The calvarium and skull base are int act. The ventricles and sulci are within normal limits. There is no mass, hematoma, midline shift, or acute infarct. Impression: No acute intracranial abnormality. The above report was generated using voice recognition software. It may contain grammatical, syntax or spelling errors. Electronically signed by: Ridge Appiah M.D. 12/30/2018 7:03 PM
[2018-12-30] MEDS ORDERED: SODIUM CHLORIDE 0.9% 500 ML IV ONE (19:08)
[2018-12-30 19:56] LABS: Appearance Urine Clear (Clear); Bilirubin Urine Negative (Negative); Blood Urine Negative (Negative); Color Urine Yellow; Glucose Urine UA Negative (Negative); Ketones Urine Negative (Negative); Leukocyte Esterase Urine Negative (Negative); Nitrite Urine Negative (Negative); Protein Urine Negative (Negative); Urobilinogen Urine Negative (Negative)
[2018-12-30] MEDS ORDERED: LORazepam 0.5 MG/1 ML VIAL IV PRN (21:03)
[2018-12-30] MEDS ORDERED: CARBIDOPA/LEVODOPA 25/100MG EXT REL TAB PO STA (21:03)
--- NOTE | 2018-12-30 22:22 | History & Physical Report ---
Date of Service December 30, 2018 Assessment & Plan (1) Orthostatic lightheadedness: Acute lightheadedness after a prolonged period of sitting at a lunch involving some wine. He has a history of orthostatic hypotension, and evidence of VIRIDIANA on bloodwork. This points to possible orthostasis in setting of dehydration. ORthostatic vital signs are positive in the ER despite 1L IVF (160/66 P76 lying, 157/87 P82 sitting, 120/84 P78 standing). He is also on Toprol which will blunt his cardiac response and may contribute to lightheadedness. He was not feeling ill prior to this, has no current or reported new neurologic deficits, and reportedly ambulated to the restroom in the ER twice without difficulty. There was a question of an atrial arrythmia that was seen on telemetry, so will ask Cardiology to weigh in. However, he has been extensively worked up for PACs that are known as an outpatient and also was recently seen in the clinic with no further cardiac workup recommended. For this reason and that he denies symptoms of chest pain, diaphoresis, palpitations during the episode of lightheadedness/weakness, I do not think this is contributing to the situation today. On exam strength is intact and neuro exam is normal. Continue to hydrate overnight. PT/OT to evaluate in am. (2) VIRIDIANA (acute kidney injury): Hydrate overnight and repeat in am. Baseline creat around 1.0. Pt has CKD Stage III. (3) Parkinson disease: On Sinemet with tremor but able to ambulate with a walker at baseline. PT/OT consulted. Cont Sinemet. (4) Dysrhythmia: Extensive outpatient workup for PACs. However, new flutter looking rhythm seen in ER. Will consult cardiology to evaluate. (5) Erythematous condition, unspecified: Sacral erythema, pt has a h/o sacral ulcer. Wound care consulted. Apply Optiform to this area and turn q2hrs. (6) DVT prophylaxis: Heparin Full Code-this needs to be clarified with patient in am. Was not able to have a dedicated conversation before taken to MRI. Dispo-to telemetry, likely DC in am once seen by Cards and PT/OT DO [facility] History of Present Illness Chief Complaint: "i felt weak when trying to stand today" Primary Care Provider: [place] [facility] 88 yo M with h/o Parkinson's disease presented to the ER after significant weakness and lightheadedness today just after a lunch sitting. He had been sitting for a long time per and went to stand but couldn't do that without assistance. Once in a standing position he felt too lightheaded to try to walk and sat back in his chair. Although he has suffered from orthostatic hypotension in the past, this was different because of the weakness he felt in his legs. He subsequently arrived at the ER and received 1L of fluid. He reports being able to ambulate to the restroom while in the ER twice without any difficulties. There is no new neurologic deficit reported different from his baseline, otherwise. He denies any UTI symptoms, abdominal pain, chest pain, palpitations, shortness of breath, headache, visual changes, numbness, difficulty speaking or swallowing, facial droop, confusion, syncope or other stroke like symptoms. He reports feeling well up until this point today. He did have one glass of wine with this lunch, which is a tradition for him every Monday and hasn't affected him poorly. He does admit to not staying as hydrated as he should. Bloodwork reflects a mild VIRIDIANA. Allergies Allergy/AdvReac Type Severity Reaction Status Date / Time Bactrim Allergy Severe ANEMIA, Verified 03/04/18 13:42 THROMBOCYTOPENIA sulfamethoxazole Allergy Severe ANEMIA, Verified 12/30/18 19:15 THROMBOCYTOPENIA trimethoprim Allergy Severe ANEMIA, Verified 12/30/18 19:15 THROMBOCYTOPENIA clopidogrel Allergy Unknown UNKNOWN Verified 12/30/18 19:15 allopurinol AdvReac Intermediate DIARRHEA Verified 12/30/18 19:15 Home Medications Home Medications Medication Instructions Recorded Confirmed Type acetaminophen [Tylenol Extra 500 mg PO Q6H PRN 12/30/18 12/30/18 History Strength] alendronate [Fosamax] 70 mg PO WK 12/30/18 12/30/18 History aspirin [Aspir-81] 81 mg PO DAILY 12/30/18 12/30/18 History carbidopa-levodopa 1 tab PO TID 12/30/18 12/30/18 History cholecalciferol (vitamin D3) 1,000 unit PO DAILY 12/30/18 12/30/18 History [Vitamin D3] ketoconazole 1 dose TOPICAL 2XWK 12/30/18 12/30/18 History metoprolol succinate 25 mg PO DAILY 12/30/18 12/30/18 History polyethylene glycol 3350 [Miralax] 17 g PO HS PRN 12/30/18 12/30/18 History Past Med/Surg History Medical History Parkinson disease (Chronic) Anemia (Chronic) Thrombocytopenia (Chronic) CKD (chronic kidney disease), stage III Gout H/O ETOH abuse GRIS (obstructive sleep apnea) Orthostatic hypotension Osteoporosis Premature atrial complex Psoriasis Surgical History S/P knee replacement (Resolved) Family History Other Family history non-contributory Social History Preferred Language: Kyrgyz Current Living Situation: Spouse Feels Safe at Home: Yes Smoking Status: Former smoker Hx Alcohol Use: Yes (glass of wine once per week) Review of Systems At least ten systems were reviewed and negative except as indicated in HPI above. Physical Exam Vital Signs (Past 24 Hours): Last Vital Signs Temp 36.7 C 12/30/18 17:48 Pulse 75 12/30/18 21:31 Resp 21 12/30/18 21:31 BP 134/94 12/30/18 21:31 Pulse Ox 97 12/30/18 21:31 CONSTITUTIONAL: WNWD, vitals as above, generally well-appearing EYES: EOMI bilaterally, PERRL, normal conjuctivae, no scleral icterus ENT: oropharynx clear,no maxillary or ethmoid sinus tenderness NECK: trachea midline, no lymphadenopathy RESPIRATORY: clear to auscultation bilaterally, no crackles, rales or wheezes, normal respiratory effort CARDIOVASCULAR: regular rate and rhythm, S1 and 2 heard without murmurs, gallops or rubs, no JVD, no peripheral edema GASTROINTESTINAL: normal bowel sounds, soft, nontender, nondistended MUSCULOSKELETAL: strength 5/5 throughout, head is normocephalic and atraumatic SKIN: warm and dry, erythematous area in sacral region without evidence of breakdown, nonblanchable. NEUROLOGIC: patellar DTR could not be elicited, BR DTR 2+ bilat. PERRL, EOMI, no facial palsy, no dysarthria. CN 2-12 intact, no apparent sensory deficit, normal cognition, normal speech, +tremor in bilat upper extremities PSYCHIATRIC: alert cooperative and oriented to person, place and time. Results & Data Laboratory Results Short CBC 12/30/18 Range/Units 18:00 WBC 5.40 (4.8-10.8) K/uL Hgb 12.1 L (14.0-18.0) g/dL Hct 37.2 L (42-52) % Plt Count 252 (130-400) K/uL BMP 12/30/18 18:00 Sodium 142 Potassium 4.2 Chloride 109 H Carbon Dioxide 25 BUN 32 H Creatinine 1.44 H Glucose 101 H Calcium 9.2 Cardiac Enzymes 12/30/18 Range/Units 18:00 Troponin I < 0.015 (0-0.045) ng/ml Liver Function 12/30/18 Range/Units 18:00 Total Bilirubin 0.4 (0.2-1) mg/dl AST 15 (15-37) U/L ALT 8 L (12-78) U/L Alkaline Phosphatase 88 (45-117) U/L Albumin 3.8 (3.4-5.0) gm/dl Urine 12/30/18 Range/Units 19:30 Urine Color Yellow Urine Appearance Clear (Clear) Urine pH 5.0 (4.5-7.5) Ur Specific [place] 1.020 (1.000-1.030) Urine Protein Negative (Negative) Urine Glucose (UA) Negative (Negative) Diagnostic Findings XR chest 1V portable CLINICAL HISTORY: dizziness mental status change COMPARISON STUDY: 03/04/2018 FINDINGS: Moderate emphysematous change. Chronic pleural scarring left lung base. Lungs otherwise appear clear. IMPRESSION: Emphysematous change. No acute process. CT head/brain wo con CT DOSE: 614.27 mGy.cm HISTORY: Mental status change dizziness TECHNIQUE: Multiaxial CT images of the head were performed without the use of intravenous contrast. A dose lowering technique was utilized adhering to the principles of ALARA. Comparison: 07/16/2017 Findings: The paranasal sinuses and mastoid air cells are clear. The calvarium and skull base are intact. The ventricles and sulci are within normal limits. There is no mass, hematoma, midline shift, or acute infarct. Impression: No acute intracranial abnormality. Medications Administered 1L NSS in ER ECG Rhythm: sinus rhythm Code Status & VTE Plan VTE Prophylaxis Plan VTE Prophylaxis will be ordered: Yes Critical Care Time Critical Care Time: No (1) Dysrhythmia Arrhythmia type: unspecified cardiac arrhythmia Qualified Code(s): I49.9 - Cardiac arrhythmia, unspecified
--- NOTE | 2018-12-30 22:52 | Magnetic Resonance Report ---
MR angio head wo con HISTORY: Status change dizziness TECHNIQUE: 3-D [id number] MRA of the brain was performed without contrast. COMPARISON STUDY: 07/18/2017 FINDINGS: Visualized intracranial internal carotid arteries, distal vertebral arteries, and basilar a rtery are widely patent. There is no significant stenosis, occlusion, or aneurysm seen within the catarino ateral ACAs, MCAs, or fermenter wine. IMPRESSION: No significant stenosis, occlusion, or aneurysm within the koi of [place]. Normal study The above report was generated using voice recognition software. It may contain grammatical, syntax or spelling errors. Electronically signed by: Ridge Appiah M.D. 12/30/2018 10:51 PM
--- NOTE | 2018-12-30 23:09 | Magnetic Resonance Report ---
MR brain wo con HISTORY: Mental status change dizziness TECHNIQUE: Multiplanar multisequence MRI of the brain was performed without the use of contrast. COMPARISON STUDY: None. FINDINGS: There are no areas of restricted diffusion to suggest acute infarction. The midline structu res are intact. The paranasal sinuses are clear. The mastoid air cells are clear. The ventricles and sulci are within normal limits for age. There is no mass, hematoma, midline shift. The major vascular flow-voids at the skull base are well maintained. Minimal chronic small vessel change of aging the periventricular and deep matter regions. IMPRESSION: 1. No evidence for an acute ischemic event. 2. Age-related mild chronic small vessel change throughout both cerebral hemispheres. 3. Otherwise negative study The above report was generated using voice recognition software. It may contain grammatical, syntax or spelling errors. Electronically signed by: Ridge Appiah M.D. 12/30/2018 11:07 PM
[2018-12-30] MEDS ORDERED: POLYETHYLENE (MIRALAX) 17 GM PACK PO PRN (23:46)
[2018-12-30] MEDS ORDERED: ONDANSETRON INJ 2 MG/ML 2 ML VIAL IV PRN (23:46)
[2018-12-30] MEDS ORDERED: ACETAMINOPHEN 325 MG TAB PO PRN (23:46)
[2018-12-31 00:16] LABS: Prothrombin Time 10.1 Seconds (9.0-12.0)
[2018-12-31] MEDS: SODIUM CHLORIDE 0.9% 1000ML 1,000 ML IV SCH ×3 (00:26→20:58)
[2018-12-31] MEDS: HEPARIN SOD 5,000 UNIT/0.5 ML VIAL SQ SCH ×3 (06:27→21:31)
[2018-12-31 06:31] LABS: Hematocrit (blood only) 34.4 % (42-52); Hemoglobin 11.2 g/dL (14.0-18.0); Mean Corpuscular Hgb Conc 32.6 g/dL (32-36); Mean Corpuscular Volume 89.1 fL (80-100); Mean Platelet Volume 10.1 fL (7.4-10.4); Platelet Count 204 K/uL (130-400); RDW Coefficient of Variation 13.8 % (11.5-14.5); RDW Standard Deviation 44.8 fL (36.4-46.3); Red Blood Count 3.86 M/uL (4.7-6.1); White Blood Count 5.43 K/uL (4.8-10.8)
[2018-12-31 06:50] LABS: BUN Creatinine Ratio 22.6 (10-20); Calcium 8.4 mg/dl (8.5-10.1); Creatinine Clr Calc Pharmacy 46.6 ml/min; Est GFR (African American) 71.1; Est GFR (Non-African American) 61.4; Potassium 4.1 mmol/L (3.5-5.1)
--- NOTE | 2018-12-31 07:10 | Magnetic Resonance Report ---
NECK MRA HISTORY: L status change, lightheadedness. dizziness TECHNIQUE: Lyup-ko-emdmkw and gadolinium-enhanced MRA of the neck was performed both before and after the intravenous administration of contrast. All measurements were calculated based on NASCET criteri a. The patient was injected with 6 cc of intravenous Gadavist. COMPARISON STUDY: None. FINDINGS: The aortic arch and proximal great vessels are widely patent. There is a mild focal stenos is of the proximal right internal carotid artery with an estimated 30% diameter narrowing. No evidenc e of a significant stenotic lesions are visualized. There are no findings to indicate an aneurysm. Th ere is no evidence for vertebral stenosis. IMPRESSION: 30% diameter stenosis of the proximal right internal carotid artery. No evidence of significant left internal carotid artery stenosis. No evidence of significant vertebral artery stenosis. Electronically signed by: Selwyn Turk M.D. 12/31/2018 7:08 AM
[2018-12-31] MEDS: CARBIDOPA/LEVODOPA 25/100MG TAB PO SCH ×3 (08:20→20:55)
[2018-12-31] MEDS: CHOLECALCIFEROL 1,000 UNITS TAB PO SCH (08:20)
[2018-12-31] MEDS: ASPIRIN 81 MG ECTAB PO SCH (08:20)
--- NOTE | 2018-12-31 11:31 | Consultation Report ---
DATE OF CONSULTATION: 12/31/2018 CONSULTATION REQUESTED BY: Dr. Hamilton. REASON FOR CONSULTATION: Frequent PACs. HISTORY OF PRESENT ILLNESS: Mr. Bro is a very pleasant 88-year-old gentleman who normally follows with myself as an outpatient for history of symptomatic PACs. He presented to [facility] Emergency Department on 12/30/2018 after he had difficulty getting out of his chair yesterday on that date. He states he was in his normal state of health. He had coffee to drink in the morning. A small glass of wine with lunch, but otherwise really did not drink any other fluids; maybe a small glass of water with breakfast. He states he was in his normal recliner feeling well when he tried to stand up, he could not get up, he was too weak. He made a total of 4 attempts before he was successful and in his words when he did stand up, he wishes he wouldn't have. He was very lightheaded and felt as though he might pass out. Luckily he did not lose consciousness. He alerted his and the patient was brought into the Emergency Department. He was given IV fluids, but remained orthostatic after 1 liter and the fluids were continued. His metoprolol was held and he has not had any recurrence of his palpitations despite having significant PAC burden on telemetry. Currently, he states he feels fine at rest but still a little weak and not quite back to his normal baseline. Otherwise, he feels well. PAST SURGICAL HISTORY: 1. Pilonidal cyst. 2. Prostate biopsy. 3. Colonoscopies. 4. Cataracts. 5. Total knee replacement. 6. Colonoscopies. 7. Tonsil and adenoidectomy as a child. MEDICAL ILLNESSES: 1. Parkinson's disease with significant resting tremor. 2. History of symptomatic PACs. 3. History of orthostatic hypotension. 4. Stage III chronic kidney disease. 5. Obstructive sleep apnea. Note with no benefit from CPAP. 6. Diastolic dysfunction with normal LV systolic function. FAMILY HISTORY: Noncontributory. SOCIAL HISTORY: Denies any tobacco use. Drinks alcohol on a regular basis. Denies any recreational drug use. He is and lives at home with his at [facility]. 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 REVIEW OF SYSTEMS: As per HPI, all other review of systems reviewed and negative at this time. ALLERGIES: 1. BACTRIM. 2. ALLOPURINOL. 3. PLAVIX. MEDICATIONS AN OUTPATIENT: 1. Metoprolol succinate 25 mg daily. 2. Sinemet 3 times a day. 3. Fosamax weekly. 4. Aspirin 81 mg daily. PHYSICAL EXAMINATION: VITALS: Temperature 36.4, pulse 48, respiratory rate 12, blood pressure 133/91. GENERAL: Awake, alert, oriented x3, in no acute distress, significant upper extremity resting tremor, right greater than left. HEENT: Normocephalic, atraumatic. Pupils equal, round, and reactive to light and accommodation. Extraocular muscles intact. Anicteric sclerae. Moist mucous membranes. NECK: No JVD, no bruit. CARDIOVASCULAR: Regular. Positive S4. Normal S1 and S2. No S3. No murmurs or rubs. PULMONARY: Clear to auscultation bilaterally. No rales, rhonchi, or wheezing. ABDOMEN: Bowel sounds x4, soft. No rebound, guarding, tenderness. No organomegaly. EXTREMITIES: No clubbing, cyanosis or edema. +2 pedal pulses bilaterally. SKIN: Warm and dry. TEST RESULTS OF SIGNIFICANCE: Sodium 142, potassium 4.1, BUN 24, creatinine of 1. Of note, his creatinine was elevated at 1.44 upon admission. Telemetry review shows significant PAC burden including atrial bigeminy, but no evidence of atrial fibrillation or flutter. IMPRESSION: 1. Orthostatic hypotension. 2. Poor fluid intake, ongoing. 3. History of symptomatic PACs previously on metoprolol. RECOMMENDATIONS: It was my pleasure to see Mr. Bro in reevaluation today. From a cardiac standpoint, I agree that he does appear to be volume depleted and this is not unusual for him and he has had other admissions for orthostatic hypotension in the past. Given the fact that his LV systolic function remains normal and he is asymptomatic with his PACs I agree with holding his metoprolol for now and following him and see if this does not help preclude some of these episodes from occurring. I would continue with the IV fluids as he does not examine as volume overload. I will follow his volume status clinically. Likely discharge in the a.m. from a cardiac standpoint.
--- NOTE | 2018-12-31 16:47 | Hospitalist Progress Note ---
Date of Service December 31, 2018 Assessment & Plan (1) Orthostatic lightheadedness: Present on admission with lightheadedness and weakness Positive orthostatic Vital CT head showed no acute intracranial abnormality MRA neck showed 30% diameter stenosis of the proximal right internal carotid ar [place]. MRA head showed no significant stenosis, occlusion, or aneurysm within the [place]. MRI neck showed no evidence for an acute ischemic event. No arrhythmia from tele monitor Cardiology on board and recommended to continue holding [place] PT/OT (2) VIRIDIANA (acute kidney injury): Creatinine 1.4 on admission, improved to 1.08 Will decrease IV fluid Avoid nephrotoxic agents (3) Parkinson disease: Cont Sinemet. stable (4) Dysrhythmia: Continue monitor in tele Cardiology on board Metoprolol on hold (5) Erythematous condition, unspecified: Pressure Ulcer stage 3 Wound care on board Continue daily wound care (6) DVT prophylaxis: On Heparin CODE STATUS Full Code- Disposition Possible discharge home tomorrow Subjective Pt was seen and examined Sitting in bed with no distress eating breakfast Pt said that he feels fine He denies any symptoms Physical Exam Vital Signs (Past 24 Hours): Last Vital Signs Temp 36.7 C 12/31/18 14:47 Pulse 73 12/31/18 16:00 Resp 16 12/31/18 14:47 BP 156/76 H 12/31/18 14:47 Pulse Ox 95 12/31/18 14:47 Physical Exam: General- No acute distress Head- atraumatic Eyes- PERRL, EOMI, ENT- oropharynx clear Neck- supple, no JVD Lungs- clear to auscultation Heart- regular rhythm; no murmur Abdomen- normal bowel sounds, soft, nontender Extremities- no calf tenderness Neuro- alert, oriented x 3; PERRL, EOMI;+tremors Skin- warm & dry (1) Dysrhythmia Arrhythmia type: unspecified cardiac arrhythmia Qualified Code(s): I49.9 - Cardiac arrhythmia, unspecified
--- NOTE | 2019-01-01 02:00 | Emergency Department Note ---
Entered by Cj Tirado acting as a scribe for Katlyn Jain DO History of Present Illness General Chief complaint: Dizziness Stated complaint: DIZZY,LIGHT HEADED,WEAK Time Seen by Provider: 12/30/18 17:53 Source: patient History of Present Illness Onset (ago): hour(s) 3 Location: head (global) Pain Consistency: + other (currently improved but still present) Quality: + other (dizziness) Exacerbated By: + other (standing or attempting to walk) Associated symptoms: + weakness and + other (denies falls or head trauma) Treatments prior to arrival: other (glass of wine, Sinemet) The patient is an 88 year old male with Parkinsons who presents to the Emergency Room with complaints of dizziness beginning about three hours ago. The patient reports that he felt tired but unchanged from baseline this morning, although the patients states that he appeared lethargic. The patient states that his dizziness is exacerbated with standing or attempting to walk, noting that it caused him to feel lightheaded, off-balance, and weak. He notes some mild dizziness currently. He reports that he had a glass of wine with lunch at noon and then took his dose of Sinemet. He states that this is his routine every Monday, and it has never caused similar symptoms in the past. He does report a history of similar dizziness that was thought to be cardiac-related, and he now follows cardiology every six months. He states that he does not have a pacemaker. He denies a history of other heart problems aside from a funny heartbeat that they told me I dont need to worry about. Several family members have had heart attacks, but not the patient. The patient denies falls, head trauma, abdominal pain, chest pain, shortness of breath, problems with bowel movements, urinary symptoms, or one-sided weakness. Family denies facial droop or speech difficulties. The patient felt at baseline yesterday, and he typically uses a walker. He felt hot today but has no recorded fevers. Home Medications Home Medications Medication Instructions Recorded Confirmed Type acetaminophen [Tylenol Extra 500 mg PO Q6H PRN 12/30/18 12/30/18 History Strength] alendronate [Fosamax] 70 mg PO WK 12/30/18 12/30/18 History aspirin [Aspir-81] 81 mg PO DAILY 12/30/18 12/30/18 History carbidopa-levodopa 1 tab PO TID 12/30/18 12/30/18 History cholecalciferol (vitamin D3) 1,000 unit PO DAILY 12/30/18 12/30/18 History [Vitamin D3] ketoconazole 1 dose TOPICAL 2XWK 12/30/18 12/30/18 History metoprolol succinate 25 mg PO DAILY 12/30/18 12/30/18 History polyethylene glycol 3350 [Miralax] 17 g PO HS PRN 12/30/18 12/30/18 History Allergies Allergy/AdvReac Type Severity Reaction Status Date / Time Bactrim Allergy Severe ANEMIA, Verified 03/04/18 13:42 THROMBOCYTOPENIA sulfamethoxazole Allergy Severe ANEMIA, Verified 12/30/18 19:15 THROMBOCYTOPENIA trimethoprim Allergy Severe ANEMIA, Verified 12/30/18 19:15 THROMBOCYTOPENIA clopidogrel Allergy Unknown UNKNOWN Verified 12/30/18 19:15 allopurinol AdvReac Intermediate DIARRHEA Verified 12/30/18 19:15 Past Med/Surg History Medical History Parkinson disease (Chronic) Anemia (Chronic) Thrombocytopenia (Chronic) CKD (chronic kidney disease), stage III Gout H/O ETOH abuse GRIS (obstructive sleep apnea) Orthostatic hypotension Osteoporosis Premature atrial complex Psoriasis Surgical History S/P knee replacement (Resolved) Family History Other Family history non-contributory Social History Communication Ability: Effective Beliefs That Will Affect Care: None marital status: Current Living Situation: Spouse and Personal Care Facility Current [facility] Situation Comment: [facility] Feels Safe at Home: Yes Safety Concerns: Feels Safe At This Time Smoking Status: Former smoker Hx Alcohol Use: Yes Hx Substance Use: No Review of Systems See HPI for pertinent positives & negatives. and A total of 10 systems reviewed and were otherwise negative Physical Exam Vital Signs Vital Signs - 24 hr 12/31/18 03:08 12/31/18 07:15 12/31/18 07:42 Temperature 36.4 C L 36.4 C L Temperature Source Oral Oral Pulse Rate - Sitting Pulse Rate - Standing Pulse Rate 60 Pulse Rate [Left Finger] 100 H 48 L Pulse Rhythm [Left Finger] Pulse Strength [Left Finger] Respiratory Rate 16 16 Respiratory Effort / Characteristics Non-Labored Respiratory Depth Normal Respiratory Pattern Regular Blood Pressure - Sitting Blood Pressure- Standing Blood Pressure [Right Arm] 138/80 133/91 Blood Pressure Mean [Right Arm] 99 105 Blood Pressure Position [Right Arm] Lying Lying Pulse Oximetry 98 97 Pulse Oximetry [Post Treatment/Recovery] Oxygen Delivery Method Room Air Room Air Oxygen Flow Rate [Post Treatment/Recovery] 12/31/18 11:18 12/31/18 11:29 12/31/18 14:47 Temperature 36.4 C L 36.7 C Temperature Source Oral Oral Pulse Rate - Sitting 80 Pulse Rate - Standing 75 Pulse Rate Pulse Rate [Left Finger] 76 56 L Pulse Rhythm [Left Finger] Pulse Strength [Left Finger] Respiratory Rate 16 16 Respiratory Effort / Characteristics Respiratory Depth Respiratory Pattern Blood Pressure - Sitting 137/68 Blood Pressure- Standing 104/61 Blood Pressure [Right Arm] 121/74 156/76 H Blood Pressure Mean [Right Arm] 89 102 Blood Pressure Position [Right Arm] Lying Lying Pulse Oximetry 98 95 Pulse Oximetry [Post Treatment/Recovery] 96 Oxygen Delivery Method Room Air Room Air Oxygen Flow Rate [Post Treatment/Recovery] 0 12/31/18 16:00 12/31/18 18:59 12/31/18 22:50 Temperature 36.8 C 36.4 C L Temperature Source Oral Oral Pulse Rate - Sitting Pulse Rate - Standing Pulse Rate 73 Pulse Rate [Left Finger] 70 75 Pulse Rhythm [Left Finger] Regular Regular Pulse Strength [Left Finger] Normal Normal Respiratory Rate 18 18 Respiratory Effort / Characteristics Non-Labored Non-Labored Respiratory Depth Normal Normal Respiratory Pattern Regular Regular Blood Pressure - Sitting Blood Pressure- Standing Blood Pressure [Right Arm] 142/72 H 140/53 L Blood Pressure Mean [Right Arm] 95 82 Blood Pressure Position [Right Arm] Lying Lying Pulse Oximetry 98 95 Pulse Oximetry [Post Treatment/Recovery] Oxygen Delivery Method Room Air Room Air Oxygen Flow Rate [Post Treatment/Recovery] 12/31/18 23:50 Temperature Temperature Source Pulse Rate - Sitting Pulse Rate - Standing Pulse Rate 73 Pulse Rate [Left Finger] Pulse Rhythm [Left Finger] Pulse Strength [Left Finger] Respiratory Rate Respiratory Effort / Characteristics Respiratory Depth Respiratory Pattern Blood Pressure - Sitting Blood Pressure- Standing Blood Pressure [Right Arm] Blood Pressure Mean [Right Arm] Blood Pressure Position [Right Arm] Pulse Oximetry Pulse Oximetry [Post Treatment/Recovery] Oxygen Delivery Method Oxygen Flow Rate [Post Treatment/Recovery] GENERAL: alert, resting tremor, well nourished, no distress, non-toxic EYE EXAM: normal conjunctiva, PERRL and EOM's grossly intact OROPHARYNX: no exudate, no erythema, lips, buccal mucosa, and tongue normal and mucous membranes are moist NECK: supple, no nuchal rigidity, no adenopathy, non-tender LUNGS: Clear to auscultation. Normal chest wall mechanics, no w/r/r HEART: no murmurs, S1 normal and S2 normal ABDOMEN: abdomen soft, non-tender, normo-active bowel sounds, no masses, no rebound or guarding. BACK: Back is symmetrical on inspection and there is no deformity, no midline tenderness, no CVA tenderness. SKIN: no rashes and no bruising UPPER EXTREMITIES: upper extremities are grossly normal. FROM, nml pulses b/l. LOWER EXTREMITIES: Trace bilateral edema. FROM, nml pulses b/l. NEURO EXAM: Normal sensorium, cranial nerves II-XII grossly intact, normal speech, no gross weakness of arms, no gross weakness of legs. Gross sensation intact. Course 1804: The patient was evaluated in room A9B, and a complete history and physical examination were performed. 1930: I updated the patient and family on current results. He states that he currently feels improved from earlier. geoscience technician did bring to my attention several changes in rhythms that were noted these were printed out and placed on the chart. 1936: I reviewed the patients recent cardiology note. 2021: I had an extensive discussion with the patient and family. They are agreeable to hospitalization. 2026: I consulted Dr. Abraham Jenkins Hospitalist. The patient will be reeval uated for hospitalization. Consultations Consultation #1: I consulted Dr. Abraham Jenkins Hospitalist. The patient will be reevaluated for hospitalization. Time: 20:27 Administered Medications Aspirin (Ecotrin Ectab) 81 mg PO DAILY FER Stop: 01/30/19 08:59 Last Admin: 12/31/18 08:20 Dose: 81 mg Documented by: [id number] Carbidopa/Levodopa (Sinemet 25/100 Mg) 1 tab PO TID FER Stop: 01/30/19 08:59 Last Admin: 12/31/18 20:55 Dose: 1 tab Documented by: [id number] Admin: 12/31/18 14:31 Dose: 1 tab Documented by: [id number] Admin: 12/31/18 08:20 Dose: 1 tab Documented by: [id number] Heparin Sodium (Porcine) (Heparin Sodium (Porcine)) 5,000 units SQ Q8 FER Stop: 01/30/19 06:14 Last Admin: 12/31/18 21:31 Dose: 5,000 units Documented by: [id number] Cosigned by: [id number] Admin: 12/31/18 14:31 Dose: 5,000 units Documented by: [id number] Cosigned by: [id number] Admin: 12/31/18 06:27 Dose: 5,000 units Documented by: [id number] Cosigned by: [id number] Sodium Chloride (Nss 1000ml) 1,000 mls @ 50 mls/hr IV .Q20H FER Stop: 01/30/19 00:00 Last Infusion: 12/31/18 23:10 Dose: 50 mls/hr Documented by: [id number] Admin: 12/31/18 20:58 Dose: 100 mls/hr Documented by: [id number] Infusion: 12/31/18 20:58 Dose: 100 mls/hr Documented by: [id number] Admin: 12/31/18 11:27 Dose: 100 mls/hr Documented by: [id number] Infusion: 12/31/18 11:27 Dose: 100 mls/hr Documented by: [id number] Admin: 12/31/18 00:26 Dose: 100 mls/hr Documented by: [id number] Vitamin D (Vitamin D3) 1,000 units PO DAILY FER Stop: 01/30/19 08:59 Last Admin: 12/31/18 08:20 Dose: 1,000 units Documented by: [id number] Discontinued Medications Carbidopa/Levodopa (Sinement Cr 25/100mg) 1 tab PO NOW STA Stop: 12/30/18 21:04 Last Admin: 12/30/18 21:16 Dose: 1 tab Documented by: [id number] Sodium Chloride (Nss) 500 mls @ 999 mls/hr IV .Q31M ONE Stop: 12/30/18 19:38 Last Infusion: 12/30/18 21:16 Dose: 1,022 mls/hr Documented by: [id number] Admin: 12/30/18 19:43 Dose: 999 mls/hr Documented by: [id number] Medical Decision Making Differential Diagnosis Differential diagnosis: Etiologies such as benign positional vertigo, dehydration, hypovolemia, anemia, tumor, infection, hypoglycemia, electrolyte abnormalities, cardiac sources, intracerebral event, toxicologic, neurologic, as well as others were entertained. Medical Records Attestation: I reviewed the patient's medical records. Home Medications Current Medication List: was personally reviewed by me Laboratory Data Attestation: I reviewed the patient's lab results. Result diagrams: 12/31/18 06:19 12/31/18 06:19 Lab Results 12/30/18 12/30/18 12/30/18 Range/Units 18:00 18:00 18:00 WBC 5.40 (4.8-10.8) K/uL RBC 4.16 L (4.7-6.1) M/uL Hgb 12.1 L (14.0-18.0) g/dL Hct 37.2 L (42-52) % MCV 89.4 (80-100) fL MCH 29.1 (25-34) pg MCHC 32.5 (32-36) g/dL RDW Std Deviation 46.0 (36.4-46.3) fL RDW Coeff of Uri 13.9 (11.5-14.5) % Plt Count 252 (130-400) K/uL MPV 10.8 H (7.4-10.4) fL Immature Gran % (Auto) 0.2 % Neut % (Auto) 63.1 % Lymph % (Auto) 26.5 % Cole % (Auto) 7.4 % Eos % (Auto) 2.6 % Baso % (Auto) 0.2 % Immature Gran # (Auto) 0.01 (0.00-0.02) K/uL Neut # (Auto) 3.41 (1.4-6.5) K/uL Lymph # (Auto) 1.43 (1.2-3.4) K/uL Cole # (Auto) 0.40 (0.11-0.59) K/uL Eos # (Auto) 0.14 (0-0.5) K/uL Baso # (Auto) 0.01 (0-0.2) K/uL PT 10.1 (9.0-12.0) Seconds INR 1.0 (0.9-1.1) Sodium 142 (136-145) mmol/L Potassium 4.2 (3.5-5.1) mmol/L Chloride 109 H (98-107) mmol/L Carbon Dioxide 25 (21-32) mmol/L Anion Gap 8.0 (3-11) BUN 32 H (7-18) mg/dl Creatinine 1.44 H (0.6-1.4) mg/dl Est Cr Clr Drug Dosing Not Reportable Est GFR ( Amer) 50.2 Est GFR (Non-Af Amer) 43.4 BUN/Creatinine Ratio 22.2 H (10-20) Glucose 101 H (70-99) mg/dl Calcium 9.2 (8.5-10.1) mg/dl Magnesium 2.3 (1.8-2.4) mg/dl Total Bilirubin 0.4 (0.2-1) mg/dl AST 15 (15-37) U/L ALT 8 L (12-78) U/L Alkaline Phosphatase 88 (45-117) U/L Troponin I < 0.015 (0-0.045) ng/ml NT-Pro-B Natriuret Pep 140 (0-1800) pg/ml Total Protein 7.7 (6.4-8.2) gm/dl Albumin 3.8 (3.4-5.0) gm/dl Globulin 3.9 (2.5-4.0) gm/dl Albumin/Globulin Ratio 1.0 (0.9-2) Lipase 432 H (73-393) U/L TSH 2.000 (0.300-4.500) uIu/ml Urine Color Urine Appearance (Clear) Urine pH (4.5-7.5) Ur Specific [place] (1.000-1.030) Urine Protein (Negative) Urine Glucose (UA) (Negative) Urine Ketones (Negative) Urine Blood (Negative) Urine Nitrite (Negative) Urine Bilirubin (Negative) Urine Urobilinogen (Negative) Ur Leukocyte Esterase (Negative) 12/30/18 12/31/18 12/31/18 Range/Units 19:30 06:19 06:19 WBC 5.43 (4.8-10.8) K/uL RBC 3.86 L (4.7-6.1) M/uL Hgb 11.2 L (14.0-18.0) g/dL Hct 34.4 L (42-52) % MCV 89.1 (80-100) fL MCH 29.0 (25-34) pg MCHC 32.6 (32-36) g/dL RDW Std Deviation 44.8 (36.4-46.3) fL RDW Coeff of Uri 13.8 (11.5-14.5) % Plt Count 204 (130-400) K/uL MPV 10.1 (7.4-10.4) fL Immature Gran % (Auto) % Neut % (Auto) % Lymph % (Auto) % Cole % (Auto) % Eos % (Auto) % Baso % (Auto) % Immature Gran # (Auto) (0.00-0.02) K/uL Neut # (Auto) (1.4-6.5) K/uL Lymph # (Auto) (1.2-3.4) K/uL Cole # (Auto) (0.11-0.59) K/uL Eos # (Auto) (0-0.5) K/uL Baso # (Auto) (0-0.2) K/uL PT (9.0-12.0) Seconds INR (0.9-1.1) Sodium 142 (136-145) mmol/L Potassium 4.1 (3.5-5.1) mmol/L Chloride 112 H (98-107) mmol/L Carbon Dioxide 26 (21-32) mmol/L Anion Gap 4.0 (3-11) BUN 24 H (7-18) mg/dl Creatinine 1.08 (0.6-1.4) mg/dl Est Cr Clr Drug Dosing 46.6 Est GFR ( Amer) 71.1 Est GFR (Non-Af Amer) 61.4 BUN/Creatinine Ratio 22.6 H (10-20) Glucose 91 (70-99) mg/dl Calcium 8.4 L (8.5-10.1) mg/dl Magnesium (1.8-2.4) mg/dl Total Bilirubin (0.2-1) mg/dl AST (15-37) U/L ALT (12-78) U/L Alkaline Phosphatase (45-117) U/L Troponin I (0-0.045) ng/ml NT-Pro-B Natriuret Pep (0-1800) pg/ml Total Protein (6.4-8.2) gm/dl Albumin (3.4-5.0) gm/dl Globulin (2.5-4.0) gm/dl Albumin/Globulin Ratio (0.9-2) Lipase (73-393) U/L TSH (0.300-4.500) uIu/ml Urine Color Yellow Urine Appearance Clear (Clear) Urine pH 5.0 (4.5-7.5) Ur Specific [place] 1.020 (1.000-1.030) Urine Protein Negative (Negative) Urine Glucose (UA) Negative (Negative) Urine Ketones Negative (Negative) Urine Blood Negative (Negative) Urine Nitrite Negative (Negative) Urine Bilirubin Negative (Negative) Urine Urobilinogen Negative (Negative) Ur Leukocyte Esterase Negative (Negative) Imaging Data Radiologist's Impression: Radiology results as stated below per my review and the radiologist's interpretation: XR chest 1V portable CLINICAL HISTORY: dizziness mental status change COMPARISON STUDY: 03/04/2018 FINDINGS: Moderate emphysematous change. Chronic pleural scarring left lung base. Lungs otherwise appear clear. IMPRESSION: Emphysematous change. No acute process. The above report was generated using voice recognition software. It may contain grammatical, syntax or spelling errors. Electronically signed by: Ridge Appiah M.D. 12/30/2018 6:[address] head/brain wo con CT DOSE: 614.27 mGy.cm HISTORY: Mental status change dizziness TECHNIQUE: Multiaxial CT images of the head were performed without the use of intravenous contrast. A dose lowering technique was utilized adhering to the principles of ALARA. Comparison: 07/16/2017 Findings: The paranasal sinuses and mastoid air cells are clear. The calvarium and skull base are intact. The ventricles and sulci are within normal limits. There is no mass, hematoma, midline shift, or acute infarct. Impression: No acute intracranial abnormality. The above report was generated using voice recognition software. It may contain grammatical, syntax or spelling errors. Electronically signed by: Ridge Appiah M.D. 12/30/2018 7:03 PM ECG Data Attestation: I personally reviewed and interpreted this ECG as follows: Indication: other (dizziness) Rate (beats per minute): 68 Rhythm: sinus rhythm (with appearance of possible bigeminy) Findings: + other (normal axis, normal intervals); no ST depression and no ST elevation Blood Pressure Blood Pressure Findings: Elevated blood pressure Blood Pressure Disposition: further management by hospitalist QUYEN Narrative Patient here initially well-appearing despite complaints, however concern for worsening dizziness. Will patient and admit to poor p.o. intake and initial symptoms sounded more postural in nature, significant ataxia and ambulatory dysfunction noted which appears to be well out of patient's baseline. Given age and risk factors, discussed with him concern for possible stroke. Head CT normal, however they were in agreement with additional evaluation using MRI. Several different rhythm strips were printed for me by the quality assurance monitor which did show variable heart rhythms. Patient did have some PACs, however at times appeared to also have very brief episodes of atrial flutter. Patient with no prior history of atrial fibrillation or atrial flutter according to old records as well as family at bedside. I spent significant time at bedside trying to palpate the patient's pulse to see if it correlated with any change in rhythm on telemetry. This was unsuccessful. However I could not tell if a change in rhythm precipitated a worsening of the patient's tremors or if worsening tremors created more artifact on telemetry which mimicked dysrhythmia. Given patient's potential risk of dysrhythmias due to age of medications, I discussed this with the hospitalist also. Patient will be sent for MRI tonight, and I discussed with him additional monitoring overnight and possible cardiology evaluation in the morning. Patient with no palpitations or chest pain. Patient and family made aware of all results were in agreement with plan. Patient still did have significant ambulatory dysfunction here, and was being carefully rehydrated as a precaution. I did discuss with patient and family due to nature of his Parkinson's disease, is increased ataxia and dizziness may be a decline in his usual disease process. There was some concern that this may been due to consumption of wine with lunch, however patient and family state that this is a usual weekly event for him and they have never noticed these symptoms following consumption of wine with lunch previously. Impression & Plan Dizziness, Ambulatory dysfunction, Dehydration, Dysrhythmia, Ataxia Discharge Plan Visit Data *Final* Discharge Date/Time: 12/30/18 23:00 Chief Complaint: Dizziness Stated Complaint: DIZZY,LIGHT HEADED,WEAK ED Provider: Katlyn Jain Discharge Problem: Dizziness, Ambulatory dysfunction, Dehydration, Dysrhythmia, Ataxia Patient Disposition: Admitted As Inpatient Discharge Instructions Interventions: ED Discharge Assessment Last Done: 12/30/18 23:00 The scribe's documentation has been prepared under my direction and personally reviewed by me in its entirety. I confirm that the note above accurately refl ects all work, treatment, procedures, and medical decision making performed by me.
[2019-01-01] MEDS: HEPARIN SOD 5,000 UNIT/0.5 ML VIAL SQ SCH ×2 (05:45→15:29)
[2019-01-01] MEDS: CARBIDOPA/LEVODOPA 25/100MG TAB PO SCH ×2 (08:16→13:02)
[2019-01-01] MEDS: ASPIRIN 81 MG ECTAB PO SCH (08:16)
[2019-01-01] MEDS: CHOLECALCIFEROL 1,000 UNITS TAB PO SCH (08:17)
[2019-01-01] MEDS ORDERED: AMLODIPINE BESYLATE 5 MG TAB PO SCH (09:00)
--- NOTE | 2019-01-01 10:44 | Cardiology Progress Note ---
Date of Service January 01, 2019 Assessment & Plan (1) Orthostatic lightheadedness: improving with hydration believe patient to be euvolemic at this point, will d/c fluids (2) Ambulatory dysfunction: PT/OT eval ordered on admission ok to d/c tele for eval (3) Hypertension: elevated with discontinuation of metoprolol will start amlodipine 5mg daily does not need to remain hospitalized for bp control my office will arrange outpatient f/u in 2-3 weeks (4) Bradycardia: resolved with discontinuation of beta julia Subjective Pt seen and examined, states that he feels "ok" today. Has not yet ambulated this AM. Denies chest pain, sob, palpitations, lightheadedness or dizziness. tele reviewed: sinus rhythm with rates in 70's-80's. Review of Systems All systems reviewed & are unremarkable except as noted in HPI & below Physical Exam Vital Signs (Past 24 Hours): Last Vital Signs Temp 36.3 C L 01/01/19 07:13 Pulse 56 L 01/01/19 07:13 Resp 18 01/01/19 07:13 BP 176/94 H 01/01/19 07:13 Pulse Ox 96 01/01/19 07:13 Physical Exam: General: Awake, alert and oriented x 3. No acute distress. HEENT: Normocephalic, atraumatic. Pupils equal, round and reactive to light and accommodation. Extraocular muscles are intact. Anicteric sclera. Moist mucous membranes. Neck: No JVD. No bruit. Cardiovascular: Regular. Positive S-4. Normal S-1 and S-2. No S-3. No murmurs or rubs. Pulmonary: Clear to auscultation B/L. No rales, rhonchi or wheezing Abdomen: Bowel sounds x 4, soft. No rebound, guarding or tenderness. No organomegaly. Extremities: No clubbing, cyanosis or edema. +2 pedal pulses bilaterally. Skin: Warm and dry.
[2019-01-01] MEDS: SODIUM CHLORIDE 0.9% 1000ML 1,000 ML IV SCH (13:01)
--- NOTE | 2019-01-01 14:48 | Hospitalist Progress Note ---
Date of Service January 01, 2019 Assessment & Plan (1) Orthostatic lightheadedness: Orthostatic Hypotension Present on admission with lightheadedness and weakness Positive orthostatic Vital CT head showed no acute intracranial abnormality MRA neck showed 30% diameter stenosis of the proximal right internal carotid artery. MRA head showed no significant stenosis, occlusion, or aneurysm within the [place] of [place]. MRI neck showed no evidence for an acute ischemic event. No arrhythmia from tele monitor Cardiology on board and recommended to discontinue metoprolol [place] PT/OT Fall precaution OK from cardiology standpoint to discharge (2) VIRIDIANA (acute kidney injury): Creatinine 1.4 on admission, improved to 1.08 Received IVF Avoid nephrotoxic agents Resolved (3) Parkinson disease: Cont Sinemet. stable (4) Dysrhythmia: Continue monitor in tele Cardiology on board Metoprolol on hold (5) Hypertension: BP elevated Starting on amlodipine 5mg BP improved Monitor BP (6) Erythematous condition, unspecified: Pressure Ulcer stage 3 Wound care on board Continue daily wound care Bradycardia Metoprolol discontinued Resolved (7) DVT prophylaxis: On Heparin CODE STATUS Full Code Disposition Discharge home today Subjective Pt was seen and examined Sitting in chair with no distress Pt said that he feels fine He said that he does not have any dizziness Denies any chest pain, palpitation and SOB Physical Exam Vital Signs (Past 24 Hours): Last Vital Signs Temp 36.5 C 01/01/19 11:22 Pulse 75 01/01/19 11:22 Resp 97 H 01/01/19 11:22 BP 114/62 01/01/19 11:22 Pulse Ox 97 01/01/19 11:22 Physical Exam: General- No acute distress Head- atraumatic Eyes- PERRL, EOMI, ENT- oropharynx clear Neck- supple, no JVD Lungs- clear to auscultation Heart- regular rhythm; no murmur Abdomen- normal bowel sounds, soft, nontender Extremities- no calf tenderness Neuro- alert, oriented x 3; PERRL, EOMI;+tremors Skin- warm & dry (1) Dysrhythmia Arrhythmia type: unspecified cardiac arrhythmia Qualified Code(s): I49.9 - Cardiac arrhythmia, unspecified
--- NOTE | 2019-01-06 20:45 | Discharge Summary ---
Date of Service January 01, 2019 Admission HPI Per Admitting Provider 88 yo M with h/o Parkinson's disease presented to the ER after significant weakness and lightheadedness today just after a lunch sitting. He had been sitting for a long time per and went to stand but couldn't do that without assistance. Once in a standing position he felt too lightheaded to try to walk and sat back in his chair. Although he has suffered from orthostatic hypotension in the past, this was different because of the weakness he felt in his legs. He subsequently arrived at the ER and received 1L of fluid. He reports being able to ambulate to the restroom while in the ER twice without any difficulties. There is no new neurologic deficit reported different from his baseline, otherwise. He denies any UTI symptoms, abdominal pain, chest pain, palpitations, shortness of breath, headache, visual changes, numbness, difficulty speaking or swallowing, facial droop, confusion, syncope or other stroke like symptoms. He reports feeling well up until this point today. He did have one glass of wine with this lunch, which is a tradition for him every Monday and hasn't affected him poorly. He does admit to not staying as hydrated as he should. Bloodwork reflects a mild VIRIDIANA. Admission Exam Per Admitting Provider CONSTITUTIONAL: WNWD, vitals as above, generally well-appearing EYES: EOMI bilaterally, PERRL, normal conjuctivae, no scleral icterus ENT: oropharynx clear,no maxillary or ethmoid sinus tenderness NECK: trachea midline, no lymphadenopathy RESPIRATORY: clear to auscultation bilaterally, no crackles, rales or wheezes, normal respiratory effort CARDIOVASCULAR: regular rate and rhythm, S1 and 2 heard without murmurs, gallops or rubs, no JVD, no peripheral edema GASTROINTESTINAL: normal bowel sounds, soft, nontender, nondistended MUSCULOSKELETAL: strength 5/5 throughout, head is normocephalic and atraumatic SKIN: warm and dry, erythematous area in sacral region without evidence of breakdown, nonblanchable. NEUROLOGIC: patellar DTR could not be elicited, BR DTR 2+ bilat. PERRL, EOMI, no facial palsy, no dysarthria. CN 2-12 intact, no apparent sensory deficit, normal cognition, normal speech, +tremor in bilat upper extremities PSYCHIATRIC: alert cooperative and oriented to person, place and time. Principal Diagnosis Orthostatic lightheadedness Orthostatic Hypotension Bradycardia Acute Kidney Injury Hypertension Discharge Exam General- No acute distress Head- atraumatic Eyes- PERRL, EOMI, ENT- oropharynx clear Neck- supple, no JVD Lungs- clear to auscultation Heart- regular rhythm; no murmur Abdomen- normal bowel sounds, soft, nontender Extremities- no calf tenderness Neuro- alert, oriented x 3; PERRL, EOMI;+tremors Skin- warm & dry Discharge Data Allergies Allergy/AdvReac Type Severity Reaction Status Date / Time Bactrim Allergy Severe ANEMIA, Verified 03/04/18 13:42 THROMBOCYTOPENIA sulfamethoxazole Allergy Severe ANEMIA, Verified 12/30/18 19:15 THROMBOCYTOPENIA trimethoprim Allergy Severe ANEMIA, Verified 12/30/18 19:15 THROMBOCYTOPENIA clopidogrel Allergy Unknown UNKNOWN Verified 12/30/18 19:15 allopurinol AdvReac Intermediate DIARRHEA Verified 12/30/18 19:15 Consultations 12/30/18 20:30 ED Decision to Admit Stat 12/30/18 23:46 Consult Case Management - Discharge Planning Routine 12/31/18 03:57 Consult Cardiology Routine Ordered Studies 12/30/18 18:28 CT head/brain wo con Stat 12/30/18 19:32 MR angio head wo con Stat MR angio neck wo/w con Stat MR brain wo con Stat XR chest 1V portable CLINICAL HISTORY: dizziness mental status change COMPARISON STUDY: 03/04/2018 FINDINGS: Moderate emphysematous change. Chronic pleural scarring left lung base. Lungs otherwise appear clear. IMPRESSION: Emphysematous change. No acute process. The above report was generated using voice recognition software. It may contain grammatical, syntax or spelling errors. Electronically signed by: Ridge Appiah M.D. 12/30/2018 6:42 PM Dictated: 12/30/181840 Transcribed: 12/30/[address] head/brain wo con CT DOSE: 614.27 mGy.cm HISTORY: Mental status change dizziness TECHNIQUE: Multiaxial CT images of the head were performed without the use of intravenous contrast. A dose lowering technique was utilized adhering to the principles of ALARA. Comparison: 07/16/2017 Findings: The paranasal sinuses and mastoid air cells are clear. The calvarium and skull base are intact. The ventricles and sulci are within normal limits. There is no mass, hematoma, midline shift, or acute infarct. Impression: No acute intracranial abnormality. The above report was generated using voice recognition software. It may contain grammatical, syntax or spelling errors. Electronically signed by: Ridge Appiah M.D. 12/30/2018 7:03 PM Dictated: 12/30/181902 Transcribed: 12/30/181902 MR brain wo con HISTORY: Mental status change dizziness TECHNIQUE: Multiplanar multisequence MRI of the brain was performed without the use of contrast. COMPARISON STUDY: None. FINDINGS: There are no areas of restricted diffusion to suggest acute infarction. The midline structures are intact. The paranasal sinuses are clear. The mastoid air cells are clear. The ventricles and sulci are within normal limi ts for age. There is no mass, hematoma, midline shift. The major vascular flow- voids at the skull base are well maintained. Minimal chronic small vessel change of aging the periventricular and deep matter regions. IMPRESSION: 1. No evidence for an acute ischemic event. 2. Age-related mild chronic small vessel change throughout both cerebral hemispheres. 3. Otherwise negative study The above report was generated using voice recognition software. It may contain grammatical, syntax or spelling errors. Electronically signed by: Ridge Appiah M.D. 12/30/2018 11:07 PM Dictated: 12/30/18 2306 Transcribed: 12/30/182305 MR angio head wo con HISTORY: Status change dizziness TECHNIQUE: 3-D [id number] MRA of the brain was performed without contrast. COMPARISON STUDY: 07/18/2017 FINDINGS: Visualized intracranial internal carotid arteries, distal vertebral arteries, and basilar artery are widely patent. There is no significant stenosis, occlusion, or aneurysm seen within the bilateral ACAs, MCAs, or farmer cash grain. IMPRESSION: No significant stenosis, occlusion, or aneurysm within the [place]. Normal study The above report was generated using voice recognition software. It may contain grammatical, syntax or spelling errors. Electronically signed by: Ridge Appiah M.D. 12/30/2018 10:51 PM Dictated: 12/30/182248 Transcribed: 12/30/182248 NECK MRA HISTORY: L status change, lightheadedness. dizziness TECHNIQUE: Wswj-wg-cvxyof and gadolinium-enhanced MRA of the neck was performed both before and after the intravenous administration of contrast. All measurements were calculated based on NASCET criteria. The patient was injected with 6 cc of intravenous Gadavist. COMPARISON STUDY: None. FINDINGS: The aortic arch and proximal great vessels are widely patent. There is a mild focal stenosis of the proximal right internal carotid artery with an estimated 30% diameter narrowing. No evidence of a significant stenotic lesions are visualized. There are no findings to indicate an aneurysm. There is no evidence for vertebral stenosis. IMPRESSION: 30% diameter stenosis of the proximal right internal carotid artery. No evidence of significant left internal carotid artery stenosis. No evidence of significant vertebral artery stenosis. Electronically signed by: Selwyn Turk M.D. 12/31/2018 7:08 AM Dictated: 12/31/18702 Transcribed: 12/31/18702 Hospital Course (1) Orthostatic lightheadedness: Orthostatic Hypotension Present on admission with lightheadedness and weakness Positive orthostatic Vital CT head showed no acute intracranial abnormality MRA neck showed 30% diameter stenosis of the proximal right internal carotid artery. MRA head showed no significant stenosis, occlusion, or aneurysm within the [place]. MRI neck showed no evidence for an acute ischemic event. No arrhythmia from tele monitor Cardiology on board and recommended to discontinue metoprolol [place] PT/OT Fall precaution OK from cardiology standpoint to discharge (2) VIRIDIANA (acute kidney injury): Creatinine 1.4 on admission, improved to 1.08 Received IVF Avoid nephrotoxic agents Resolved (3) Parkinson disease: Cont Sinemet. stable (4) Dysrhythmia: Continue monitor in tele Cardiology on board Metoprolol on hold (5) Hypertension: BP elevated Starting on amlodipine 5mg BP improved Monitor BP (6) Erythematous condition, unspecified: Pressure Ulcer stage 3 Wound care on board Continue daily wound care Bradycardia Metoprolol discontinued Resolved (7) DVT prophylaxis: On Heparin CODE STATUS Full Code Disposition Discharge home today Total Time Total Time Spent Total Time Spent (In Minutes): 35 minutes Total Time Includes: Examination of the Patient, Discharge Planning, Medication Reconciliation, Communication With Other Providers and Other Discharge Plan Discharge Items Patient Disposition: Home - Home Health Services Reason For Visit: WEAKNESS Discharge Diagnosis: Orthostatic lightheadedness Orthostatic Hypotension Bradycardia Acute Kidney Injury Hypertension Discharge Goals: Decrease discomfort, Improve disease control, Improve function and Increase independence Activity: Resume your previous activity Activity Comment: As tolerated Non-emergency contact: Primary Care Provider and Case Investigator Call non-emergency contact if: you have any medication questions and your temperature is above 101 Follow-up/Referrals: Jana Narayan [place] [Primary Care Provider] - Diet: Heart Healthy Addtl Provider Instructions: Follow up with your primary care provider Dr. Ramirez on 01/09 @ 10:25 AM Follow up with cardiology in [address] Cornejo (Office will contact you for the appointment) Continue physical and occupational therapy Fall precaution Monitor blood pressure Prescriptions: New amlodipine [Norvasc] 5 mg Tablet 5 mg PO QAM 30 Days Qty: 30 RF: 0 Continued polyethylene glycol 3350 [Miralax] 17 gram Powder In Packet 17 g PO HS PRN (Reason: Constipation) RF: 0 alendronate [Fosamax] 70 mg Tablet 70 mg PO WK RF: 0 aspirin [Aspir-81] 81 mg Tablet,Delayed Release (Dr/Ec) 81 mg PO DAILY RF: 0 acetaminophen [Tylenol Extra Strength] 500 mg Tablet 500 mg PO Q6H PRN (Reason: Fever Or Pain) RF: 0 carbidopa-levodopa 25-100 mg Tablet 1 tab PO TID RF: 0 cholecalciferol (vitamin D3) [Vitamin D3] 1,000 unit Capsule 1,000 unit PO DAILY RF: 0 ketoconazole 2 % Shampoo 1 dose TOPICAL 2XWK RF: 0 Discontinued metoprolol succinate 25 mg Tablet Extended Release 24 Hr 25 mg PO DAILY RF: 0 Stand-Alone Forms: [facility] Discharge Orders: Discharge Order (Routine); Ordered 01/01/19 Ordered By: Olinda Cortes Admission Data Admit Date/Time: 12/30/18 21:26 Attending Provider: Olinda Cortes Admit Provider: Gina Hamilton Primary Care Provider: Jana Narayan [place] Other Providers: Gina Hamilton ; Steven Cordero Service: Telemetry Medical Other Interventions: Discharge Summary Assessment (RN) Last Done: 01/01/19 15:32 DC Date/Time DO NOT enter until pt leaves facility: 01/01/19 16:19
== END 2019-01-01 16:19 | disposition home health service (06) | DRG 312 ==
LOC: ED 17:46 → INTOOBSV 21:26 → OBSVTOIN 21:26 → 2N 21:26
DX: M10.9 Gout, unspecified; G47.33 Obstructive sleep apnea (adult) (pediatric); D69.6 Thrombocytopenia, unspecified; R00.1 Bradycardia, unspecified; Z96.653 Presence of artificial knee joint, bilateral; I95.1 Orthostatic hypotension; L89.93 Pressure ulcer of unspecified site, stage 3; D64.9 Anemia, unspecified; R27.0 Ataxia, unspecified; N18.3 Chronic kidney disease, stage 3 (moderate); G20 Parkinson's disease; N17.9 Acute kidney failure, unspecified; Z88.2 Allergy status to sulfonamides; Z88.8 Allergy status to other drugs, medicaments and biological substances; E86.0 Dehydration; Z87.891 Personal history of nicotine dependence